=== PATIENT | male | born 1975 | race African-American/Black ===

== ENCOUNTER 2023-08-15 11:15 | Emergency (ER) | payer SELFPAY ==
--- OUTSIDE RECORDS SUMMARY | 2023-08-15 11:21 | XMS REPORT | Continuity of Care Document ---
:1975 Author Organization [facility] t Address [address] [place] [address] Care Team Providers Name Role Phone Antwan Ramey Attending Clinician Unavailable Johnson Attending Clinician Unavailable Daniel Torres Attending Clinician Unavailable Nawaf Borrego Attending Clinician Unavailable Jhoan Vela Attending Clinician Unavailable Da Ivey Attending Clinician Unavailable Molly Grey Attending Clinician Unavailable Antwan Ramey Admitting Clinician Unavailable Johnson Admitting Clinician Unavailable Daniel Torres Admitting Clinician Unavailable Nawaf Borrego Admitting Clinician Unavailable Jhoan Vela Admitting Clinician Unavailable Da Ivey Admitting Clinician Unavailable Molly Grey Admitting Clinician Unavailable Payers Payer Name Policy Type Policy Number Effective Date Expiration Date S yeny [facility]: [facility] [id number] 2022 2022 00:00:00 [place] (PPO) 00:00:00 Problems Condition Condition Condition Status Onset Resolution Last Treating Co mments Source Name Details Category Date Date Treatment Clinician Date History of History of Problem Active [facility] pancreatit Pancreatit 6-01 [place] christopher is is 00:00: Practic 00 e Mixed Mixed Problem Active [facility] hyperlipid Hyperlipid 7-18 [place] christopher emia emia 00:00: Practic 00 e Anemia Anemia Problem Active [facility] 7-18 Family 00:00: Practic 00 e Leukopenia Leukopenia Problem Active [facility] 7[facility] Family 00:00: Practic 00 e Essential Essential Problem Active [facility] hypertensi Hypertensi 6-29 [place] christopher on on 00:00: Practic 00 e Allergies, Adverse Reactions, Alerts Allergy Allergy Status Severity Reaction(s) Onset Inactive Treating Comm ents Source Name Type Date Date Clinician No Known DA Active U 2022-0 [facility] [place] 00:[facility]: d 00 [facility] No Known DA Active U 2020-1 [facility] 0-25 [place] 00:00: d 00 [facility] No Known DA Active U 2020-1 [facility] 0-25 [place] 00:00: d 00 [facility] No Known DA Active U 2020-0 [facility] 9-02 [place] 00:00: d 00 [facility] No Known DA Active U 2020-0 [facility] 7-30 [place] 00:00: d 00 [facility] No Known DA Active U 2020-0 [facility] 7[facility]30 [place] 00:00: d 00 [facility] No Known DA Active U 2020-0 [facility]ie 4-12 [place] 00:00: d 00 [facility] No Known DA Active U 2020-0 [facility] 4-12 [place] 00:00: d 00 [facility] Social History Smoking Status Start Date Stop Date Source Never Smoker [facility] Medications Ordered Filled Start Stop Current Ordering Indication Dosage Frequency Signature Comments Components Source Medication Medication Date Date Medication? Clinician (SIG) Name Name amlodipine amlodipine No amlodipine [facility] 10 mg 10 mg 10 mg Family tablet TAKE tablet TAKE tablet Practic ONE (1) ONE (1) TAKE ONE e TABLET(S) TABLET(S) (1) BY MOUTH BY MOUTH TABLET(S) DAILY. DAILY. BY MOUTH DAILY. carvedilol carvedilol No carvedilol [facility] 25 mg 25 mg 25 mg Family tablet TAKE tablet TAKE tablet Practic ONE (1) ONE (1) TAKE ONE e TABLET(S) TABLET(S) (1) BY MOUTH BY MOUTH TABLET(S) TWICE A DAY TWICE A DAY BY MOUTH . . TWICE A DAY . Creon Creon No Creon [place] 12,000-38,0 12,000-38,0 12,000-38, Family 00-60,000 00-60,000 000-60,000 Practic unit unit unit e capsule,del capsule,del capsule,de ayed ayed layed release release release TAKE TWO TAKE TWO TAKE TWO (2) (2) (2) CAPSULE(S) CAPSULE(S) CAPSULE(S) BY MOUTH BY MOUTH BY MOUTH THREE TIMES THREE TIMES THREE A DAY. A DAY. TIMES A DAY. gemfibrozil gemfibrozil No 1 BID gemfibrozi [facility] 600 mg 600 mg l 600 mg Family tablet Take tablet Take tablet Pract[facility] 1 tablet 1 tablet Take 1 e twice a day twice a day tablet by oral by oral twice a route for route for day by 90 days. 90 days. oral route for 90 days. hydrocodone hydrocodone No hydrocodon [facility] 5 5 e 5 Family mg-acetamin mg-acetamin mg-acetami Practic ophen 325 ophen 325 nophen 325 e mg tablet mg tablet mg tablet TAKE 1 TAKE 1 TAKE 1 TABLET BY TABLET BY TABLET BY MOUTH EVERY MOUTH EVERY MOUTH 8 HOURS 8 HOURS EVERY 8 NEEDED FOR NEEDED FOR HOURS ACUTE ACUTE NEEDED FOR PANCREATITI PANCREATITI ACUTE S S PANCREATIT IS losartan losartan No losartan [facility] 100 mg 100 mg 100 mg Family tablet TAKE tablet TAKE tablet [facility] ONE (1) ONE (1) TAKE ONE e TABLET(S) TABLET(S) (1) BY MOUTH BY MOUTH TABLET(S) DAILY. DAILY. BY MOUTH DAILY. acetaminoph acetaminoph No acetaminop [facility] en 300 en 300 hen 300 Family mg-codeine mg-codeine mg-codeine [facility] 30 mg 30 mg 30 mg e tablet TAKE tablet TAKE tablet 1 TABLET BY 1 TABLET BY TAKE 1 MOUTH EVERY MOUTH EVERY TABLET BY 4 HOURS 4 HOURS MOUTH NEEDED FOR NEEDED FOR EVERY 4 ACUTE PAIN ACUTE PAIN HOURS NEEDED FOR ACUTE PAIN Vital Signs Vital Name Observation Time Observation Value Comments Source BP Diastolic 2022-05-20 00:00:00 73 mm[Hg] [facility] Height 2022-05-20 00:00:00 74 [in_i] [facility] BP Systolic 2022-05-20 00:00:00 180 mm[Hg] [facility] BP Diastolic 2022-03-08 00:00:00 99 mm[Hg] [facility] Height 2022-03-08 00:00:00 74 [in_i] [facility] BMI (Body Mass 2022-03-08 00:00:00 34.9 kg/m2 [facility] BP Systolic 2022-03-08 00:00:00 156 mm[Hg] [facility] Body Weight 2022-03-08 00:00:00 272 [lb_av] [facility] BP Diastolic 2021-04-23 00:00:00 84 mm[Hg] [facility] Height 2021-04-23 00:00:00 74 [in_i] [facility] BMI (Body Mass 2021-04-23 00:00:00 35 kg/m2 [facility] BP Systolic 2021-04-23 00:00:00 122 mm[Hg] [facility] Body Weight 2021-04-23 00:00:00 272.4 [lb_av] [facility] Height 2021-04-05 00:00:00 74 [in_i] [facility] BMI (Body Mass 2021-04-05 00:00:00 34.5 kg/m2 [facility] BP Systolic 2021-04-05 00:00:00 150 mm[Hg] [facility] Body Weight 2021-04-05 00:00:00 268.6 [lb_av] [facility] BP Diastolic 2021-04-05 00:00:00 105 mm[Hg] [facility] Procedures Procedure Date / Time Performed Performing Clinician Sour e Hernia Repair [facility] P racsherita Pancreatectomy [facility] P brian Plan of Care Planned Activity Planned Date Details Comments Source Future Scheduled Test 2022-08-08 lipid panel, serum [facility] 00:00:00 [code = lipid Practice panel, serum] Future Scheduled Test 2022-08-08 CMP, serum or [facility] 00:00:00 plasma [code = Practice CMP, serum or plasma] Encounters Start End Encounter Admission Attending Care Care Encounter Source Date/Time Date/Time Type Type Clinicians Facility Department ID 2021-01-17 Inpatient HCAK HCAK [id number] [facility] 10:50:[address] [facility] 2023-05-06 2023-05-07 Inpatient EM Tanvir [facility] [id number] [facility] 15:20:00 12:22:00 Somali 15 [facility] 2023-03-19 2023-03-19 Outpatient Dara_A VFP VFP [id number] [facility] 00:00:00 00:00:00 [id number] Family Practic e 2022-10-16 2022-10-19 Inpatient EM Daniel Torres [facility] [id number] [facility] 23:53:00 12:04:00 34 [facility] 2022-09-15 2022-09-15 Outpatient Dara_A VFP VFP [id number] [facility] 00:00:00 00:00:00 [id number] Family Practic e 2022-08-11 2022-08-11 Outpatient Dara_A VFP VFP [id number] [facility] 00:00:00 00:00:00 [id number] Family Practic e 2022-07-09 2022-07-10 Inpatient EM Nawaf Borrego [facility] [id number] [facility] 04:52:00 16:32:00 92 [facility] 2022-07-07 2022-07-07 Outpatient Dara_A VFP VFP [id number] [facility] 00:00:00 00:00:00 [id number] Family Practic e 2022-06-01 2022-06-03 Inpatient EM Mirian [facility] [id number] [facility] 22:57:00 12:35:00 Jhoan 89 [facility] 2022-05-25 2022-05-25 Outpatient Dara_A VFP VFP [id number] [facility] 00:00:00 00:00:00 [id number] Family Practic e 2022-05-20 2022-05-20 [place] Dara_A VFP [place] - [id number] [facility] 00:00:00 00:00:00 [facility] [id number] Famil y BACKEND JAVA DEVELOPER: [id number] Medical - Prac tic [address] ([facility]) [place] [address] , Ph. 2022-04-28 2022-04-28 Outpatient Dara_A VFP VFP [id number] - [facility] 01:53:00 01:53:00 [id number] Family Practic e 2022-04-27 2022-04-27 Outpatient Dara_A VFP VFP [id number] - [facility] 11:56:00 11:56:00 [id number] Family Practic e 2022-03-08 2022-03-08 [place] Dara_A VFP [place] - [id number] [facility] 00:00:00 00:00:00 [facility] [id number] Famil y BACKEND JAVA DEVELOPER: [id number] Medical - [facility] [address] ([facility]) [place] [address] , Ph. 2022-03-03 2022-03-03 Outpatient Dara_A VFP VFP [id number] - [facility] 12:42:00 12:42:00 [id number] Family Practic e 2022-02-17 2022-02-17 Outpatient Dara_A VFP VFP [id number] [facility] 05:08:00 05:08:00 [id number] Family Practic e 2021-08-01 2021-08-03 Inpatient EM Loni [facility] [id number] [facility] 15:51:00 13:24:00 Da 69 [facility] 2021-07-01 2021-07-01 Outpatient Dara_A VFP VFP [id number] - [facility] 10:38:00 10:38:00 [id number] Family Practic e 2021-06-09 2021-06-12 Inpatient MAI Zuñiga MED [id number] [facility] 19:56:00 13:00:00 Molly 02 [facility] 2021-06-09 2021-06-12 Inpatient EM Que [facility] [id number] [facility] 19:56:00 13:00:00 Molly 02 [facility] 2021-05-06 2021-05-09 Inpatient EM Nawaf Borrego [facility] [id number] [facility] 08:31:00 10:53:00 96 [facility] 2021-04-23 2021-04-23 [place] Dara_A VFP [place] - [id number] [facility] 00:00:00 [facility]00[facility] [id number] Famil y BACKEND JAVA DEVELOPER: [id number] Medical - Prac tic Fm [address] ([facility]) [place] [address] , Ph. 2021-04-14 2021-04-14 Outpatient Dara_A VFP VFP [id number] [facility] 11:37:00 11:37:00 [id number] Family Practic e 2021-04-08 2021-04-08 Outpatient Dara_A VFP VFP [id number] [facility] 11:58:00 11:58:00 [id number] Family Practic e 2021-04-05 2021-04-05 [place] Dara_A VFP [place] - [id number] [facility] 00:00:00 00:00[facility] [id number] Famil y BACKEND JAVA DEVELOPER: [id number] Medical - Prac tic Fm [address] ([facility]) [place] [address] , Ph. Results Test Description Test Time Test Comments Results Result Comments Source COMPREHENSIVE METABOLIC PANEL 2023-05-07 03:44:00 Test Item Value Reference Range Interpretation Comme nts SODIUM (test code = NA) 135 mmol/L 137-145 L POTASSIUM (test code = K) 4.1 mmol/L 3.4-5.0 N CHLORIDE (test code = CL) 103 mmol/L 98-107 N CARBON DIOXIDE (test code = 24 mmol/L 22-30 N CO2) ANION GAP (test code = GAP) 11 GLUCOSE (test code = GLU) 99 mg/dL 74-106 N BLOOD UREA NITROGEN (test 12 mg/dL 9-20 N code = BUN) GLOMERULAR FILTRATION RATE 83 mL/min T he Glomerular Filtration Rate (test code = GFR) is a calcu lated parameterbased on serum Creati nine, patient age and sex. GFR va luesless than 60 mL/min/1.73 squ are meters are indicative ofCh ronic Kidney Disease. Values less than 15 mL/min/1.73squa re meters indicate Kidney failure. The calculation for GFR is based on the CKD-EPI (20 21) calculation. This formulais race indifferent and is the nando mmended formula for GFRby the [facility] for Adults.The GFR will not calcul ate if the sex is unknown or if t hepatient's age is <18 years. CREATININE (test code = 1.1 mg/dL 0.7-1.3 N CREAT) TOTAL PROTEIN (test code = 6.5 g/dL 6.3-8.2 N * PROT) "A positive bias m ay occur for patients taking Eltrombopag(a bone marrow sti mulant used to treat thrombocy topenia andaplastic anemia)." ALBUMIN (test code = ALB) 3.8 g/dL 3.5-5.0 N CALCIUM (test code = CA) 8.2 mg/dL 8.4-10.2 L BILIRUBIN TOTAL (test code = 0.5 mg/dL 0.2-1.3 N "A positive bias may occur for BILT) patients taking Eltrombopag(a bone marrow sti mulant used to treat thrombocy topenia andaplastic ane zhang)." BILIRUBIN CONJUGATED (test 0 mg/dL 0-0.3 N " A positive bias may occur for code = BILCON) patients taki ng Eltrombopag(a bone marrow sti mulant used to treat thrombocy topenia andaplastic ane zhang)." CONJ UGATED BILIRUBI N IS THE REPLACEMENT ASS AY FOR DIRECTBILIRUBIN . BILIRUBIN UNCONJUGATED (test 0.3 mg/dL 0-1.1 N code = BILUNC) SGOT/AST (test code = AST) 146 U/L 15-46 H SGPT/ALT (test code = ALT) 117 U/L 0-49 H ALKALINE PHOSPHATASE (test 71 U/L 38-126 N code = ALKP) INDEX HEMOLYSIS (test code = < 15 Index/DL 0-100 N HEMINDEX) [id number] 03:44:00 Test Item Value Reference Range Interpretation Comments PHOSPHOROUS (test code = PHOS) 3.6 mg/dL 2.5-4.5 N [id number] 03:44:00 Test Item Value Reference Range Interpretation Comments MAGNESIUM (test code = MAG) 2.0 mg/dL 1.6-2.3 N CBC W/AUTO [id number] 03:13:00 Test Item Value Reference Range Interpretation Comments WHITE BLOOD CELL (test code = 4.0 x10 3/uL 5.0-12.0 L WBC) RED BLOOD CELL (test code = 3.93 x10 6/uL 4.70-6.10 L RBC) HEMOGLOBIN (test code = HGB) 9.2 g/dL 14.0-18.0 L HEMATOCRIT (test code = HCT) 30.7 % 37.0-49.0 L MEAN CELL VOLUME (test code = 78 fL 80-94 L MCV) MEAN CELL HGB (test code = MCH) 23.4 pg 27-31 L MEAN CELL HGB CONCENTRATION 30.0 g/dL 33-37 L (test code = MCHC) RED CELL DISTRIBUTION WIDTH 16.5 % 11.5-15.5 H (test code = RDW) PLATELET COUNT (test code = 197 x10 3/uL 130-400 N PLT) MEAN PLATELET VOLUME (test code 11.3 fL 9.4-16.4 N = MPV) NEUTROPHIL % (test code = NT%) 58.3 % 43-65 N IMMATURE GRANULOCYTE % (test 0.3 % 0.0-2.0 N code = IG%) LYMPHOCYTE % (test code = LY%) 28.1 % 20.5-45.5 N MONOCYTE % (test code = MO%) 9.0 % 5.5-11.7 N EOSINOPHIL % (test code = EO%) 3.3 % 0.9-2.9 H BASOPHIL % (test code = BA%) 1.0 % 0.2-1.0 N NUCLEATED RBC % (test code = 0.0 % 0-1.0 N NRBC%) NEUTROPHIL # (test code = NT#) 2.33 x10 3/uL 2.2-4.8 N IMMATURE GRANULOCYTE # (test 0.01 x10 3/uL 0-0.03 N code = IG#) LYMPHOCYTE # (test code = LY#) 1.12 x10 3/uL 1.3-2.9 L MONOCYTE # (test code = MO#) 0.36 x10 3/uL 0.3-0.8 N EOSINOPHIL # (test code = EO#) 0.13 x10 3/uL 0.0-0.2 N BASOPHIL # (test code = BA#) 0.04 x10 3/uL 0.0-0.1 N [id number] 15:13:00 Test Item Value Reference Range Interpretation Comments GLUBED (test code = GLUBED) 132 MG/DL 74-106 H LIPID PROFILE (CORONARY RISK)2023-05-06 05:28:00 Test Item Value Reference Range Interpretation Comments TRIGLYCERIDES (test 241 mg/dL TRIGLYCE RIDES code = TRIG) REFERENCE RANGE:Normal: < 150 mg/dLBorderline High: 150-199 mg/dLHigh: 200- 499 mg/dLVery High: >=500 mg/dL CHOLESTEROL (test 210 mg/dL CHOLESTERO L code = CHOL) REFERENCE RANGE:DESIRABLE : < 200 mg/dLBORDER LINE: 200-239 mg/dLHI GH: >=240 mg/dL HDL CHOLESTEROL (test 49 mg/dL 40-59 N code = HDL) LIPOPROTEIN LDL (test 116.07 mg/dL 32-99 H code = LDLC) CORONARY RISK FACTOR 4.29 CHOL/H DL RISK MALE: (test code = RISK) 1/2 AVG 3 .43 FEMALE: 1/2 AVG 3.27 AV G 4.97 AVG 4.44 2 X AVG 9.55 2X AVG 7.0 5 3X AVG 23.39 3X AV G 11.04~~~~~~~~~~ ~~~~~ ~~~~~~~~~~~~~~~ ~~~~~ ~~~~~~~~~~~~~~~ ~~~~~ ~~~~~National Cholesterol Education (NCEP ) Guidelines:~~~~ ~~~~~ ~~~~~~~~~~~~~~~ ~~~~~ ~~~~~~~~~~~~~~~ ~~~~~ ~~~~~~~~~~~ H DL Cholesterol<4 0mg/d L: HDL Choleste rol (Major risk fac tor for CHD)>60mg/d L: HDL Cholesterol (Negative risk factor for CHD)40-59mg/dL: Borderline Risk LDL Cholesterol<1 00mg/ dL: Desirable L DL-C [id number] 0-159 mg/dL: Borderli ne High Risk LDL-C 0-189 mg/dL: High ris k LDL-C concentra tion HDL-LDL Cholest pretty is affected by a number of facto rs suchas smoking, age and sex.~~~~~~~~~~~ ~~~~~ ~~~~~~~~~~~~~~~ ~~~~~ ~~~~~~~~~~~~~~~ ~~~~~ ~~~~ GAMMA GLUTAMYL [id number] 05:26:00 Test Item Value Reference Range Interpretation Comments GAMMA GLUTAMYL TRANSPEPTIDASE (test 261 U/L 12-58 H code = GGT) [id number] 05:26:00 Test Item Value Reference Range Interpretation Comments ALCOHOL (test code = < 10 mg/dL <10 ~~~~~~ ~~~~~~~~~~~~~~~ ALC) ~~~~~~~~~~~~~~~ ~~~~~~~ ~~~~~~~ RESULTS ARE TO BE USED FOR MED ICAL PURPOSES ONLY.F OR LEGAL PURPOSES THE SPECIMEN MUST B E COLLECTED BY A CHAINOF CUSTODY. LEGAL TESTING IS NOT PERFORME D BY THIS FACILITY. ~~~~~~~~~~~~~~~ ~~~~~~~ ~~~~~~~~~~~~~~~ ~~~~~~~ ~~~~~~ COMPREHENSIVE METABOLIC [id number] 05:18:00 Test Item Value Reference Range Interpretation Comments SODIUM (test code = 136 mmol/L 137-145 L NA) POTASSIUM (test 4.1 mmol/L 3.4-5.0 N code = K) CHLORIDE (test code 103 mmol/L 98-107 N = CL) CARBON DIOXIDE 28 mmol/L 22-30 N (test code = CO2) ANION GAP (test 10 code = GAP) GLUCOSE (test code 98 mg/dL 74-106 N = GLU) BLOOD UREA NITROGEN 12 mg/dL 9-20 N (test code = BUN) GLOMERULAR 93 mL/min The Glomerular FILTRATION RATE Filtration R ate is a (test code = GFR) calculated parameterbased on serum Creatinine, pat ient age and sex. GFR va luesless than 60 mL/min/ 1.73 square meters a re indicative ofCh ronic Kidney Disease. Values less than 15 mL/min/1.73squa re meters indicate Kidney failure. The calculation for GFR is based on the CK D-EPI (2020) calculat ion. This formulais race indifferent and is the recommended for nanci for GFRby the [facility] on for Adults.The GFR will not calculate if th e sex is unknown or if thepatient's ag e is <18 years. CREATININE (test 1.0 mg/dL 0.7-1.3 N code = CREAT) TOTAL PROTEIN (test 7.3 g/dL 6.3-8.2 N code = PROT) " A positive bias m ay occur for patients ta janessa Eltrombopag(a b one marrow stimulan t used to treat thrombocytopeni a andaplastic anemia)." ALBUMIN (test code 4.1 g/dL 3.5-5.0 N = ALB) CALCIUM (test code 8.9 mg/dL 8.4-10.2 N = CA) BILIRUBIN TOTAL 0.7 mg/dL 0.2-1.3 N "A positive bias may (test code = BILT) occur for patients taking Eltrombo pag(a bone marrow sti mulant used to treat thrombocytopeni a andaplastic ane zhang)." BILIRUBIN 0 mg/dL 0-0.3 N "A positive roxy s may CONJUGATED (test occur for p atients code = BILCON) taking Eltrom bopag(a bone marrow sti mulant used to treat thrombocytopeni a andaplastic ane zhang)." C ONJUGATE D BILIRUBIN IS THE REPLACEMENT ASS AY FOR DIRECTBILIRUBIN . BILIRUBIN 0.3 mg/dL 0-1.1 N UNCONJUGATED (test code = BILUNC) SGOT/AST (test code 116 U/L 15-46 H = AST) SGPT/ALT (test code 86 U/L 0-49 H = ALT) ALKALINE 72 U/L 38-126 N PHOSPHATASE (test code = ALKP) INDEX HEMOLYSIS < 15 0-100 N (test code = Index/DL HEMINDEX) [id number] 05:18:00 Test Item Value Reference Range Interpretation Comments PHOSPHOROUS (test code = PHOS) 3.8 mg/dL 2.5-4.5 N [id number] 05:18:00 Test Item Value Reference Range Interpretation Comments MAGNESIUM (test code = MAG) 2.1 mg/dL 1.6-2.3 N CBC W/AUTO [id number] 05:07:00 Test Item Value Reference Range Interpretation Comments WHITE BLOOD CELL (test code = 4.9 x10 3/uL 5.0-12.0 L WBC) RED BLOOD CELL (test code = 4.28 x10 6/uL 4.70-6.10 L RBC) HEMOGLOBIN (test code = HGB) 10.0 g/dL 14.0-18.0 L HEMATOCRIT (test code = HCT) 33.5 % 37.0-49.0 L MEAN CELL VOLUME (test code = 78 fL 80-94 L MCV) MEAN CELL HGB (test code = MCH) 23.4 pg 27-31 L MEAN CELL HGB CONCENTRATION 29.9 g/dL 33-37 L (test code = MCHC) RED CELL DISTRIBUTION WIDTH 16.5 % 11.5-15.5 H (test code = RDW) PLATELET COUNT (test code = 207 x10 3/uL 130-400 N PLT) MEAN PLATELET VOLUME (test code 11.3 fL 9.4-16.4 N = MPV) NEUTROPHIL % (test code = NT%) 68.4 % 43-65 H IMMATURE GRANULOCYTE % (test 0.2 % 0.0-2.0 N code = IG%) LYMPHOCYTE % (test code = LY%) 20.5 % 20.5-45.5 N MONOCYTE % (test code = MO%) 8.5 % 5.5-11.7 N EOSINOPHIL % (test code = EO%) 1.8 % 0.9-2.9 N BASOPHIL % (test code = BA%) 0.6 % 0.2-1.0 N NUCLEATED RBC % (test code = 0.0 % 0-1.0 N NRBC%) NEUTROPHIL # (test code = NT#) 3.37 x10 3/uL 2.2-4.8 N IMMATURE GRANULOCYTE # (test 0.01 x10 3/uL 0-0.03 N code = IG#) LYMPHOCYTE # (test code = LY#) 1.01 x10 3/uL 1.3-2.9 L MONOCYTE # (test code = MO#) 0.42 x10 3/uL 0.3-0.8 N EOSINOPHIL # (test code = EO#) 0.09 x10 3/uL 0.0-0.2 N BASOPHIL # (test code = BA#) 0.03 x10 3/uL 0.0-0.1 N - CT ABD PELVIS [id number] 19:04:00 [facility] 1975 Sex: M FAX: Bettie Chang [phone] [place]: St: REG Name: OLIVIA COOK [facility] : 1975 Age/S: 48/M [address] Unit: [id number] Loc: [place] [address] Phys: Bettie Arnold Acct: [id number] Dis Date: Status: REG ER PHONE #: [phone] Exam Date: 05/05/20231829 FAX #: [phone] Reason: R upper abdomen pain radiating to back EXAMS: CPT CODE: [id number] CT ABD PELVIS W/CONT [id number] EXAM: CT abdomen and pelvis with contrast. LOCATION: H 12 HISTORY: R upper abdomen pain radiating to back TECHNIQUE: Enhanced spiral slices were taken from the domes of the diaphragm, through the pubic symphysis. Sagittal and coronal, and where appropriate, MIP reformations were performed. One or more of the following dose reduction techniques were used: Automated exposure control, adjustment of the mA and/or kV according to patient size, and/or utilization of iterative reconstruction technique. Unless otherwisespecified, incidental findings do not require dedicated imaging follow-up. FINDINGS: The gallbladderis unremarkable. No pericholecystic fluid or wall thickening is present. There is an 8 cm right hepatic lucency with peripheral poles of enhancement in keeping with a cavernous hemangioma. The liver isotherwise unremarkable. The intra-and extrahepatic biliary tree is normal. The hepatic and portal veins are patent. The pancreas is normal. The pancreatic duct is normal in caliber. The spleen is normal with a small cyst noted. The adrenal glands are normal in size and shape. The kidneys are unremarkable. No perinephric fluid collections or hydronephrosis is seen. The large and small intestine are normal in caliber. The appendix is normal. No lymphadenopathy is found in the abdomen or the pelvis. No free fluid is seen. The pelvic structures are unremarkable. The lung bases are clear. IMPRESSION: 1. No acute abdominal findings. 2. Right hepatic hemangioma. 3. Otherwise unremarkable exam. PAGE 1 Signed Report (CONTINUED) FAX: Bettie Cade [facility] [phone] [place]: St: REG Name: OLIVIA COOK [facility] : 1975 Age/S: 48/M [address] Unit: [id number] Loc: [place] [address] Phys: Bettie Arnold Acct: [id number] Dis Date: Status: REG ER PHONE #: [phone] Exam Date: 2023 1830 FAX #: [phone] Reason: R upper abdomen pain radiating to back EXAMS: CPT CODE: [id number] CT ABD PELVIS W/CONT [id number] (Continued) at 1904 Reported and signed by: Yonatan Brandt MD CC: Bettie Arnold Technologist: Linda Crespo; AMILCAR HOSKINS Trnscrd Dt/Tm: 2023 (1903) tDAMON Orig Print D/T: S: 2023 (1906 PAGE 2 Signed [id number] 18:52:00 Test Item Value Reference Range Interpretation Comments LIPASE (test code = LIP) 794 U/L 23-300 H [id number] 18:52:00 Test Item Value Reference Range Interpretation Comments TROPONIN-I < 0.012 ng/mL 0.012-0.033 L (test code = TROPI) Please be advised of the updated ref erence ranges for the new Chemistry instrumentation . VITROS TROPO DONYA I CRITERIANORM AL PATIENT W/O CIRCULATING TNI: 0.012-0.033 ng/ mLAMI DIAGNOSTIC CUTO FF: >/= 0.120 ng/mL~~~~~~~~~~ ~~~~~~~~~~~~ ~~~~~~~~~~~~~~~ ~~~~~~~~~~~~ ~~~~~~~~~~The u se of serial sampling and te sting protocol is are commended practice.An kamila vated troponin level alone is often not suffi cient fordiagnosis of myocardial infarction. Tro ponin results obtaine d by different assay s may vary.Evaluation of the extent of myoca rdial damage based onincreas e of troponin would be valid only if similar methodology is used.~~~~~~~~~~ ~~~~~~~~~~~~ ~~~~~~~~~~~~~~~ ~~~~~~~~~~~~ ~~~~~~~~~~ A PO SITIVE BIAS MAY OCCUR FOR P ATIENTS TAKING BIOTIN SUPPLEMENTS~~~~ ~~~~~~~~~~~~ ~~~~~~~~~~~~~~~ ~~~~~~~~~~~~ ~~~~~~~~~~~~~~~ ~ BASIC METABOLIC [id number] 18:52:00 Test Item Value Reference Range Interpretation Comments SODIUM (test code = 138 mmol/L 137-145 N NA) POTASSIUM (test 4.1 mmol/L 3.4-5.0 N code = K) CHLORIDE (test code 102 mmol/L 98-107 N = CL) CARBON DIOXIDE 25 mmol/L 22-30 N (test code = CO2) ANION GAP (test 14 code = GAP) GLUCOSE (test code 126 mg/dL 74-106 H = GLU) BLOOD UREA NITROGEN 12 mg/dL 9-20 N (test code = BUN) GLOMERULAR 83 mL/min The Glomerular FILTRATION RATE Filtration R ate is a (test code = GFR) calculated parameterbased on serum Creatinin e, patient age and sex. GFR valuesless than 60 mL/min/1.73 squ are meters are agustina cative ofChronic Kidne y Disease. Values less than 15 mL/min/1.73squa re meters indicate Kidney failure. The calculation for GFR is based on the CK D-EPI (2020) calculat ion. This formulais race indifferent and is the recommended for nanci for GFRby the N ational Kidney Foundati on for Adults.The GFR will not calculate i f the sex is unknown or if thepatient's ag e is <18 years. CREATININE (test 1.1 mg/dL 0.7-1.3 N code = CREAT) CALCIUM (test code 8.8 mg/dL 8.4-10.2 N = CA) INDEX HEMOLYSIS < 15 Index/DL 0-100 N (test code = HEMINDEX) LIVER FUNCTION [id number] 18:52:00 Test Item Value Reference Range Interpretation Comments TOTAL PROTEIN (test 7.6 g/dL 6.3-8.2 N code = PROT) "A positive bias may occur for patients taking Eltrombopag(a b one marrow stimulan t used to treat thrombocy topenia andaplastic anemia)." ALBUMIN (test code = 4.4 g/dL 3.5-5.0 N ALB) BILIRUBIN TOTAL 0.7 mg/dL 0.2-1.3 N "A positive bias may (test code = BILT) occur for patients taking Eltrombo pag(a bone marrow sti mulant used to treat thrombocytopeni a andaplastic ane zhang)." BILIRUBIN CONJUGATED 0 mg/dL 0-0.3 N "A posi tive bias may (test code = BILCON) occur f or patients taking Eltrombo pag(a bone marrow sti mulant used to treat thrombocytopeni a andaplastic ane zhang)." CON JUGATED BILIRUBIN IS TH E REPLACEMENT ASS AY FOR DIRECTBILIRUBIN . BILIRUBIN 0.6 mg/dL 0-1.1 N UNCONJUGATED (test code = BILUNC) SGOT/AST (test code 109 U/L 15-46 H = AST) SGPT/ALT (test code 77 U/L 0-49 H = ALT) ALKALINE PHOSPHATASE 76 U/L 38-126 N (test code = ALKP) BEDSIDE [id number] 18:40:00 Test Item Value Reference Range Interpretation Comments BEDSIDE CREATININE (test code = 1.3 mg/dL 0.66-1.25 H CREATBED) URINALYSIS [id number] 18:36:00 Test Item Value Reference Range Interpretation Comments UA COLOR (test code Barby Yellow A = COLU) UA APPEARANCE (test Clear Clear code = APPU) UA GLUCOSE DIPSTICK Negative Negative (test code = DGLUU) UA BILIRUBIN Negative Negative DIPSTICK (test code = BILU) UA KETONE DIPSTICK Trace mg/dL Negative A (test code = KETU) UA SPECIFIC GRAVITY 1.034 <1.030 A (test code = SGU) UA BLOOD DIPSTICK Negative Negative (test code = CANDY) UA PH DIPSTICK (test 5.0 5.0-8.0 code = BOUCHRA) UA PROTEIN DIPSTICK 30 (1+) mg/dL Negative A (test code = PROU) UA UROBILINOGEN Negative mg/dL Negative DIPSTICK (test code = URO) UA NITRITE DIPSTICK Negative Negative (test code = TERESSA) UA LEUKOCYTE NEGATIVE Negative ESTERASE DIPSTICK (test code = LEUU) UA WBC (test code = 6-10 /HPF See_Comment A [Automa madhu WBCU) message] The system which generated this result transmit madhu reference range : <4-5. The reference range was not used to interpret this result as normal/abnormal . UA RBC (test code = 4-5 /HPF See_Comment A [Automa madhu RBCU) message] The system which generated this result transmit madhu reference range : <4-5. The reference range was not used to interpret this result as normal/abnormal . UA BACTERIA (test None /HPF None-Rare code = BACU) UA SQUAMOUS CELLS 0-5 (RARE) /HPF See_Comment [Autom ated (test code = SQU) message] T he system which generated this result transmit madhu reference range : 0-5 (RARE). The reference range was not used to interpret this result as normal/abnormal . UA MUCUS (test code 2+ /LPF See_Comment A [Automa madhu = MUCU) message] The system which generated this result transmit madhu reference range : <Rare. The reference range was not used to interpret this result as normal/abnormal . CBC W/AUTO [id number] 18:30:00 Test Item Value Reference Range Interpretation Comments WHITE BLOOD CELL (test code = 4.5 x10 3/uL 5.0-12.0 L WBC) RED BLOOD CELL (test code = 4.64 x10 6/uL 4.70-6.10 L RBC) HEMOGLOBIN (test code = HGB) 10.8 g/dL 14.0-18.0 L HEMATOCRIT (test code = HCT) 35.7 % 37.0-49.0 L MEAN CELL VOLUME (test code = 77 fL 80-94 L MCV) MEAN CELL HGB (test code = MCH) 23.3 pg 27-31 L MEAN CELL HGB CONCENTRATION 30.3 g/dL 33-37 L (test code = MCHC) RED CELL DISTRIBUTION WIDTH 16.2 % 11.5-15.5 H (test code = RDW) PLATELET COUNT (test code = 219 x10 3/uL 130-400 N PLT) MEAN PLATELET VOLUME (test code 10.9 fL 9.4-16.4 N = MPV) NEUTROPHIL % (test code = NT%) 66.7 % 43-65 H IMMATURE GRANULOCYTE % (test 0.2 % 0.0-2.0 N code = IG%) LYMPHOCYTE % (test code = LY%) 20.8 % 20.5-45.5 N MONOCYTE % (test code = MO%) 9.2 % 5.5-11.7 N EOSINOPHIL % (test code = EO%) 2.2 % 0.9-2.9 N BASOPHIL % (test code = BA%) 0.9 % 0.2-1.0 N NUCLEATED RBC % (test code = 0.0 % 0-1.0 N NRBC%) NEUTROPHIL # (test code = NT#) 2.98 x10 3/uL 2.2-4.8 N IMMATURE GRANULOCYTE # (test 0.01 x10 3/uL 0-0.03 N code = IG#) LYMPHOCYTE # (test code = LY#) 0.93 x10 3/uL 1.3-2.9 L MONOCYTE # (test code = MO#) 0.41 x10 3/uL 0.3-0.8 N EOSINOPHIL # (test code = EO#) 0.10 x10 3/uL 0.0-0.2 N BASOPHIL # (test code = BA#) 0.04 x10 3/uL 0.0-0.1 N VITAMIN [id number] 12:59:00 Test Item Value Reference Range Interpretation Comments VITAMIN B12 (test code 340 pg/mL 239-931 N = VITB12) *A positive bias m ay occur for patie nts taking BIOTINsupplemen ts. Spec Comments: ADD TO BLOOD IN LAB IF POSSIBLEFOLIC [id number] 12:59:00 Test Item Value Reference Range Interpretation Comments FOLIC ACID (test 14.5 ng/mL REFERENCE R DEBI:2.76 - code = FOL) >20 ng/mL A positive bias m ay occur on patients rosey ing BIOTINsupplemen ts. Spec Comments: ADD TO BLOOD IN LAB IF [id number] 12:59:00 Test Item Value Reference Range Interpretation Comments FERRITIN (test code = 13.6 ng/mL 17.9-464 L CRISTY) A positive bias m ay occur for patie nts taking BIOTINsupplemen ts. Spec Comments: ADD TO BLOOD IN LAB IF POSSIBLECOMPREHENSIVE METABOLIC PANEL 2022-10-19 04:52:00 Test Item Value Reference Range Interpretation Comments SODIUM (test code = 137 mmol/L 137-145 N NA) POTASSIUM (test 4.1 mmol/L 3.4-5.0 N code = K) CHLORIDE (test code 108 mmol/L 98-107 H = CL) CARBON DIOXIDE 25 mmol/L 22-30 N (test code = CO2) ANION GAP (test 8 code = GAP) GLUCOSE (test code 94 mg/dL 74-106 N = GLU) BLOOD UREA NITROGEN 9 mg/dL 9-20 N (test code = BUN) GLOMERULAR 83 mL/min The Glomerular FILTRATION RATE Filtration R ate is a (test code = GFR) calculated parameterbased on serum Creatinine, pat ient age and sex. GFR va luesless than 60 mL/min/ 1.73 square meters a re indicative ofCh ronic Kidney Disease. Values less than 15 mL/min/1.73squa re meters indicate Kidney failure. The calculation for GFR is based on the CK D-EPI (2020) calculat ion. This formulais race indifferent and is the recommended for nanci for GFRby the Natio nal Kidney Foundati on for Adults.The GFR will not calculate if th e sex is unknown or if thepatient's ag e is <18 years. CREATININE (test 1.1 mg/dL 0.7-1.3 N code = CREAT) TOTAL PROTEIN (test 6.2 g/dL 6.3-8.2 L code = PROT) " A positive bias m ay occur for patients ta janessa Eltrombopag(a b one marrow stimulan t used to treat thrombocytopeni a andaplastic anemia)." ALBUMIN (test code 3.7 g/dL 3.5-5.0 N = ALB) CALCIUM (test code 8.2 mg/dL 8.4-10.2 L = CA) BILIRUBIN TOTAL 0.5 mg/dL 0.2-1.3 N "A positive bias may (test code = BILT) occur for patients taking Eltrombo pag(a bone marrow sti mulant used to treat thrombocytopeni a andaplastic ane zhang)." BILIRUBIN 0 mg/dL 0-0.3 N "A positive roxy s may CONJUGATED (test occur for p atients code = BILCON) taking Eltrom bopag(a bone marrow sti mulant used to treat thrombocytopeni a andaplastic ane zhang)." C ONJUGATE D BILIRUBIN IS THE REPLACEMENT ASS AY FOR DIRECTBILIRUBIN . BILIRUBIN 0.1 mg/dL 0-1.1 N UNCONJUGATED (test code = BILUNC) SGOT/AST (test code 60 U/L 15-46 H = AST) SGPT/ALT (test code 30 U/L 0-49 N = ALT) ALKALINE 69 U/L 38-126 N PHOSPHATASE (test code = ALKP) INDEX HEMOLYSIS 21 Index/DL 0-100 N (test code = HEMINDEX) TOTAL IRON BINDING [id number] 08:11:00 Test Item Value Reference Range Interpretation Comments TOTAL IRON BINDING 457 ug/dL 261-462 N ~~~~~~~~~ ~~~~~~~~~~~~~ CAPACITY (test code = ~~~~~~ ~~~~~~~~~~~~~~~~ TIBC) ~~~~~~~~~~~~~Re ported result verified with auto dilution procedure.~~~~~ ~~~~~~~ ~~~~~~~~~~~~~~~ ~~~~~~~ ~~~~~~~~~~~~~~~ ~~~~~~~ ~ Spec Comments: ADD TO BLOOD IN LAB IF [id number] 07:29:00 Test Item Value Reference Range Interpretation Comments IRON (test code = IRON) 41 ug/dL 49-181 L Spec Comments: ADD TO BLOOD IN LAB IF POSSIBLECOMPREHENSIVE METABOLIC PANEL 2022-10-18 07:21:00 Test Item Value Reference Range Interpretation Comments SODIUM (test code = 136 mmol/L 137-145 L NA) POTASSIUM (test 4.0 mmol/L 3.4-5.0 N code = K) CHLORIDE (test code 106 mmol/L 98-107 N = CL) CARBON DIOXIDE 24 mmol/L 22-30 N (test code = CO2) ANION GAP (test 10 code = GAP) GLUCOSE (test code 101 mg/dL 74-106 N = GLU) BLOOD UREA NITROGEN 9 mg/dL 9-20 N (test code = BUN) GLOMERULAR 93 mL/min The Glomerular FILTRATION RATE Filtration R ate is a (test code = GFR) calculated parameterbased on serum Creatinine, pat ient age and sex. GFR va luesless than 60 mL/min/ 1.73 square meters a re indicative ofCh ronic Kidney Disease. Values less than 15 mL/min/1.73squa re meters indicate Kidney failure. The calculation for GFR is based on the CK D-EPI (2020) calculat ion. This formulais race indifferent and is the recommended for nanci for GFRby the Natio nal Kidney Foundati on for Adults.The GFR will not calculate if th e sex is unknown or if thepatient's ag e is <18 years. CREATININE (test 1.0 mg/dL 0.7-1.3 N code = CREAT) TOTAL PROTEIN (test 6.4 g/dL 6.3-8.2 N code = PROT) " A positive bias m ay occur for patients ta janessa Eltrombopag(a b one marrow stimulan t used to treat thrombocytopeni a andaplastic anemia)." ALBUMIN (test code 3.8 g/dL 3.5-5.0 N = ALB) CALCIUM (test code 8.3 mg/dL 8.4-10.2 L = CA) BILIRUBIN TOTAL 0.8 mg/dL 0.2-1.3 N "A positive bias may (test code = BILT) occur for patients taking Eltrombo pag(a bone marrow sti mulant used to treat thrombocytopeni a andaplastic ane zhang)." BILIRUBIN 0 mg/dL 0-0.3 N "A positive roxy s may CONJUGATED (test occur for p atients code = BILCON) taking Eltrom bopag(a bone marrow sti mulant used to treat thrombocytopeni a andaplastic ane zhang)." C ONJUGATE D BILIRUBIN IS THE REPLACEMENT ASS AY FOR DIRECTBILIRUBIN . BILIRUBIN 0.4 mg/dL 0-1.1 N UNCONJUGATED (test code = BILUNC) SGOT/AST (test code 37 U/L 15-46 N = AST) SGPT/ALT (test code 26 U/L 0-49 N = ALT) ALKALINE 67 U/L 38-126 N PHOSPHATASE (test code = ALKP) INDEX HEMOLYSIS < 15 0-100 N (test code = Index/DL HEMINDEX) [id number] 07:21:00 Test Item Value Reference Range Interpretation Comments PHOSPHOROUS (test code = PHOS) 3.1 mg/dL 2.5-4.5 N [id number] 07:21:00 Test Item Value Reference Range Interpretation Comments MAGNESIUM (test code = MAG) 2.2 mg/dL 1.6-2.3 N RETICULOCYTE [id number] 06:22:00 Test Item Value Reference Range Interpretation Comments RETICULOCYTE COUNT (test code = RETICA) 1.6 % 0.5-1.5 H Spec Comments: ADD TO BLOOD IN LAB IF POSSIBLELIPID PROFILE (CORONARY RISK) 2022-10-17 07:41:00 Test Item Value Reference Range Interpretation Comments TRIGLYCERIDES (test 455 mg/dL TRIGLYCE RIDES code = TRIG) REFERENCE RANGE:Normal: < 150 mg/dLBorderline High: 150-199 mg/dLHi gh: 200-499 mg/dLVe ry High: >=500 mg/ dL CHOLESTEROL (test 187 mg/dL CHOLESTERO L REFERENCE code = CHOL) RANGE:DESIRABLE : < 200 mg/dLBORDER LINE: 200-239 mg/dLHI GH: >=240 mg/dL HDL CHOLESTEROL (test 50 mg/dL 40-59 N code = HDL) LIPOPROTEIN LDL (test 77.45 mg/dL 32-99 N code = LDLC) CORONARY RISK FACTOR 3.74 CHOL/H DL RISK MALE: (test code = RISK) 1/2 AVG 3 .43 FEMALE: 1/2 AVG 3.27 AV G 4.97 AVG 4.44 2X AVG 9.55 2X AVG 7.05 3X AVG 23.39 3X AVG 11.04~~~~~~~~~~ ~~~~~~ ~~~~~~~~~~~~~~~ ~~~~~~ ~~~~~~~~~~~~~~~ ~~~~~~ ~~National Cholesterol Edu cation (NCEP) Guidelines:~~~~ ~~~~~~ ~~~~~~~~~~~~~~~ ~~~~~~ ~~~~~~~~~~~~~~~ ~~~~~~ ~~~~~~~~ HDL Cholesterol<4 0mg/dL : HDL Cholester ol (Major risk fac tor for CHD)>60mg/d L: HDL Cholesterol (Ne gative risk factor for CHD)40-59mg/dL: Borderline Risk LDL Cholesterol<1 00mg/d L: Desirable LD L-C [id number] 0-159m g/dL: Borderlin e High Risk LDL-C [id number] 0-189m g/dL: High risk LDL-C concentration H DL-LDL Cholesterol is affected by a n umber of factors such as smoking, age an d sex.~~~~~~~~~~~ ~~~~~~ ~~~~~~~~~~~~~~~ ~~~~~~ ~~~~~~~~~~~~~~~ ~~~~~~ ~ PROTHROMBIN [id number] 07:14:00 Test Item Value Reference Range Interpretation Comments PROTHROMBIN TIME 12.1 SECONDS 9.2-12.1 N PATIENT (test code = PTP) INTERNATIONAL NORMAL 1.1 The INR is to be used RATIO (test code = only for monitoring INR) ORAL ANTICOAGULANTTH ERAPY. Indication INR Value1. Prophylaxis/julia atment of: Venous Thro mbosis, Pulmonary Embol ism 2.0 - 3.02. Prevent ion of systemic emboli sm from: Tissue he art valves 2.0 - 3. 0 Acute myocardial infa rction (to present sys temic embolism)* 2.0 - 3.0 Valvular heart disease 2.0 - 3.0 Atria l fibrillation 2 .0 - 3.03. Mechanica l prosthetic valv es (high risk) 2.5 - 3.5 * If oral anticoagulant t herapy is elected to preventrecurren t myocardial infa rction, an INR of 2.5-3 .5 isrecommended, consistent with Food and Drug Administrationr ecommen dations. THROMBOPLASTIN TIME [id number] 07:14:00 Test Item Value Reference Range Interpretation Comments THROMBOPLASTIN TIME 28.3 SECONDS 23.4-37.0 N Therape utic Range PARTIAL (test code = for Hep ehsan PTT) EFFECTIVE Heparin IU/mL a PTT Seconds0.3 64.3 0.7 88.8 - CT ABD PELVIS [id number] 21:00:00 [facility] 1975 Sex: M FAX: Bettie Chang [phone] [place]: St: REG FAX: Phillip Baker MD [phone] Name: OLIVIA COOK [facility] : 1975 Age/S: 47/M [address] Unit: [id number] Loc: [place] [address] Phys: Mark ArnoldaAPRNNElvira Acct: [id number] Dis Date: Status: REG ER PHONE #: [phone] Exam Date: 10/16/20222019 FAX #: [phone] Reason: R upper and mid abdominal pain EXAMS: CPT CODE: [id number] CT ABD PELVIS W/CONT 12722 CT SCAN OF THE ABDOMEN AND PELVIS WITH CONTRAST Dictation Location: N13 CLINICAL HISTORY:Right upper and mid abdominal pain, history of hepatic hemangioma and pancreatitis TECHNIQUE: Helical CT of the abdomen and pelvis was performed after the administration of 80 cc of Isovue 370 without complication. Coronal and sagittal reconstructions were obtained. Unless otherwise specified, incidental findings do not require dedicated imaging follow-up. This exam was performed according to our departmental dose optimization program, which includes automated exposure control, adjustment of the mA and/ or KV according to patient size and/or use of iterative reconstruction technique. DLP 921 mGy*cmComparison study July 09, 2022 and January 17, 2021 FINDINGS: The visualized lung bases are clear. No evidence of pleural effusion. Liver is moderately enlarged measuring 22.3 cm at the mid clavicular line. An 8.7 cm hemangioma is stable in the right lobe of the liver best seen on axial image 27. No new liver lesions are demonstrated. Small 1 cm cyst is present in the lateral segment left lobe of theliver. No further imaging follow-up recommended. There is mild hepatic steatosis. The gallbladder and biliary ducts, spleen, and adrenal glands are normal. There is increased seen small to moderate amount of fluid around the uncinate process and head of the pancreas, and around the 2nd and 3rd portionof the duodenum consistent with an acute moderate pancreatitis. Pancreatic parenchyma enhances normally without evidence of necrosis. No evidence of ductal dilatation. No evidence of obvious stone in the distal common bile duct. No evidence of focal drainable fluid collections. There is no evidence ofhydronephrosis, solid mass, pyelonephritis or obstructing kidney stone. Visualized ureters are unremarkable. PAGE 1 Signed Report (CONTINUED) FAX: Ivan LeonJennifer hobbsjulio APRNNP [phone] [place]: St: REG F AX: Phillip Baker MD [phone] Name: OLIVIA COOK [facility] Raghavendra : 1975 Age/S: 47/M [address] Unit: [id number] Loc: [place] [address] Phys: Bettie Arnold Acct: [id number] Dis Date: Status: REG ER PHONE #: [phone] Exam Date: 10/16/20222019 FAX #: [phone] Reason: R upper and mid abdominal pain EXAMS: CPT CODE: [id number] CT ABD PELVIS W/CONT 33941 (Continued) There is no abdominal adenopathy. Sutures at the jejunum again noted. No evidence of small bowel wall thickening or suspicious dilatation. There is no evidence of appendicitis, diverticulitis, colitis or bowel obstruction. The stomach is unremarkable without wall thickening or distention. Normal air-filled appendix is seen on axial image 73. In the pelvis, there is no free fluid or adenopathy present. The bladder is unremarkable without wall thickening, distention, calculi or mass. There are bilateral fat-containing inguinalhernias without evidence of tissue ischemia. They do not contain bowel. Left-sided moderate hydrocele is again demonstrated in the scrotum. The vascular, bony and muscular structures are unremarkable. IMPRESSION: 1. Acute mild to moderate pancreatitis, more severe than on July 2022. No evidence ofpancreatic necrosis or focal drainable fluid collections. 2. Stable hepatomegaly, hepatic steatosis and right hepatic hemangioma. 3. Stable scrotal hydrocele incidentally noted. at 2100 Reported and signed by: Colette Root MD CC: Bettie Baker MD Technologist: Kristal Cordoba; ETTA LARA RT (R) Trnscrd Dt/Tm: 10/16/2022 (2099) Oliva.[email or web address] Orig Print D/T: S: 10/16/2022 (2103 PAGE 2 Signed ReportBASIC METABOLIC [id number] 20:28:00 Test Item Value Reference Range Interpretation Comments SODIUM (test code = 136 mmol/L 137-145 L NA) POTASSIUM (test 4.0 mmol/L 3.4-5.0 N code = K) CHLORIDE (test code 103 mmol/L 98-107 N = CL) CARBON DIOXIDE 26 mmol/L 22-30 N (test code = CO2) ANION GAP (test 12 code = GAP) GLUCOSE (test code 98 mg/dL 74-106 N = GLU) BLOOD UREA NITROGEN 17 mg/dL 9-20 N (test code = BUN) GLOMERULAR 93 mL/min The Glomerular FILTRATION RATE Filtration R ate is a (test code = GFR) calculated parameterbased on serum Creatinine, pat ient age and sex. GFR va luesless than 60 mL/min/ 1.73 square meters a re indicative ofCh ronic Kidney Disease. Values less than 15 mL/min/1.73squa re meters indicate Kidney failure. The calculation for GFR is based on the CK D-EPI (2020) calculat ion. This formulais race indifferent and is the recommended for nanci for GFRby the Natio nal Kidney Foundati on for Adults.The GFR will not calculate if th e sex is unknown or if thepatient's ag e is <18 years. CREATININE (test 1.0 mg/dL 0.7-1.3 N code = CREAT) CALCIUM (test code 9.3 mg/dL 8.4-10.2 N = CA) INDEX HEMOLYSIS 30 Index/DL 0-100 N (test code = HEMINDEX) LIVER FUNCTION [id number] 20:28:00 Test Item Value Reference Range Interpretation Comments TOTAL PROTEIN (test 8.2 g/dL 6.3-8.2 N code = PROT) "A positive bias may occur for patients taking Eltrombopag(a b one marrow stimulan t used to treat thrombocy topenia andaplastic anemia)." ALBUMIN (test code = 4.7 g/dL 3.5-5.0 N ALB) BILIRUBIN TOTAL 1.3 mg/dL 0.2-1.3 N "A positive bias may (test code = BILT) occur for patients taking Eltrombo pag(a bone marrow sti mulant used to treat thrombocytopeni a andaplastic ane zhang)." BILIRUBIN CONJUGATED 0 mg/dL 0-0.3 N "A posi tive bias may (test code = BILCON) occur f or patients taking Eltrombo pag(a bone marrow sti mulant used to treat thrombocytopeni a andaplastic ane zhang)." CON JUGATED BILIRUBIN IS TH E REPLACEMENT ASS AY FOR DIRECTBILIRUBIN . BILIRUBIN 0.8 mg/dL 0-1.1 N UNCONJUGATED (test code = BILUNC) SGOT/AST (test code 57 U/L 15-46 H = AST) SGPT/ALT (test code 38 U/L 0-49 N = ALT) ALKALINE PHOSPHATASE 88 U/L 38-126 N (test code = ALKP) [id number] 20:28:00 Test Item Value Reference Range Interpretation Comments LIPASE (test code = LIP) 1000 U/L 23-300 H [id number] 20:28:00 Test Item Value Reference Range Interpretation Comments TROPONIN-I < 0.012 ng/mL 0.012-0.033 L (test code = TROPI) Please be advised of the updated ref erence ranges for the new Chemistry instrumentation . VITROS TROPO DONYA I CRITERIANORM AL PATIENT W/O CIRCULATING TNI: 0.012-0.033 ng/mLCIRCULATIN G TNI PRESENT: 0.034- 0.119 ng/mL(MAY BE AT RISK OF AMI)AMI DIAGNOS TIC CUTOFF: >/= 0.120 ng/mL~~~~~~~~~~ ~~~~~~~~~~~~ ~~~~~~~~~~~~~~~ ~~~~~~~~~~~~ ~~~~~~~~~~The u se of serial sampling and te sting protocol is are commended practice.An kamila vated troponin level alone is often not suffi cient fordiagnosis of myocardial infarction. Tro ponin results obtaine d by different assay s may vary.Evaluation of the extent of myoca rdial damage based onincreas e of troponin would be valid only if similar methodology is used.~~~~~~~~~~ ~~~~~~~~~~~~ ~~~~~~~~~~~~~~~ ~~~~~~~~~~~~ ~~~~~~~~~~ A PO SITIVE BIAS MAY OCCUR FOR P ATIENTS TAKING BIOTIN SUPPLEMENTS~~~~ ~~~~~~~~~~~~ ~~~~~~~~~~~~~~~ ~~~~~~~~~~~~ ~~~~~~~~~~~~~~~ ~ BEDSIDE [id number] 20:21:00 Test Item Value Reference Range Interpretation Comments BEDSIDE CREATININE (test code = 1.3 mg/dL 0.66-1.25 H CREATBED) URINALYSIS [id number] 20:20:00 Test Item Value Reference Range Interpretation Comments UA COLOR (test code Yellow Yellow = COLU) UA APPEARANCE (test Clear Clear code = APPU) UA GLUCOSE DIPSTICK Negative Negative (test code = DGLUU) UA BILIRUBIN Negative Negative DIPSTICK (test code = BILU) UA KETONE DIPSTICK Trace mg/dL Negative A (test code = KETU) UA SPECIFIC GRAVITY 1.030 <1.030 (test code = SGU) UA BLOOD DIPSTICK 1+ Negative A (test code = CANDY) UA PH DIPSTICK (test 5.0 5.0-8.0 code = BOUCHRA) UA PROTEIN DIPSTICK NEGATIVE mg/dL Negative (test code = PROU) UA UROBILINOGEN Negative mg/dL Negative DIPSTICK (test code = URO) UA NITRITE DIPSTICK Negative Negative (test code = TERESSA) UA LEUKOCYTE NEGATIVE Negative ESTERASE DIPSTICK (test code = LEUU) UA WBC (test code = 0-3 /HPF See_Comment [Automa madhu WBCU) message] The sy stem which generated this result transmitted reference range : <4-5. The refer ence range was not u sed to interpret th is result as normal/abnormal . UA RBC (test code = 0-3 /HPF See_Comment [Automa madhu RBCU) message] The sy stem which generated this result transmitted reference range : <4-5. The refer ence range was not u sed to interpret th is result as normal/abnormal . UA BACTERIA (test None /HPF None-Rare code = BACU) UA HYALINE CAST 0-3 /LPF See_Comment [Automated (test code = HYALU) message] The system which generated this result transmitted reference range : <4-5. The refer ence range was not u sed to interpret th is result as normal/abnormal . UA MUCUS (test code 1+ /LPF See_Comment A [Automa madhu = MUCU) message] The sy stem which generated this result transmitted reference range : <Rare. The reference range was not used to interpret this result as normal/abnormal . CBC W/AUTO [id number] 19:48:00 Test Item Value Reference Range Interpretation Comments WHITE BLOOD CELL (test code = 6.6 x10 3/uL 5.0-12.0 N WBC) RED BLOOD CELL (test code = 4.91 x10 6/uL 4.70-6.10 N RBC) HEMOGLOBIN (test code = HGB) 11.4 g/dL 14.0-18.0 L HEMATOCRIT (test code = HCT) 37.2 % 37.0-49.0 N MEAN CELL VOLUME (test code = 76 fL 80-94 L MCV) MEAN CELL HGB (test code = MCH) 23.2 pg 27-31 L MEAN CELL HGB CONCENTRATION 30.6 g/dL 33-37 L (test code = MCHC) RED CELL DISTRIBUTION WIDTH 15.8 % 11.5-15.5 H (test code = RDW) PLATELET COUNT (test code = 277 x10 3/uL 130-400 N PLT) MEAN PLATELET VOLUME (test code 10.4 fL 9.4-16.4 N = MPV) NEUTROPHIL % (test code = NT%) 75.5 % 43-65 H IMMATURE GRANULOCYTE % (test 0.2 % 0.0-2.0 N code = IG%) LYMPHOCYTE % (test code = LY%) 15.2 % 20.5-45.5 L MONOCYTE % (test code = MO%) 7.5 % 5.5-11.7 N EOSINOPHIL % (test code = EO%) 1.1 % 0.9-2.9 N BASOPHIL % (test code = BA%) 0.5 % 0.2-1.0 N NUCLEATED RBC % (test code = 0.0 % 0-1.0 N NRBC%) NEUTROPHIL # (test code = NT#) 4.97 x10 3/uL 2.2-4.8 H IMMATURE GRANULOCYTE # (test 0.01 x10 3/uL 0-0.03 N code = IG#) LYMPHOCYTE # (test code = LY#) 1.00 x10 3/uL 1.3-2.9 L MONOCYTE # (test code = MO#) 0.49 x10 3/uL 0.3-0.8 N EOSINOPHIL # (test code = EO#) 0.07 x10 3/uL 0.0-0.2 N BASOPHIL # (test code = BA#) 0.03 x10 3/uL 0.0-0.1 N COMPREHENSIVE METABOLIC [id number] 06:18:00 Test Item Value Reference Range Interpretation Comments SODIUM (test code = 137 mmol/L 137-145 N NA) POTASSIUM (test 3.7 mmol/L 3.4-5.0 N code = K) CHLORIDE (test code 105 mmol/L 98-107 N = CL) CARBON DIOXIDE 27 mmol/L 22-30 N (test code = CO2) ANION GAP (test 9 code = GAP) GLUCOSE (test code 105 mg/dL 74-106 N = GLU) BLOOD UREA NITROGEN 10 mg/dL 9-20 N (test code = BUN) GLOMERULAR 103 >60 The estimated FILTRATION RATE glomerular f iltration (test code = GFR) rate is co mputed usingpatient ra ce, age (>18), sex, and serum creatinine. If anyof the needed data elements are mi ssing the Laboratory cannot compute an bobby mation of the glomerul ar filtration rate . CREATININE (test 1.0 mg/dL 0.7-1.3 N code = CREAT) TOTAL PROTEIN (test 6.5 g/dL 6.3-8.2 N code = PROT) " A positive bias m ay occur for patients ta janessa Eltrombopag(a b one marrow stimulan t used to treat thrombocytopeni a andaplastic anemia)." ALBUMIN (test code 3.8 g/dL 3.5-5.0 N = ALB) CALCIUM (test code 8.6 mg/dL 8.4-10.2 N = CA) BILIRUBIN TOTAL 0.6 mg/dL 0.2-1.3 N "A positive bias may (test code = BILT) occur for patients taking Eltrombo pag(a bone marrow sti mulant used to treat thrombocytopeni a andaplastic ane zhang)." BILIRUBIN 0 mg/dL 0-0.3 N "A positive roxy s may CONJUGATED (test occur for p atients code = BILCON) taking Eltrom bopag(a bone marrow sti mulant used to treat thrombocytopeni a andaplastic ane zhang)." C ONJUGATE D BILIRUBIN IS THE REPLACEMENT ASS AY FOR DIRECTBILIRUBIN . BILIRUBIN 0.5 mg/dL 0-1.1 N UNCONJUGATED (test code = BILUNC) SGOT/AST (test code 56 U/L 15-46 H = AST) SGPT/ALT (test code 41 U/L 0-49 N = ALT) ALKALINE 61 U/L 38-126 N PHOSPHATASE (test code = ALKP) INDEX HEMOLYSIS < 15 0-100 N (test code = Index/DL HEMINDEX) [id number] 06:18:00 Test Item Value Reference Range Interpretation Comments PHOSPHOROUS (test code = PHOS) 3.1 mg/dL 2.5-4.5 N [id number] 06:18:00 Test Item Value Reference Range Interpretation Comments MAGNESIUM (test code = MAG) 2.2 mg/dL 1.6-2.3 N CBC W/AUTO [id number] 05:38:00 Test Item Value Reference Range Interpretation Comments WHITE BLOOD CELL (test code = 5.1 x10 3/uL 5.0-12.0 N WBC) RED BLOOD CELL (test code = 3.73 x10 6/uL 4.70-6.10 L RBC) HEMOGLOBIN (test code = HGB) 9.2 g/dL 14.0-18.0 L HEMATOCRIT (test code = HCT) 29.7 % 37.0-49.0 L MEAN CELL VOLUME (test code = 80 fL 80-94 N MCV) MEAN CELL HGB (test code = MCH) 24.7 pg 27-31 L MEAN CELL HGB CONCENTRATION 31.0 g/dL 33-37 L (test code = MCHC) RED CELL DISTRIBUTION WIDTH 15.0 % 11.5-15.5 N (test code = RDW) PLATELET COUNT (test code = 202 x10 3/uL 130-400 N PLT) MEAN PLATELET VOLUME (test code 10.8 fL 9.4-16.4 N = MPV) NEUTROPHIL % (test code = NT%) 71.3 % 43-65 H IMMATURE GRANULOCYTE % (test 0.4 % 0.0-2.0 N code = IG%) LYMPHOCYTE % (test code = LY%) 18.4 % 20.5-45.5 L MONOCYTE % (test code = MO%) 6.9 % 5.5-11.7 N EOSINOPHIL % (test code = EO%) 2.4 % 0.9-2.9 N BASOPHIL % (test code = BA%) 0.6 % 0.2-1.0 N NUCLEATED RBC % (test code = 0.0 % 0-1.0 N NRBC%) NEUTROPHIL # (test code = NT#) 3.60 x10 3/uL 2.2-4.8 N IMMATURE GRANULOCYTE # (test 0.02 x10 3/uL 0-0.03 N code = IG#) LYMPHOCYTE # (test code = LY#) 0.93 x10 3/uL 1.3-2.9 L MONOCYTE # (test code = MO#) 0.35 x10 3/uL 0.3-0.8 N EOSINOPHIL # (test code = EO#) 0.12 x10 3/uL 0.0-0.2 N BASOPHIL # (test code = BA#) 0.03 x10 3/uL 0.0-0.1 N LIPID PROFILE (CORONARY RISK)2022-07-09 15:57:00 Test Item Value Reference Range Interpretation Comments TRIGLYCERIDES (test 463 mg/dL TRIGLYCE RIDES code = TRIG) REFERENCE RANGE:Normal: < 150 mg/dLBorderline High: 150-199 mg/dLHi gh: 200-499 mg/dLVe ry High: >=500 mg/ dL CHOLESTEROL (test 189 mg/dL CHOLESTERO L REFERENCE code = CHOL) RANGE:DESIRABLE : < 200 mg/dLBORDER LINE: 200-239 mg/dLHI GH: >=240 mg/dL HDL CHOLESTEROL (test 40 mg/dL 40-59 N code = HDL) LIPOPROTEIN LDL (test 73.29 mg/dL 32-99 N code = LDLC) CORONARY RISK FACTOR 4.73 CHOL/H DL RISK MALE: (test code = RISK) 1/2 AVG 3 .43 FEMALE: 1/2 AVG 3.27 A VG 4.97 AVG 4.44 2 X AVG 9.55 2X AVG 7.0 5 3X AVG 23.39 3X AV G 11.04~~~~~~~~~~ ~~~~~~ ~~~~~~~~~~~~~~~ ~~~~~~ ~~~~~~~~~~~~~~~ ~~~~~~ ~~National Cholesterol Edu cation (NCEP) Guidelines:~~~~ ~~~~~~ ~~~~~~~~~~~~~~~ ~~~~~~ ~~~~~~~~~~~~~~~ ~~~~~~ ~~~~~~~~ HDL Cholesterol<4 0mg/dL : HDL Cholester ol (Major risk fac tor for CHD)>60mg/d L: HDL Cholesterol (Ne gative risk factor for CHD)40-59mg/dL: Borderline Risk LDL Cholesterol<1 00mg/d L: Desirable LD L-C [id number] 0-159m g/dL: Borderlin e High Risk LDL-C [id number] 0-189m g/dL: High risk LDL-C concentration H DL-LDL Cholesterol is affected by a n umber of factors such as smoking, age an d sex.~~~~~~~~~~~ ~~~~~~ ~~~~~~~~~~~~~~~ ~~~~~~ ~~~~~~~~~~~~~~~ ~~~~~~ ~ - CT ABD PELVIS [id number] 09:22:00 [facility] 1975 Sex: M FAX: Giancarlo Cooper MD [place]: St: ADM Name: OLIVIA COOK [facility] : 1975 Age/S: 47/M [address] Unit: [id number] Loc: [place] [address] Phys: Giancarlo Do MD R2 Acct: [id number] Dis Date: Status: ADMIN PHONE #: [phone] Exam Date: 07/09/2022904 FAX #: [phone] Reason: abd pain RUQ epigastric EXAMS: CPT CODE: [id number] CT ABD PELVIS W/CONT 86954 CT abdomen and pelvis with IV contrast. Indication: Right upper quadrant epigastric pain. Location: [facility] Comparison: 08/01/2021 CT abdomen/pelvis. Technique: CT images of the abdomen and pelvis were obtained from the diaphragm to the pubic symphysis after the administration of intravenous contrast. Coronal and sagittal reformats are provided. One or more of the following dose reduction techniques were used: Automated exposure control, adjustment of the mA and/or kV according to patient size, and/or utilization of iterative reconstruction technique. Findings: Lungs bases: Unremarkable. Liver: There is a stable right hepatic lobe hemangioma. The liver demonstrates decreased attenuation as seen previously. There is a stable too small to characterize left hepatic lobe low-density, indeterminate although statistically benign. Gallbladder: There are no radiodense gallstones. The common bile duct is not dilated. Pancreas: There is mild peripancreatic stranding about the pancreatic head and uncinate process. There is no pancreatic ductal dilatation. Spleen: There is a stable 0.9 cm splenic hypodensity, likely benign. Adrenal glands: There is no adrenal mass. Kidneys: The kidneys enhance symmetrically without hydronephrosis or renal calculus. Bowel: There is no bowel obstruction. Small bowel surgeries demonstrate the left upper abdomen. The ap pendix is unremarkable. Peritoneum: There is no ascites or pneumoperitoneum. Pelvis: The urinary bladder appears smooth-walled. The prostate appears unremarkable. There are small bilateral fat-containing inguinal hernias, unchanged in size. Vascular: There is no abdominal aortic aneurysm. There are no significant arterial atherosclerotic calcifications. Skeletal: There is no acute fracture. Impression: Findings indicative of mild acute pancreatitis, recommend correlation PAGE 1 Signed Report (CONTINUED) FAX: Giancarlo Do MD [place]: St: ADM Name: OLIVIA COOK [facility] : 1975 Age/S: 47/M [address] Unit: [id number] Loc: [place] [address] Phys: Giancarlo Do MD R2 Acct: [id number] Dis Date: Status: ADM IN PHONE #: [phone] Exam Date: 07/09/2022904 FAX #: [phone] Reason: abd pain RUQ epigastric EXAMS: CPT CODE: [id number] CT ABD PELVIS W/CONT 75791 (Continued) with pancreatic enzymes. Stable right hepatic lobe hemangioma. Hepatic steatosis. Additional chronic findings as above. at 0922 Reported and signed by: Deandre Sanchez MD CC: Giancarlo Do MD Technologist: AMILCAR RUIZ JR Trnscrd Dt/Tm: 07/09/2022 (0922) [email or web address] Orig Print D/T: S: 07/09/2022 (0925 PAGE 2 Signed Report- US ABDOMEN [id number] 07:10:00 [facility] 1975 Sex: M [place]: St: REG -- Name: OLIVIA COOK [facility] : 1975 Age/S: 47/M [address] Unit #: [id number] Loc: [place] [address] Phys: Hansel Grant MD Acct: [id number] Dis Date: Status: REG ER PHONE #: [phone] Exam Date: 07/09/2022626 FAX #: [phone] Reason: ruq pain EXAMS: CPT CODE: [id number] US ABDOMEN LTD 05309 LOCATION: H19 Limited Abdominal Ultrasound History: Right upper quadrant pain Comparison: 06/02/2022 ultrasound exam. 08/01/2021, 04/09/2021 CT exams. Technique: Hogan scale and color Doppler imaging were utilized. Findings: The liver is measures 19.5 cm in length. The liver demonstrates increased echogenicity. There is an ill-defined heterogeneous area within the right hepatic lobe measuring 8.5 x 6.7 x 7.4 cm. The main portal vein is patent and demonstrates hepatopedal flow. The common bile duct measures 3.8 mm. The gallbladder is physiologically distended. There is no pericholecystic fluidor intraluminal gallstones. The gallbladder wall measures 1.5 mm. The right kidney measures 11.9 x 4.7 x 4.8 cm. The right kidney is without evidence of hydronephrosis or renal calculus. The pancreas is obscured overlying bowel gas. There is no evidence of ascites. Impression: No sonographic evidence of acute cholecystitis or cholelithiasis. Ill-defined right hepatic lobe area, this is compatible with a hemangioma seen on prior CT imaging. Hepatic steatosis. Hepatomegaly. The pancreas is poorly visualized on this study and inadequately evaluated. at 0710 Reported and signed by: Deandre Sanchez MD CC: Technologist: MIKE MOCK Trnscrd Date/Time/By: 07/09/2022 (0710) : By: [email or web address] PAGE 1 Signed Report [place]: St: REG Name: OLIVIA COOK [facility] : 1975 Age/S: 47/M [address] Unit #: [id number] Loc: [place] [address] Phys: Hansel Grant MD Acct: [id number] Dis Date: Status: REG ER PHONE #: [phone] Exam Date: 07/09/2022 0627FAX #: [phone] Reason: ruq pain EXAMS: CPT CODE: [id number] US ABDOMEN LTD 63143 (Continued) Orig Print D/T: S: 07/09/2022 (0713) PAGE 2 Signed ReportBASIC METABOLIC [id number] 06:15:00 Test Item Value Reference Range Interpretation Comments SODIUM (test code = 138 mmol/L 137-145 N NA) POTASSIUM (test 4.0 mmol/L 3.4-5.0 N code = K) CHLORIDE (test code 107 mmol/L 98-107 N = CL) CARBON DIOXIDE 24 mmol/L 22-30 N (test code = CO2) ANION GAP (test 12 code = GAP) GLUCOSE (test code 111 mg/dL 74-106 H = GLU) BLOOD UREA NITROGEN 16 mg/dL 9-20 N (test code = BUN) GLOMERULAR 92 >60 The estimated FILTRATION RATE glomerular f iltration (test code = GFR) rate is co mputed usingpatient ra ce, age (>18), sex, and serum creatinin e. If anyof the neede d data elements are mi ssing the Laboratory cannot compute an bobby mation of the glomerul ar filtration rate . CREATININE (test 1.1 mg/dL 0.7-1.3 N code = CREAT) CALCIUM (test code 9.2 mg/dL 8.4-10.2 N = CA) INDEX HEMOLYSIS < 15 Index/DL 0-100 N (test code = HEMINDEX) LIVER FUNCTION [id number] 06:15:00 Test Item Value Reference Range Interpretation Comments TOTAL PROTEIN (test 7.3 g/dL 6.3-8.2 N code = PROT) "A positive bias may occur for patients taking Eltrombopag(a b one marrow stimulan t used to treat thrombocy topenia andaplastic anemia)." ALBUMIN (test code = 4.3 g/dL 3.5-5.0 N ALB) BILIRUBIN TOTAL 0.6 mg/dL 0.2-1.3 N "A positive bias may (test code = BILT) occur for patients taking Eltrombo pag(a bone marrow sti mulant used to treat thrombocytopeni a andaplastic ane zhang)." BILIRUBIN CONJUGATED 0 mg/dL 0-0.3 N "A posi tive bias may (test code = BILCON) occur f or patients taking Eltrombo pag(a bone marrow sti mulant used to treat thrombocytopeni a andaplastic ane zhang)." CON JUGATED BILIRUBIN IS TH E REPLACEMENT ASS AY FOR DIRECTBILIRUBIN . BILIRUBIN 0.5 mg/dL 0-1.1 N UNCONJUGATED (test code = BILUNC) SGOT/AST (test code 43 U/L 15-46 N = AST) SGPT/ALT (test code 35 U/L 0-49 N = ALT) ALKALINE PHOSPHATASE 71 U/L 38-126 N (test code = ALKP) [id number] 06:15:00 Test Item Value Reference Range Interpretation Comments LIPASE (test code = LIP) 405 U/L 23-300 H CBC W/AUTO [id number] 05:41:00 Test Item Value Reference Range Interpretation Comments WHITE BLOOD CELL (test code = 4.8 x10 3/uL 5.0-12.0 L WBC) RED BLOOD CELL (test code = 4.35 x10 6/uL 4.70-6.10 L RBC) HEMOGLOBIN (test code = HGB) 10.6 g/dL 14.0-18.0 L HEMATOCRIT (test code = HCT) 33.5 % 37.0-49.0 L MEAN CELL VOLUME (test code = 77 fL 80-94 L MCV) MEAN CELL HGB (test code = MCH) 24.4 pg 27-31 L MEAN CELL HGB CONCENTRATION 31.6 g/dL 33-37 L (test code = MCHC) RED CELL DISTRIBUTION WIDTH 14.8 % 11.5-15.5 N (test code = RDW) PLATELET COUNT (test code = 246 x10 3/uL 130-400 N PLT) MEAN PLATELET VOLUME (test code 11.1 fL 9.4-16.4 N = MPV) NEUTROPHIL % (test code = NT%) 62.2 % 43-65 N IMMATURE GRANULOCYTE % (test 0.4 % 0.0-2.0 N code = IG%) LYMPHOCYTE % (test code = LY%) 27.3 % 20.5-45.5 N MONOCYTE % (test code = MO%) 6.8 % 5.5-11.7 N EOSINOPHIL % (test code = EO%) 2.5 % 0.9-2.9 N BASOPHIL % (test code = BA%) 0.8 % 0.2-1.0 N NUCLEATED RBC % (test code = 0.0 % 0-1.0 N NRBC%) NEUTROPHIL # (test code = NT#) 3.01 x10 3/uL 2.2-4.8 N IMMATURE GRANULOCYTE # (test 0.02 x10 3/uL 0-0.03 N code = IG#) LYMPHOCYTE # (test code = LY#) 1.32 x10 3/uL 1.3-2.9 N MONOCYTE # (test code = MO#) 0.33 x10 3/uL 0.3-0.8 N EOSINOPHIL # (test code = EO#) 0.12 x10 3/uL 0.0-0.2 N BASOPHIL # (test code = BA#) 0.04 x10 3/uL 0.0-0.1 N [id number] 17:34:00 Test Item Value Reference Range Interpretation Comments LIPASE (test code = LIP) 727 U/L 23-300 H LIPID PROFILE (CORONARY RISK)2022-06-02 05:11:00 Test Item Value Reference Range Interpretation Comments TRIGLYCERIDES (test 330 mg/dL TRIGLYCE RIDES code = TRIG) REFERENCE RANGE:Normal: < 150 mg/dLBorderline High: 150-199 mg/dLHigh: 200- 499 mg/dLVery High: >=500 mg/dL CHOLESTEROL (test 223 mg/dL CHOLESTERO L code = CHOL) REFERENCE RANGE:DESIRABLE : < 200 mg/dLBORDER LINE: 200-239 mg/dLHI GH: >=240 mg/dL HDL CHOLESTEROL (test 49 mg/dL 40-59 N code = HDL) LIPOPROTEIN LDL (test 119.57 mg/dL 32-99 H code = LDLC) CORONARY RISK FACTOR 4.55 CHOL/H DL RISK MALE: (test code = RISK) 1/2 AVG 3 .43 FEMALE: 1/2 AVG 3.27 AV G 4.97 AVG 4.44 2 X AVG 9.55 2X AVG 7.0 5 3X AVG 23.39 3X AV G 11.04~~~~~~~~~~ ~~~~~ ~~~~~~~~~~~~~~~ ~~~~~ ~~~~~~~~~~~~~~~ ~~~~~ ~~~~~National Cholesterol Education (NCEP ) Guidelines:~~~~ ~~~~~ ~~~~~~~~~~~~~~~ ~~~~~ ~~~~~~~~~~~~~~~ ~~~~~ ~~~~~~~~~~~ H DL Cholesterol<4 0mg/d L: HDL Choleste rol (Major risk fac tor for CHD)>60mg/d L: HDL Cholesterol (Negative risk factor for CHD)40-59mg/dL: Borderline Risk LDL Cholesterol<1 00mg/ dL: Desirable L DL-C [id number] 0-159 mg/dL: Borderli ne High Risk LDL-C 0-189 mg/dL: High ris k LDL-C concentra tion HDL-LDL Cholest pretty is affected by a number of facto rs suchas smoking, age and sex.~~~~~~~~~~~ ~~~~~ ~~~~~~~~~~~~~~~ ~~~~~ ~~~~~~~~~~~~~~~ ~~~~~ ~~~~ - US ABDOMEN [id number] 01:26:00 [facility] 1975 Sex: M [place]: St: REG -- Name: OLIVIA COOK [facility] [place] : 1975 Age/S: 47/M [address] Unit #: [id number] Loc: [place] [address] Phys: Hansel Saucedo Acct: [id number] Dis Date: Status: REG ER PHONE #: [phone] Date: 06/02/2022 0114 FAX #: [phone] Reason: ruq pain EXAMS: CPT CODE: [id number] ABDOMEN [facility] [address] LOCATION: 3 EXAM: ABDOMINAL ULTRASOUND-LIMITED HISTORY: ruq pain TECHNIQUE: Sonographic imaging of the right upper quadrant in the transverse and sagittal plane employing hogan scale and color imaging with Doppler and spectral analysis. COMPARISON: CT abdomen and pelvis 08/01/2021 FINDINGS: The liver is mildly enlarged measuring 19 cm in length. Hepatic parenchymal echogenicity is heterogeneously increased, compatible consistent with a diffuse hepatocellular infiltrative process, typically fatty infiltration of the liver. This hepatic parenchymal pattern can obscure subtle masses. Ill-defined mixed echogenicity mass measuring approximately 5.5 x 9.0 x 6.0 cm corresponds to a previously visualized right hepatic lobe lesion. The main portal vein demonstrates hepatopedal flow. The gallbladder is unremarkable. There is no gallbladder wall thickening or pericholecystic fluid. A sonographic Hardy's sign is not elicited per the performing life advisor. There is no biliary ductal dilatation. The common bile duct measures 4 mm, within normal limits. The pancreas is unremarkable where visualized. Portions of the head and tail are obscured by bowel gas. The right kidney is normal in size measuring 12.0 cm in length. Renal parenchymal echogenicity is within normal limits. No contour deforming masses on the submitted still images. There is no evidence of nephrolithiasis or hydronephrosis.The abdominal aorta is normal in size where visualized. The IVC is visualized as it enters the liver. IMPRESSION: 1. Unremarkable sonographic appearance of the gallbladder. No evidence of cholelithiasis or findings to indicate acute cholecystitis. 2. Mild hepatomegaly and findings consistent with hepatic steatosis. PAGE 1 Signed Report (CONTINUED) [place]: St: REG Name: OLIVIA COOK [facility] : 1975 Age/S: 47/M [address] Unit #: [id number] Loc: [place] [address] Phys: Hansel Saucedo Acct: [id number] Dis Date: Status: REG ER PHONE #: [phone] Exam Date: 06/02/2022 0114 FAX #: [phone] Reason: ruq pain EXAMS: CPT CODE: [id number] ABDOMEN LTD 20158 (Continued) Ill-defined right hepatic lobe mass corresponding to a previously identified lesion previously characterized as a hemangioma. at 0126 Reported and signed by: Genoveva Luna MD CC: Technologist: AICHA SHAW Trnscrd Date/Time/By: 06/02/2022 (0126) : By: [email or web address] PAGE 2 Signed Report [place]: St: REG Name: OLIVIA COOK : 1975 Age/S: 47/M [address] Unit #: [id number] Loc: [place] [address] Phys: Hansel Saucedo SALONI Acct: [id number] Dis Date: Status:REG ER PHONE #: [phone] Exam Date: 06/02/2022113 FAX #: [phone] Reason: ruq pain EXAMS:CPT CODE: [id number] US ABDOMEN LTD 14184 (Continued) Orig Print D/T: S: 06/02/2022 (0129) PAGE 3 Signed ReportCOMPREHENSIVE METABOLIC [id number] 00:31:00 Test Item Value Reference Range Interpretation Comments SODIUM (test code = 138 mmol/L 137-145 N NA) POTASSIUM (test 4.0 mmol/L 3.4-5.0 N code = K) CHLORIDE (test code 109 mmol/L 98-107 H = CL) CARBON DIOXIDE 23 mmol/L 22-30 N (test code = CO2) ANION GAP (test 11 code = GAP) GLUCOSE (test code 105 mg/dL 74-106 N = GLU) BLOOD UREA NITROGEN 16 mg/dL 9-20 N (test code = BUN) GLOMERULAR 92 >60 The estimated FILTRATION RATE glomerular f iltration (test code = GFR) rate is co mputed usingpatient ra ce, age (>18), sex, and serum creatinine. If anyof the needed data elements are mi ssing the Laboratory cannot compute an bobby mation of the glomerul ar filtration rate . CREATININE (test 1.1 mg/dL 0.7-1.3 N code = CREAT) TOTAL PROTEIN (test 7.2 g/dL 6.3-8.2 N code = PROT) " A positive bias m ay occur for patients ta janessa Eltrombopag(a b one marrow stimulan t used to treat thrombocytopeni a andaplastic anemia)." ALBUMIN (test code 3.9 g/dL 3.5-5.0 N = ALB) CALCIUM (test code 9.0 mg/dL 8.4-10.2 N = CA) BILIRUBIN TOTAL 1.0 mg/dL 0.2-1.3 N "A positive bias may (test code = BILT) occur for patients taking Eltrombo pag(a bone marrow sti mulant used to treat thrombocytopeni a andaplastic ane zhang)." BILIRUBIN 0 mg/dL 0-0.3 N "A positive roxy s may CONJUGATED (test occur for p atients code = BILCON) taking Eltrom bopag(a bone marrow sti mulant used to treat thrombocytopeni a andaplastic ane zhang)." C ONJUGATE D BILIRUBIN IS THE REPLACEMENT ASS AY FOR DIRECTBILIRUBIN . BILIRUBIN 0.5 mg/dL 0-1.1 N UNCONJUGATED (test code = BILUNC) SGOT/AST (test code 74 U/L 15-46 H = AST) SGPT/ALT (test code 50 U/L 0-49 H = ALT) ALKALINE 73 U/L 38-126 N PHOSPHATASE (test code = ALKP) INDEX HEMOLYSIS < 15 0-100 N (test code = Index/DL HEMINDEX) [id number] 00:31:00 Test Item Value Reference Range Interpretation Comments LIPASE (test code = LIP) 491 U/L 23-300 H [id number] 00:31:00 Test Item Value Reference Range Interpretation Comments TROPONIN-I < 0.012 ng/mL 0.012-0.033 L (test code = TROPI) Please be advised of the updated ref erence ranges for the new Chemistry instrumentation . VITROS TROPO DONYA I CRITERIANORM AL PATIENT W/O CIRCULATING TNI: 0.012-0.033 ng/mLCIRCULATIN G TNI PRESENT: 0.034- 0.119 ng/mL(MAY BE AT RISK OF AMI)AMI DIAGNOS TIC CUTOFF: >/= 0.120 ng/mL~~~~~~~~~~ ~~~~~~~~~~~~ ~~~~~~~~~~~~~~~ ~~~~~~~~~~~~ ~~~~~~~~~~The u se of serial sampling and te sting protocol is are commended practice.An kamila vated troponin level alone is often not suffi cient fordiagnosis of myocardial infarction. Tro ponin results obtaine d by different assay s may vary.Evaluation of the extent of myoca rdial damage based onincreas e of troponin would be valid only if similar methodology is used.~~~~~~~~~~ ~~~~~~~~~~~~ ~~~~~~~~~~~~~~~ ~~~~~~~~~~~~ ~~~~~~~~~~ A PO SITIVE BIAS MAY OCCUR FOR P ATIENTS TAKING BIOTIN SUPPLEMENTS~~~~ ~~~~~~~~~~~~ ~~~~~~~~~~~~~~~ ~~~~~~~~~~~~ ~~~~~~~~~~~~~~~ ~ CBC W/AUTO [id number] 23:41:00 Test Item Value Reference Range Interpretation Comments WHITE BLOOD CELL (test code = 4.4 x10 3/uL 5.0-12.0 L WBC) RED BLOOD CELL (test code = 4.09 x10 6/uL 4.70-6.10 L RBC) HEMOGLOBIN (test code = HGB) 10.1 g/dL 14.0-18.0 L HEMATOCRIT (test code = HCT) 32.1 % 37.0-49.0 L MEAN CELL VOLUME (test code = 79 fL 80-94 L MCV) MEAN CELL HGB (test code = MCH) 24.7 pg 27-31 L MEAN CELL HGB CONCENTRATION 31.5 g/dL 33-37 L (test code = MCHC) RED CELL DISTRIBUTION WIDTH 15.2 % 11.5-15.5 N (test code = RDW) PLATELET COUNT (test code = 195 x10 3/uL 130-400 N PLT) MEAN PLATELET VOLUME (test code 10.3 fL 9.4-16.4 N = MPV) NEUTROPHIL % (test code = NT%) 63.7 % 43-65 N IMMATURE GRANULOCYTE % (test 0.2 % 0.0-2.0 N code = IG%) LYMPHOCYTE % (test code = LY%) 24.9 % 20.5-45.5 N MONOCYTE % (test code = MO%) 8.2 % 5.5-11.7 N EOSINOPHIL % (test code = EO%) 2.3 % 0.9-2.9 N BASOPHIL % (test code = BA%) 0.7 % 0.2-1.0 N NUCLEATED RBC % (test code = 0.0 % 0-1.0 N NRBC%) NEUTROPHIL # (test code = NT#) 2.81 x10 3/uL 2.2-4.8 N IMMATURE GRANULOCYTE # (test 0.01 x10 3/uL 0-0.03 N code = IG#) LYMPHOCYTE # (test code = LY#) 1.10 x10 3/uL 1.3-2.9 L MONOCYTE # (test code = MO#) 0.36 x10 3/uL 0.3-0.8 N EOSINOPHIL # (test code = EO#) 0.10 x10 3/uL 0.0-0.2 N BASOPHIL # (test code = BA#) 0.03 x10 3/uL 0.0-0.1 N BASIC METABOLIC [id number] 07:22:00 Test Item Value Reference Range Interpretation Comments SODIUM (test code = 136 mmol/L 137-145 L NA) POTASSIUM (test code 4.3 mmol/L 3.4-5.0 N = K) CHLORIDE (test code = 104 mmol/L 98-107 N CL) CARBON DIOXIDE (test 25 mmol/L 22-30 N code = CO2) GLUCOSE (test code = 103 mg/dL 74-106 N GLU) BLOOD UREA NITROGEN 11 mg/dL 9-20 N (test code = BUN) GLOMERULAR FILTRATION 93 >60 The es timated RATE (test code = glomerular filtration GFR) rate is compute d usingpatient ra ce, age (>18), sex, and serum creatinine. If anyof the needed data elements are mi ssing the Laboratory cannot compute an bobby mation of the glomerul ar filtration rate . CREATININE (test code 1.1 mg/dL 0.7-1.3 N = CREAT) CALCIUM (test code = 8.7 mg/dL 8.4-10.2 N CA) CBC W/AUTO [id number] 06:06:00 Test Item Value Reference Range Interpretation Comments WHITE BLOOD CELL (test code = 3.3 x10 3/uL 5.0-12.0 L WBC) RED BLOOD CELL (test code = 3.96 x10 6/uL 4.70-6.10 L RBC) HEMOGLOBIN (test code = HGB) 11.0 g/dL 14.0-18.0 L HEMATOCRIT (test code = HCT) 33.3 % 37.0-49.0 L MEAN CELL VOLUME (test code = 84 fL 80-94 N MCV) MEAN CELL HGB (test code = MCH) 27.8 pg 27-31 N MEAN CELL HGB CONCENTRATION 33.0 g/dL 33-37 N (test code = MCHC) RED CELL DISTRIBUTION WIDTH 13.2 % 11.5-15.5 N (test code = RDW) PLATELET COUNT (test code = 156 x10 3/uL 130-400 N PLT) MEAN PLATELET VOLUME (test code 11.1 fL 9.4-16.4 N = MPV) NEUTROPHIL % (test code = NT%) 52.8 % 43-65 N IMMATURE GRANULOCYTE % (test 0.0 % 0.0-2.0 N code = IG%) LYMPHOCYTE % (test code = LY%) 34.0 % 20.5-45.5 N MONOCYTE % (test code = MO%) 9.8 % 5.5-11.7 N EOSINOPHIL % (test code = EO%) 2.8 % 0.9-2.9 N BASOPHIL % (test code = BA%) 0.6 % 0.2-1.0 N NUCLEATED RBC % (test code = 0.0 % 0-1.0 N NRBC%) NEUTROPHIL # (test code = NT#) 1.72 x10 3/uL 2.2-4.8 L IMMATURE GRANULOCYTE # (test 0.00 x10 3/uL 0-0.03 N code = IG#) LYMPHOCYTE # (test code = LY#) 1.11 x10 3/uL 1.3-2.9 L MONOCYTE # (test code = MO#) 0.32 x10 3/uL 0.3-0.8 N EOSINOPHIL # (test code = EO#) 0.09 x10 3/uL 0.0-0.2 N BASOPHIL # (test code = BA#) 0.02 x10 3/uL 0.0-0.1 N LIPID PROFILE (CORONARY RISK)2021-08-01 18:26:00 Test Item Value Reference Range Interpretation Comments TRIGLYCERIDES (test 568 mg/dL TRIGLYCE RIDES code = TRIG) REFERENCE RANGE:Normal: < 150 mg/dLBorderline High: 150-199 mg/dLHi gh: 200-499 mg/dLVe ry High: >=500 mg/ dL CHOLESTEROL (test 227 mg/dL CHOLESTERO L REFERENCE code = CHOL) RANGE:DESIRABLE : < 200 mg/dLBORDER LINE: 200-239 mg/dLHI GH: >=240 mg/dL HDL CHOLESTEROL (test 50 mg/dL 40-59 N code = HDL) LIPOPROTEIN LDL (test 72.41 mg/dL 32-99 N code = LDLC) CORONARY RISK FACTOR 4.54 CHOL/H DL RISK MALE: (test code = RISK) 1/2 AVG 3 .43 FEMALE: 1/2 AVG 3.27 AV G 4.97 AVG 4.44 2X AVG 9.55 2X AVG 7.05 3X AVG 23.39 3X AVG 11.04~~~~~~~~~~ ~~~~~~ ~~~~~~~~~~~~~~~ ~~~~~~ ~~~~~~~~~~~~~~~ ~~~~~~ ~~National Cholesterol Edu cation (NCEP) Guidelines:~~~~ ~~~~~~ ~~~~~~~~~~~~~~~ ~~~~~~ ~~~~~~~~~~~~~~~ ~~~~~~ ~~~~~~~~ HDL Cholesterol<4 0mg/dL : HDL Cholester ol (Major risk fac tor for CHD)>60mg/d L: HDL Cholesterol (Ne gative risk factor for CHD)40-59mg/dL: Borderline Risk LDL Cholesterol<1 00mg/d L: Desirable LD L-C [id number] 0-159m g/dL: Borderlin e High Risk LDL-C [id number] 0-189m g/dL: High risk LDL-C concentration H DL-LDL Cholesterol is affected by a n umber of factors such as smoking, age an d sex.~~~~~~~~~~~ ~~~~~~ ~~~~~~~~~~~~~~~ ~~~~~~ ~~~~~~~~~~~~~~~ ~~~~~~ ~ URINALYSIS [id number] 14:22:00 Test Item Value Reference Range Interpretation Comments UA COLOR (test code Straw Yellow = COLU) UA APPEARANCE (test Clear Clear code = APPU) UA GLUCOSE DIPSTICK Negative Negative (test code = DGLUU) UA BILIRUBIN Negative Negative DIPSTICK (test code = BILU) UA KETONE DIPSTICK Negative mg/dL Negative (test code = KETU) UA SPECIFIC GRAVITY 1.055 <1.030 A (test code = SGU) UA BLOOD DIPSTICK Negative Negative (test code = CANDY) UA PH DIPSTICK (test 5.0 5.0-8.0 code = BOUCHRA) UA PROTEIN DIPSTICK NEGATIVE mg/dL Negative (test code = PROU) UA UROBILINOGEN Negative mg/dL Negative DIPSTICK (test code = URO) UA NITRITE DIPSTICK Negative Negative (test code = TERESSA) UA LEUKOCYTE NEGATIVE Negative ESTERASE DIPSTICK (test code = LEUU) UA WBC (test code = 0-3 /HPF See_Comment [Automa madhu WBCU) message] The sy stem which generated this result transmitted reference range : <4-5. The refer ence range was not u sed to interpret th is result as normal/abnormal . UA RBC (test code = 0-3 /HPF See_Comment [Automa madhu RBCU) message] The sy stem which generated this result transmitted reference range : <4-5. The refer ence range was not u sed to interpret th is result as normal/abnormal . UA BACTERIA (test None /HPF None-Rare code = BACU) UA MUCUS (test code Rare /LPF See_Comment [Automa madhu = MUCU) message] The sy stem which generated this result transmitted reference range : <Rare. The reference range was not used to interpret this result as normal/abnormal . COMPREHENSIVE METABOLIC [id number] 13:45:00 Test Item Value Reference Range Interpretation Comments SODIUM (test code = 140 mmol/L 137-145 N NA) POTASSIUM (test code 4.2 mmol/L 3.4-5.0 N = K) CHLORIDE (test code 104 mmol/L 98-107 N = CL) CARBON DIOXIDE (test 25 mmol/L 22-30 N code = CO2) GLUCOSE (test code = 114 mg/dL 74-106 H GLU) BLOOD UREA NITROGEN 16 mg/dL 9-20 N (test code = BUN) GLOMERULAR 93 >60 The estimated FILTRATION RATE glomerular f iltration (test code = GFR) rate is co mputed usingpatient ra ce, age (>18), sex, and serum creatinine. If anyof the needed data elements are mi ssing the Laboratory cannot compute an bobby mation of the glomerul ar filtration rate . CREATININE (test 1.1 mg/dL 0.7-1.3 N code = CREAT) TOTAL PROTEIN (test 7.5 g/dL 6.3-8.2 N code = PROT) " A positive bias m ay occur for patients ta janessa Eltrombopag(a b one marrow stimulan t used to treat thrombocytopeni a andaplastic anemia)." ALBUMIN (test code = 4.3 g/dL 3.5-5.0 N ALB) CALCIUM (test code = 9.3 mg/dL 8.4-10.2 N CA) BILIRUBIN TOTAL 0.7 mg/dL 0.2-1.3 N "A positive bias may (test code = BILT) occur for patients taking Eltrombo pag(a bone marrow sti mulant used to treat thrombocytopeni a andaplastic ane zhang)." BILIRUBIN CONJUGATED 0 mg/dL 0-0.3 N "A posi tive bias may (test code = BILCON) occur f or patients taking Eltrombo pag(a bone marrow sti mulant used to treat thrombocytopeni a andaplastic ane zhang)." C ONJUGATE D BILIRUBIN IS THE REPLACEMENT ASS AY FOR DIRECTBILIRUBIN . BILIRUBIN 0.5 mg/dL 0-1.1 N UNCONJUGATED (test code = BILUNC) SGOT/AST (test code 35 U/L 15-46 N = AST) SGPT/ALT (test code 34 U/L 0-34 N = ALT) ALKALINE PHOSPHATASE 75 U/L 38-126 N (test code = ALKP) [id number] 13:45:00 Test Item Value Reference Range Interpretation Comments LIPASE (test code = > 4000 U/L 23-300 H ~~~~~~~~ ~~~~~~~~~~~~~~ LIP) ~~~~~~~~~~~~~~~ ~~~~~~~ ~~~~~~~~~~~~~Re ported result verified with auto diltuion procedure.~~~~~ ~~~~~~~ ~~~~~~~~~~~~~~~ ~~~~~~~ ~~~~~~~~~~~~~~~ ~~~~~~~ ~ CBC W/AUTO [id number] 12:44:00 Test Item Value Reference Range Interpretation Comments WHITE BLOOD CELL (test code = 4.8 x10 3/uL 5.0-12.0 L WBC) RED BLOOD CELL (test code = 4.75 x10 6/uL 4.70-6.10 N RBC) HEMOGLOBIN (test code = HGB) 13.2 g/dL 14.0-18.0 L HEMATOCRIT (test code = HCT) 39.3 % 37.0-49.0 N MEAN CELL VOLUME (test code = 83 fL 80-94 N MCV) MEAN CELL HGB (test code = MCH) 27.8 pg 27-31 N MEAN CELL HGB CONCENTRATION 33.6 g/dL 33-37 N (test code = MCHC) RED CELL DISTRIBUTION WIDTH 13.2 % 11.5-15.5 N (test code = RDW) PLATELET COUNT (test code = 206 x10 3/uL 130-400 N PLT) MEAN PLATELET VOLUME (test code 10.9 fL 9.4-16.4 N = MPV) NEUTROPHIL % (test code = NT%) 63.3 % 43-65 N IMMATURE GRANULOCYTE % (test 0.2 % 0.0-2.0 N code = IG%) LYMPHOCYTE % (test code = LY%) 25.3 % 20.5-45.5 N MONOCYTE % (test code = MO%) 9.5 % 5.5-11.7 N EOSINOPHIL % (test code = EO%) 1.3 % 0.9-2.9 N BASOPHIL % (test code = BA%) 0.4 % 0.2-1.0 N NUCLEATED RBC % (test code = 0.0 % 0-1.0 N NRBC%) NEUTROPHIL # (test code = NT#) 3.01 x10 3/uL 2.2-4.8 N IMMATURE GRANULOCYTE # (test 0.01 x10 3/uL 0-0.03 N code = IG#) LYMPHOCYTE # (test code = LY#) 1.20 x10 3/uL 1.3-2.9 L MONOCYTE # (test code = MO#) 0.45 x10 3/uL 0.3-0.8 N EOSINOPHIL # (test code = EO#) 0.06 x10 3/uL 0.0-0.2 N BASOPHIL # (test code = BA#) 0.02 x10 3/uL 0.0-0.1 N - CT ABD PELVIS [id number] 12:34:00 [facility] 1975 Sex: M [place]: St: PRE -- Name: OLIVIA COOK [facility] : 1975 Age/S: 46/M [address] Unit: [id number] Loc: [place] [address] Phys: Hansel Saucedo NP Acct: [id number] Dis Date: Status: PRE ER PHONE #: [phone] Exam Date: 08/01/2021 1230 FAX #: [phone] Reason: epigastric and luq pain EXAMS: CPT CODE: [id number] CT ABD PELVIS W/CONT [id number] EXAMINATION: - CT ABD PELVIS W/CONT COMPARISON: CT scan performed May 06, 2021 HISTORY: Epigastric and left upper quadrant pain LOCATION CODE: C3 TECHNIQUE: CT of the Abdomen and Pelvis with intravenous contrast. Oral contrast was not administered. Axial contrast enhanced images of the abdomen and pelvis were obtained and reviewed in soft tissue, bone and lung windows. Coronal and sagittal reconstructed images were also provided for review. All CT scans are performed using dose optimization techniques as appropriate to a performed exam including one or more of the following: ?Automated exposure control ?Adjustment of the mA and/or kV according to patient size ?Use of iterative reconstruction technique FINDINGS ABDOMEN: 3 fatty change is present in the liver. Prominent hemangioma in the posterior right lobe the liver measuring approximate 8.9 cm is unchanged. Areas of focal fatty sparing around the gallbladder fossa and a tiny cyst in the lateral left lobe are also stable. Gallbladder and biliary tree, adrenal glands and kidneys are normal. A 9 mm cyst in the superior aspect of the spleen is unchanged. The spleen is otherwise normal. There is diffuse peripancreatic stranding seen on today's study, more extensive when compared to the prior examination, compatible withunderlying pancreatitis. Pancreatic parenchyma enhances normally. There is no free air, free fluid or lymphadenopathy. The vessels are normal. Postsurgical changes in loops of bowel in the left abdomenare stable. Lung bases are clear. Degenerative disc changes are noted in the spine. FINDINGS PELVIS:Urinary bladder, prostate and seminal vesicles are normal. There is no free air, free fluid or lymphadenopathy. The bowel, vessels and bones are unremarkable. PAGE 1 Signed Report (CONTINUED) [place]: St: PRE -- Name: OLIVIA OCOK [facility] : 1975 Age/S: 46/M [address] Unit: [id number] Loc: [place] [address] Phys: Hansel Saucedo [employer] Acct: [id number] Dis Date: Status: PRE ER PHONE #: [phone] Exam Date: 08/01/2021 1230 FAX #: [phone] Reason: epigastric and luq pain EXAMS: CPT CODE: [id number] CT ABD PELVIS W/CONT [id number] (Continued) IMPRESSION: Findings compatible with underlying pancreatitis. Inflammatory changes around the pancreas are more extensive when compared to the prior study. The pancreatic parenchyma enhances normally Stable hemangioma and fatty change in the liver ElectronicallySigned by Leeann Cook MD on 08/01/2021 at 1234 Reported and signed by: Leeann Cook MD CC: Technologist: JULIAN HARDY, RT(R,CT) Trnscrd Dt/Tm: 08/01/2021 (5344) t.FRANCISCO [email or web address] Orig Print D/T: S: 08/01/2021 (0338 PAGE 2 Signed ReportBEDSIDE [id number] 12:29:00 Test Item Value Reference Range Interpretation Comments BEDSIDE CREATININE (test code = 1.2 MG/DL 0.5-1.0 H CREATBED) - XR CHEST 1 [id number] 11:33:00 [facility] : 1975 Sex: M [place]: [place] St: PRE -- Name: OLIVIA COOK [place] : 1975 Age/S: 46/M [address] Unit #: [id number] Loc: [place] [address] Phys: Hansel Saucedo [employer]EL[employer] Acct: [id number] Dis Date: Status: PRE ER PHONE #: [phone] Exam Date: 08/01/20211121 FAX #: [phone] Reason: epigastric and luq pain EXAMS: CPT CODE: [id number] XR CHEST 1 V 11090 EXAM: - XR CHEST 1 V INDICATION: epigastric and luq pain T18 TECHNIQUE: Frontal view of the chest. FINDINGS: Lungs appear clear. Cardiomediastinal silhouette and osseous structures appear unremarkable. No pleural effusion appreciated mild elevation of left hemidiaphragm, unchanged since 05/06/2021. IMPRESSION: No acute cardiopulmonary process seen. Mild elevation of the left hemidiaphragm. at 1133 Reported and signed by:Clifford Troy MD CC: Technologist: JACI SILVA [facility] Date/Time/By: 08/01/2021 (1133) : By: [email or web address] PAGE 1 Signed Report [place]: St: PRE Name: [place]IVIA [place] : 1975 Age/S: 46/M [address] Unit #: [id number] Loc: [place] [address] Phys: Hansel Saucedo [employer] DEVEL[employer] Acct: [id number] Dis Date: Status: PRE ER PHONE #: [phone] Exam Date: 08/01/20211121 FAX #: [phone] Reason: epigastric and luq pain EXAMS: CPT CODE: [id number] XR CHEST 1 V 31741 (Continued) Orig Print D/T: S: 08/01/2021 (1136) PAGE 2 Signed ReportCOMPREHENSIVE METABOLIC [id number] 05:47:00 Test Item Value Reference Range Interpretation Comments SODIUM (test code = 141 mmol/L 137-145 N NA) POTASSIUM (test code 3.6 mmol/L 3.4-5.0 N = K) CHLORIDE (test code 103 mmol/L 98-107 N = CL) CARBON DIOXIDE (test 28 mmol/L 22-30 N code = CO2) GLUCOSE (test code = 84 mg/dL 74-106 N GLU) BLOOD UREA NITROGEN 9 mg/dL 9-20 N (test code = BUN) GLOMERULAR 104 >60 The estimated FILTRATION RATE glomerular f iltration (test code = GFR) rate is co mputed usingpatient ra ce, age (>18), sex, and serum creatinine. If anyof the needed data elements are mi ssing the Laboratory cannot compute an bobby mation of the glomerul ar filtration rate . CREATININE (test 1.0 mg/dL 0.7-1.3 N code = CREAT) TOTAL PROTEIN (test 7.0 g/dL 6.3-8.2 N code = PROT) " A positive bias m ay occur for patients ta janessa Eltrombopag(a b one marrow stimulan t used to treat thrombocytopeni a andaplastic anemia)." ALBUMIN (test code = 3.9 g/dL 3.5-5.0 N ALB) CALCIUM (test code = 9.1 mg/dL 8.4-10.2 N CA) BILIRUBIN TOTAL 0.8 mg/dL 0.2-1.3 N "A positive bias may (test code = BILT) occur for patients taking Eltrombo pag(a bone marrow sti mulant used to treat thrombocytopeni a andaplastic ane zhang)." BILIRUBIN CONJUGATED 0 mg/dL 0-0.3 N "A posi tive bias may (test code = BILCON) occur f or patients taking Eltrombo pag(a bone marrow sti mulant used to treat thrombocytopeni a andaplastic ane zhang)." C ONJUGATE D BILIRUBIN IS THE REPLACEMENT ASS AY FOR DIRECTBILIRUBIN . BILIRUBIN 0.7 mg/dL 0-1.1 N UNCONJUGATED (test code = BILUNC) SGOT/AST (test code 46 U/L 15-46 N = AST) SGPT/ALT (test code 38 U/L 0-34 H = ALT) ALKALINE PHOSPHATASE 60 U/L 38-126 N (test code = ALKP) [id number] 05:47:00 Test Item Value Reference Range Interpretation Comments MAGNESIUM (test code = MAG) 2.0 mg/dL 1.6-2.3 N CBC W/AUTO [id number] 05:31:00 Test Item Value Reference Range Interpretation Comments WHITE BLOOD CELL (test code = 3.6 x10 3/uL 5.0-12.0 L WBC) RED BLOOD CELL (test code = 4.15 x10 6/uL 4.70-6.10 L RBC) HEMOGLOBIN (test code = HGB) 11.4 g/dL 14.0-18.0 L HEMATOCRIT (test code = HCT) 35.6 % 37.0-49.0 L MEAN CELL VOLUME (test code = 86 fL 80-94 N MCV) MEAN CELL HGB (test code = MCH) 27.5 pg 27-31 N MEAN CELL HGB CONCENTRATION 32.0 g/dL 33-37 L (test code = MCHC) RED CELL DISTRIBUTION WIDTH 15.0 % 11.5-15.5 N (test code = RDW) PLATELET COUNT (test code = 169 x10 3/uL 130-400 N PLT) MEAN PLATELET VOLUME (test code 11.3 fL 9.4-16.4 N = MPV) NEUTROPHIL % (test code = NT%) 54.4 % 43-65 N IMMATURE GRANULOCYTE % (test 0.3 % 0.0-2.0 N code = IG%) LYMPHOCYTE % (test code = LY%) 30.2 % 20.5-45.5 N MONOCYTE % (test code = MO%) 11.3 % 5.5-11.7 N EOSINOPHIL % (test code = EO%) 3.3 % 0.9-2.9 H BASOPHIL % (test code = BA%) 0.5 % 0.2-1.0 N NUCLEATED RBC % (test code = 0.0 % 0-1.0 N NRBC%) NEUTROPHIL # (test code = NT#) 1.98 x10 3/uL 2.2-4.8 L IMMATURE GRANULOCYTE # (test 0.01 x10 3/uL 0-0.03 N code = IG#) LYMPHOCYTE # (test code = LY#) 1.10 x10 3/uL 1.3-2.9 L MONOCYTE # (test code = MO#) 0.41 x10 3/uL 0.3-0.8 N EOSINOPHIL # (test code = EO#) 0.12 x10 3/uL 0.0-0.2 N BASOPHIL # (test code = BA#) 0.02 x10 3/uL 0.0-0.1 N COMPREHENSIVE METABOLIC [id number] 03:54:00 Test Item Value Reference Range Interpretation Comments SODIUM (test code = 139 mmol/L 137-145 N NA) POTASSIUM (test code 4.2 mmol/L 3.4-5.0 N = K) CHLORIDE (test code 107 mmol/L 98-107 N = CL) CARBON DIOXIDE (test 26 mmol/L 22-30 N code = CO2) GLUCOSE (test code = 90 mg/dL 74-106 N GLU) BLOOD UREA NITROGEN 14 mg/dL 9-20 N (test code = BUN) GLOMERULAR 84 >60 The estimated FILTRATION RATE glomerular f iltration (test code = GFR) rate is co mputed usingpatient ra ce, age (>18), sex, and serum creatinine. If anyof the needed data elements are mi ssing the Laboratory cannot compute an bobby mation of the glomerul ar filtration rate . CREATININE (test 1.2 mg/dL 0.7-1.3 N code = CREAT) TOTAL PROTEIN (test 6.6 g/dL 6.3-8.2 N code = PROT) " A positive bias m ay occur for patients ta janessa Eltrombopag(a b one marrow stimulan t used to treat thrombocytopeni a andaplastic anemia)." ALBUMIN (test code = 3.7 g/dL 3.5-5.0 N ALB) CALCIUM (test code = 9.0 mg/dL 8.4-10.2 N CA) BILIRUBIN TOTAL 1.0 mg/dL 0.2-1.3 N "A positive bias may (test code = BILT) occur for patients taking Eltrombo pag(a bone marrow sti mulant used to treat thrombocytopeni a andaplastic ane zhang)." BILIRUBIN CONJUGATED 0 mg/dL 0-0.3 N "A posi tive bias may (test code = BILCON) occur f or patients taking Eltrombo pag(a bone marrow sti mulant used to treat thrombocytopeni a andaplastic ane zhang)." C ONJUGATE D BILIRUBIN IS THE REPLACEMENT ASS AY FOR DIRECTBILIRUBIN . BILIRUBIN 0.7 mg/dL 0-1.1 N UNCONJUGATED (test code = BILUNC) SGOT/AST (test code 31 U/L 15-46 N = AST) SGPT/ALT (test code 34 U/L 0-34 N = ALT) ALKALINE PHOSPHATASE 64 U/L 38-126 N (test code = ALKP) LIPID PROFILE (CORONARY RISK)2021-06-11 03:54:00 Test Item Value Reference Range Interpretation Comments TRIGLYCERIDES (test 192 mg/dL TRIGLYCE RIDES code = TRIG) REFERENCE RANGE:Normal: < 150 mg/dLBorderline High: 150-199 mg/dLHi gh: 200-499 mg/dLVe ry High: >=500 mg/ dL CHOLESTEROL (test 137 mg/dL CHOLESTERO L REFERENCE code = CHOL) RANGE:DESIRABLE : < 200 mg/dLBORDER LINE: 200-239 mg/dLHI GH: >=240 mg/dL HDL CHOLESTEROL (test 38 mg/dL 40-59 L code = HDL) LIPOPROTEIN LDL (test 73.00 mg/dL 32-99 N code = LDLC) CORONARY RISK FACTOR 3.61 CHOL/H DL RISK MALE: (test code = RISK) 1/2 AVG 3 .43 FEMALE: 1/2 AVG 3.27 AV G 4.97 AVG 4.44 2X AV G 9.55 2X AVG 7.05 3X AVG 23.39 3X AVG 11.04~~~~~~~~~~ ~~~~~~ ~~~~~~~~~~~~~~~ ~~~~~~ ~~~~~~~~~~~~~~~ ~~~~~~ ~~National Cholesterol Edu cation (NCEP) Guidelines:~~~~ ~~~~~~ ~~~~~~~~~~~~~~~ ~~~~~~ ~~~~~~~~~~~~~~~ ~~~~~~ ~~~~~~~~ HDL Cholesterol<4 0mg/dL : HDL Cholester ol (Major risk fac tor for CHD)>60mg/d L: HDL Cholesterol (Ne gative risk factor for CHD)40-59mg/dL: Borderline Risk LDL Cholesterol<1 00mg/d L: Desirable LD L-C [id number] 0-159m g/dL: Borderlin e High Risk LDL-C [id number] 0-189m g/dL: High risk LDL-C concentration H DL-LDL Cholesterol is affected by a n umber of factors such as smoking, age an d sex.~~~~~~~~~~~ ~~~~~~ ~~~~~~~~~~~~~~~ ~~~~~~ ~~~~~~~~~~~~~~~ ~~~~~~ ~ [id number] 03:54:00 Test Item Value Reference Range Interpretation Comments MAGNESIUM (test code = MAG) 2.3 mg/dL 1.6-2.3 N CBC W/AUTO [id number] 03:29:00 Test Item Value Reference Range Interpretation Comments WHITE BLOOD CELL (test code = 4.6 x10 3/uL 5.0-12.0 L WBC) RED BLOOD CELL (test code = 3.95 x10 6/uL 4.70-6.10 L RBC) HEMOGLOBIN (test code = HGB) 10.9 g/dL 14.0-18.0 L HEMATOCRIT (test code = HCT) 34.1 % 37.0-49.0 L MEAN CELL VOLUME (test code = 86 fL 80-94 N MCV) MEAN CELL HGB (test code = MCH) 27.6 pg 27-31 N MEAN CELL HGB CONCENTRATION 32.0 g/dL 33-37 L (test code = MCHC) RED CELL DISTRIBUTION WIDTH 15.5 % 11.5-15.5 N (test code = RDW) PLATELET COUNT (test code = 153 x10 3/uL 130-400 N PLT) MEAN PLATELET VOLUME (test code 11.0 fL 9.4-16.4 N = MPV) NEUTROPHIL % (test code = NT%) 69.8 % 43-65 H IMMATURE GRANULOCYTE % (test 0.2 % 0.0-2.0 N code = IG%) LYMPHOCYTE % (test code = LY%) 17.1 % 20.5-45.5 L MONOCYTE % (test code = MO%) 11.0 % 5.5-11.7 N EOSINOPHIL % (test code = EO%) 1.7 % 0.9-2.9 N BASOPHIL % (test code = BA%) 0.2 % 0.2-1.0 N NUCLEATED RBC % (test code = 0.0 % 0-1.0 N NRBC%) NEUTROPHIL # (test code = NT#) 3.22 x10 3/uL 2.2-4.8 N IMMATURE GRANULOCYTE # (test 0.01 x10 3/uL 0-0.03 N code = IG#) LYMPHOCYTE # (test code = LY#) 0.79 x10 3/uL 1.3-2.9 L MONOCYTE # (test code = MO#) 0.51 x10 3/uL 0.3-0.8 N EOSINOPHIL # (test code = EO#) 0.08 x10 3/uL 0.0-0.2 N BASOPHIL # (test code = BA#) 0.01 x10 3/uL 0.0-0.1 N BASIC METABOLIC [id number] 19:31:00 Test Item Value Reference Range Interpretation Comments SODIUM (test code = 140 mmol/L 137-145 N NA) POTASSIUM (test code 3.7 mmol/L 3.4-5.0 N = K) CHLORIDE (test code = 105 mmol/L 98-107 N CL) CARBON DIOXIDE (test 23 mmol/L 22-30 N code = CO2) GLUCOSE (test code = 125 mg/dL 74-106 H GLU) BLOOD UREA NITROGEN 15 mg/dL 9-20 N (test code = BUN) GLOMERULAR FILTRATION 93 >60 The es timated RATE (test code = glomerular filtration GFR) rate is compute d usingpatient ra ce, age (>18), sex, and serum creatinine. If anyof the needed data elements are mi ssing the Laboratory cannot compute an bobby mation of the glomerul ar filtration rate . CREATININE (test code 1.1 mg/dL 0.7-1.3 N = CREAT) CALCIUM (test code = 9.5 mg/dL 8.4-10.2 N CA) LIVER FUNCTION [id number] 19:31:00 Test Item Value Reference Range Interpretation Comments TOTAL PROTEIN (test 7.7 g/dL 6.3-8.2 N code = PROT) "A positive bias may occur for patients taking Eltrombopag(a b one marrow stimulan t used to treat thrombocy topenia andaplastic anemia)." ALBUMIN (test code = 4.4 g/dL 3.5-5.0 N ALB) BILIRUBIN TOTAL 1.1 mg/dL 0.2-1.3 N "A positive bias may (test code = BILT) occur for patients taking Eltrombo pag(a bone marrow sti mulant used to treat thrombocytopeni a andaplastic ane zhang)." BILIRUBIN CONJUGATED 0 mg/dL 0-0.3 N "A posi tive bias may (test code = BILCON) occur f or patients taking Eltrombo pag(a bone marrow sti mulant used to treat thrombocytopeni a andaplastic ane zhang)." CON JUGATED BILIRUBIN IS TH E REPLACEMENT ASS AY FOR DIRECTBILIRUBIN . BILIRUBIN 1.0 mg/dL 0-1.1 N UNCONJUGATED (test code = BILUNC) SGOT/AST (test code 46 U/L 15-46 N = AST) SGPT/ALT (test code 56 U/L 0-34 H = ALT) ALKALINE PHOSPHATASE 87 U/L 38-126 N (test code = ALKP) [id number] 19:31:00 Test Item Value Reference Range Interpretation Comments LIPASE (test code = > 4000 U/L 23-300 H ~~~~~~~~ ~~~~~~~~~~~~~~ LIP) ~~~~~~~~~~~~~~~ ~~~~~~~ ~~~~~~~~~~~~~Re ported result verified with auto diltuion procedure.~~~~~ ~~~~~~~ ~~~~~~~~~~~~~~~ ~~~~~~~ ~~~~~~~~~~~~~~~ ~~~~~~~ ~ BASIC METABOLIC [id number] 19:24:00 Test Item Value Reference Range Interpretation Comments SODIUM (test code = 140 mmol/L 137-145 N NA) POTASSIUM (test code 3.7 mmol/L 3.4-5.0 N = K) CHLORIDE (test code = 105 mmol/L 98-107 N CL) CARBON DIOXIDE (test 23 mmol/L 22-30 N code = CO2) GLUCOSE (test code = 125 mg/dL 74-106 H GLU) BLOOD UREA NITROGEN 15 mg/dL 9-20 N (test code = BUN) GLOMERULAR FILTRATION 93 >60 The es timated RATE (test code = glomerular filtration GFR) rate is compute d usingpatient ra ce, age (>18), sex, and serum creatinine. If anyof the needed data elements are mi ssing the Laboratory cannot compute an bobby mation of the glomerul ar filtration rate . CREATININE (test code 1.1 mg/dL 0.7-1.3 N = CREAT) CALCIUM (test code = 9.5 mg/dL 8.4-10.2 N CA) LIVER FUNCTION [id number] 19:24:00 Test Item Value Reference Range Interpretation Comments TOTAL PROTEIN (test 7.7 g/dL 6.3-8.2 N code = PROT) "A positive bias may occur for patients taking Eltrombopag(a b one marrow stimulan t used to treat thrombocy topenia andaplastic anemia)." ALBUMIN (test code = 4.4 g/dL 3.5-5.0 N ALB) BILIRUBIN TOTAL 1.1 mg/dL 0.2-1.3 N "A positive bias may (test code = BILT) occur for patients taking Eltrombo pag(a bone marrow sti mulant used to treat thrombocytopeni a andaplastic ane zhang)." BILIRUBIN CONJUGATED 0 mg/dL 0-0.3 N "A posi tive bias may (test code = BILCON) occur f or patients taking Eltrombo pag(a bone marrow sti mulant used to treat thrombocytopeni a andaplastic ane zhang)." CON JUGATED BILIRUBIN IS TH E REPLACEMENT ASS AY FOR DIRECTBILIRUBIN . BILIRUBIN 1.0 mg/dL 0-1.1 N UNCONJUGATED (test code = BILUNC) SGOT/AST (test code 46 U/L 15-46 N = AST) SGPT/ALT (test code 56 U/L 0-34 H = ALT) ALKALINE PHOSPHATASE 87 U/L 38-126 N (test code = ALKP) [id number] 19:24:00 Test Item Value Reference Range Interpretation Comments LIPASE (test code = LIP) U/L 23-300 LACTIC [id number] 19:23:00 Test Item Value Reference Range Interpretation Comments LACTIC ACID (test code = LACT) 1.8 mmol/L 0.7-2.0 N TROPONIN I [id number] 19:13:00 Test Item Value Reference Range Interpretation Comments TROPONIN I RAPID 0.00 ng/mL 0.00-0.079 N ISTAT TROP ONIN I (test code = CRITERIA0.00-0. 08 ng/mL - TROPIRAP) Negative>0.08 n g/mL - Positive The us e of serial sampling and te sting protocol is are commended practice.An kamila vated troponin level alone is often not suffi cient fordiagnosis of myocardial infarction. Tro ponin results obtaine d by different assay s may vary.Evaluation of the extent of myoca rdial damage based on increase of troponin would be valid only if similar methodology is used. CBC W/AUTO [id number] 19:05:00 Test Item Value Reference Range Interpretation Comments WHITE BLOOD CELL (test code = 7.6 x10 3/uL 5.0-12.0 N WBC) RED BLOOD CELL (test code = 4.82 x10 6/uL 4.70-6.10 N RBC) HEMOGLOBIN (test code = HGB) 13.2 g/dL 14.0-18.0 L HEMATOCRIT (test code = HCT) 39.2 % 37.0-49.0 N MEAN CELL VOLUME (test code = 81 fL 80-94 N MCV) MEAN CELL HGB (test code = MCH) 27.4 pg 27-31 N MEAN CELL HGB CONCENTRATION 33.7 g/dL 33-37 N (test code = MCHC) RED CELL DISTRIBUTION WIDTH 14.8 % 11.5-15.5 N (test code = RDW) PLATELET COUNT (test code = 211 x10 3/uL 130-400 N PLT) MEAN PLATELET VOLUME (test code 11.1 fL 9.4-16.4 N = MPV) NEUTROPHIL % (test code = NT%) 80.1 % 43-65 H IMMATURE GRANULOCYTE % (test 0.4 % 0.0-2.0 N code = IG%) LYMPHOCYTE % (test code = LY%) 11.9 % 20.5-45.5 L MONOCYTE % (test code = MO%) 6.9 % 5.5-11.7 N EOSINOPHIL % (test code = EO%) 0.4 % 0.9-2.9 L BASOPHIL % (test code = BA%) 0.3 % 0.2-1.0 N NUCLEATED RBC % (test code = 0.0 % 0-1.0 N NRBC%) NEUTROPHIL # (test code = NT#) 6.05 x10 3/uL 2.2-4.8 H IMMATURE GRANULOCYTE # (test 0.03 x10 3/uL 0-0.03 N code = IG#) LYMPHOCYTE # (test code = LY#) 0.90 x10 3/uL 1.3-2.9 L MONOCYTE # (test code = MO#) 0.52 x10 3/uL 0.3-0.8 N EOSINOPHIL # (test code = EO#) 0.03 x10 3/uL 0.0-0.2 N BASOPHIL # (test code = BA#) 0.02 x10 3/uL 0.0-0.1 N COMPREHENSIVE METABOLIC [id number] 03:15:00 Test Item Value Reference Range Interpretation Comments SODIUM (test code = 138 mmol/L 137-145 N NA) POTASSIUM (test code 4.1 mmol/L 3.4-5.0 N = K) CHLORIDE (test code 105 mmol/L 98-107 N = CL) CARBON DIOXIDE (test 26 mmol/L 22-30 N code = CO2) GLUCOSE (test code = 99 mg/dL 74-106 N GLU) BLOOD UREA NITROGEN 10 mg/dL 9-20 N (test code = BUN) GLOMERULAR 93 >60 The estimated FILTRATION RATE glomerular f iltration (test code = GFR) rate is co mputed usingpatient ra ce, age (>18), sex, and serum creatinine. If anyof the needed data elements are mi ssing the Laboratory cannot compute an bobby mation of the glomerul ar filtration rate . CREATININE (test 1.1 mg/dL 0.7-1.3 N code = CREAT) TOTAL PROTEIN (test 7.0 g/dL 6.3-8.2 N code = PROT) " A positive bias m ay occur for patients ta janessa Eltrombopag(a b one marrow stimulan t used to treat thrombocytopeni a andaplastic anemia)." ALBUMIN (test code = 3.7 g/dL 3.5-5.0 N ALB) CALCIUM (test code = 8.4 mg/dL 8.4-10.2 N CA) BILIRUBIN TOTAL 0.5 mg/dL 0.2-1.3 N "A positive bias may (test code = BILT) occur for patients taking Eltrombo pag(a bone marrow sti mulant used to treat thrombocytopeni a andaplastic ane zhang)." BILIRUBIN CONJUGATED 0 mg/dL 0-0.3 N "A posi tive bias may (test code = BILCON) occur f or patients taking Eltrombo pag(a bone marrow sti mulant used to treat thrombocytopeni a andaplastic ane zhang)." C ONJUGATE D BILIRUBIN IS THE REPLACEMENT ASS AY FOR DIRECTBILIRUBIN . BILIRUBIN 0.2 mg/dL 0-1.1 N UNCONJUGATED (test code = BILUNC) SGOT/AST (test code 48 U/L 15-46 H = AST) SGPT/ALT (test code 37 U/L 0-34 H = ALT) ALKALINE PHOSPHATASE 65 U/L 38-126 N (test code = ALKP) [id number] 03:15:00 Test Item Value Reference Range Interpretation Comments LIPASE (test code = LIP) 610 U/L 23-300 H CBC W/AUTO [id number] 03:01:00 Test Item Value Reference Range Interpretation Comments WHITE BLOOD CELL (test code = 3.3 x10 3/uL 5.0-12.0 L WBC) RED BLOOD CELL (test code = 4.04 x10 6/uL 4.70-6.10 L RBC) HEMOGLOBIN (test code = HGB) 10.5 g/dL 14.0-18.0 L HEMATOCRIT (test code = HCT) 33.4 % 37.0-49.0 L MEAN CELL VOLUME (test code = 83 fL 80-94 N MCV) MEAN CELL HGB (test code = MCH) 26.0 pg 27-31 L MEAN CELL HGB CONCENTRATION 31.4 g/dL 33-37 L (test code = MCHC) RED CELL DISTRIBUTION WIDTH 15.2 % 11.5-15.5 N (test code = RDW) PLATELET COUNT (test code = 182 x10 3/uL 130-400 N PLT) MEAN PLATELET VOLUME (test code 11.0 fL 9.4-16.4 N = MPV) NEUTROPHIL % (test code = NT%) 54.3 % 43-65 N IMMATURE GRANULOCYTE % (test 0.3 % 0.0-2.0 N code = IG%) LYMPHOCYTE % (test code = LY%) 28.5 % 20.5-45.5 N MONOCYTE % (test code = MO%) 12.4 % 5.5-11.7 H EOSINOPHIL % (test code = EO%) 3.6 % 0.9-2.9 H BASOPHIL % (test code = BA%) 0.9 % 0.2-1.0 N NUCLEATED RBC % (test code = 0.0 % 0-1.0 N NRBC%) NEUTROPHIL # (test code = NT#) 1.79 x10 3/uL 2.2-4.8 L IMMATURE GRANULOCYTE # (test 0.01 x10 3/uL 0-0.03 N code = IG#) LYMPHOCYTE # (test code = LY#) 0.94 x10 3/uL 1.3-2.9 L MONOCYTE # (test code = MO#) 0.41 x10 3/uL 0.3-0.8 N EOSINOPHIL # (test code = EO#) 0.12 x10 3/uL 0.0-0.2 N BASOPHIL # (test code = BA#) 0.03 x10 3/uL 0.0-0.1 N [id number] 05:59:00 Test Item Value Reference Range Interpretation Comments LIPASE (test code = LIP) 1458 U/L 23-300 H BASIC METABOLIC [id number] 01:08:00 Test Item Value Reference Range Interpretation Comments SODIUM (test code = 134 mmol/L 137-145 L NA) POTASSIUM (test code 3.8 mmol/L 3.4-5.0 N = K) CHLORIDE (test code = 105 mmol/L 98-107 N CL) CARBON DIOXIDE (test 23 mmol/L 22-30 N code = CO2) GLUCOSE (test code = 100 mg/dL 74-106 N GLU) BLOOD UREA NITROGEN 9 mg/dL 9-20 N (test code = BUN) GLOMERULAR FILTRATION 93 >60 The es timated RATE (test code = glomerular filtration GFR) rate is compute d usingpatient ra ce, age (>18), sex, and serum creatinine. If anyof the needed data elements are mi ssing the Laboratory cannot compute an bobby mation of the glomerul ar filtration rate . CREATININE (test code 1.1 mg/dL 0.7-1.3 N = CREAT) CALCIUM (test code = 8.3 mg/dL 8.4-10.2 L CA) CBC W/AUTO [id number] 01:02:00 Test Item Value Reference Range Interpretation Comments WHITE BLOOD CELL (test code = 5.3 x10 3/uL 5.0-12.0 N WBC) RED BLOOD CELL (test code = 4.09 x10 6/uL 4.70-6.10 L RBC) HEMOGLOBIN (test code = HGB) 10.8 g/dL 14.0-18.0 L HEMATOCRIT (test code = HCT) 33.3 % 37.0-49.0 L MEAN CELL VOLUME (test code = 81 fL 80-94 N MCV) MEAN CELL HGB (test code = MCH) 26.4 pg 27-31 L MEAN CELL HGB CONCENTRATION 32.4 g/dL 33-37 L (test code = MCHC) RED CELL DISTRIBUTION WIDTH 15.0 % 11.5-15.5 N (test code = RDW) PLATELET COUNT (test code = 179 x10 3/uL 130-400 N PLT) MEAN PLATELET VOLUME (test code 11.0 fL 9.4-16.4 N = MPV) NEUTROPHIL % (test code = NT%) 75.4 % 43-65 H IMMATURE GRANULOCYTE % (test 0.4 % 0.0-2.0 N code = IG%) LYMPHOCYTE % (test code = LY%) 11.9 % 20.5-45.5 L MONOCYTE % (test code = MO%) 10.0 % 5.5-11.7 N EOSINOPHIL % (test code = EO%) 1.9 % 0.9-2.9 N BASOPHIL % (test code = BA%) 0.4 % 0.2-1.0 N NUCLEATED RBC % (test code = 0.0 % 0-1.0 N NRBC%) NEUTROPHIL # (test code = NT#) 3.99 x10 3/uL 2.2-4.8 N IMMATURE GRANULOCYTE # (test 0.02 x10 3/uL 0-0.03 N code = IG#) LYMPHOCYTE # (test code = LY#) 0.63 x10 3/uL 1.3-2.9 L MONOCYTE # (test code = MO#) 0.53 x10 3/uL 0.3-0.8 N EOSINOPHIL # (test code = EO#) 0.10 x10 3/uL 0.0-0.2 N BASOPHIL # (test code = BA#) 0.02 x10 3/uL 0.0-0.1 N [id number] 11:55:00 Test Item Value Reference Range Interpretation Comments LIPASE (test code = LIP) 3671 U/L 23-300 H COMPREHENSIVE METABOLIC [id number] 05:51:00 Test Item Value Reference Range Interpretation Comments SODIUM (test code = 135 mmol/L 137-145 L NA) POTASSIUM (test code 3.9 mmol/L 3.4-5.0 N = K) CHLORIDE (test code 105 mmol/L 98-107 N = CL) CARBON DIOXIDE (test 21 mmol/L 22-30 L code = CO2) GLUCOSE (test code = 108 mg/dL 74-106 H GLU) BLOOD UREA NITROGEN 15 mg/dL 9-20 N (test code = BUN) GLOMERULAR 93 >60 The estimated FILTRATION RATE glomerular f iltration (test code = GFR) rate is co mputed usingpatient ra ce, age (>18), sex, and serum creatinine. If anyof the needed data elements are mi ssing the Laboratory cannot compute an bobby mation of the glomerul ar filtration rate . CREATININE (test 1.1 mg/dL 0.7-1.3 N code = CREAT) TOTAL PROTEIN (test 7.1 g/dL 6.3-8.2 N code = PROT) " A positive bias m ay occur for patients ta janessa Eltrombopag(a b one marrow stimulan t used to treat thrombocytopeni a andaplastic anemia)." ALBUMIN (test code = 3.9 g/dL 3.5-5.0 N ALB) CALCIUM (test code = 8.4 mg/dL 8.4-10.2 N CA) BILIRUBIN TOTAL 1.0 mg/dL 0.2-1.3 N "A positive bias may (test code = BILT) occur for patients taking Eltrombo pag(a bone marrow sti mulant used to treat thrombocytopeni a andaplastic ane zhang)." BILIRUBIN CONJUGATED 0 mg/dL 0-0.3 N "A posi tive bias may (test code = BILCON) occur f or patients taking Eltrombo pag(a bone marrow sti mulant used to treat thrombocytopeni a andaplastic ane zhang)." C ONJUGATE D BILIRUBIN IS THE REPLACEMENT ASS AY FOR DIRECTBILIRUBIN . BILIRUBIN 0.8 mg/dL 0-1.1 N UNCONJUGATED (test code = BILUNC) SGOT/AST (test code 45 U/L 15-46 N = AST) SGPT/ALT (test code 37 U/L 0-34 H = ALT) ALKALINE PHOSPHATASE 73 U/L 38-126 N (test code = ALKP) LIPID PROFILE (CORONARY RISK)2021-05-07 05:51:00 Test Item Value Reference Range Interpretation Comments TRIGLYCERIDES (test 352 mg/dL TRIGLYCE RIDES code = TRIG) REFERENCE RANGE:Normal: < 150 mg/dLBorderline High: 150-199 mg/dLHi gh: 200-499 mg/dLVe ry High: >=500 mg/ dL CHOLESTEROL (test 163 mg/dL CHOLESTERO L REFERENCE code = CHOL) RANGE:DESIRABLE : < 200 mg/dLBORDER LINE: 200-239 mg/dLHI GH: >=240 mg/dL HDL CHOLESTEROL (test 47 mg/dL 40-59 N code = HDL) LIPOPROTEIN LDL (test 69.32 mg/dL 32-99 N code = LDLC) CORONARY RISK FACTOR 3.47 CHOL/H DL RISK MALE: (test code = RISK) 1/2 AVG 3 .43 FEMALE: 1/2 AVG 3.27 AV G 4.97 AVG 4.44 2X AV G 9.55 2X AVG 7.05 3X AVG 23.39 3X AVG 11.04~~~~~~~~~~ ~~~~~~ ~~~~~~~~~~~~~~~ ~~~~~~ ~~~~~~~~~~~~~~~ ~~~~~~ ~~National Cholesterol Edu cation (NCEP) Guidelines:~~~~ ~~~~~~ ~~~~~~~~~~~~~~~ ~~~~~~ ~~~~~~~~~~~~~~~ ~~~~~~ ~~~~~~~~ HDL Cholesterol<4 0mg/dL : HDL Cholester ol (Major risk fac tor for CHD)>60mg/d L: HDL Cholesterol (Ne gative risk factor for CHD)40-59mg/dL: Borderline Risk LDL Cholesterol<1 00mg/d L: Desirable LD L-C [id number] 0-159m g/dL: Borderlin e High Risk LDL-C [id number] 0-189m g/dL: High risk LDL-C concentration H DL-LDL Cholesterol is affected by a n umber of factors such as smoking, age an d sex.~~~~~~~~~~~ ~~~~~~ ~~~~~~~~~~~~~~~ ~~~~~~ ~~~~~~~~~~~~~~~ ~~~~~~ ~ [id number] 05:51:00 Test Item Value Reference Range Interpretation Comments MAGNESIUM (test code = MAG) 2.0 mg/dL 1.6-2.3 N COMPREHENSIVE METABOLIC [id number] 05:38:00 Test Item Value Reference Range Interpretation Comments SODIUM (test code = 135 mmol/L 137-145 L NA) POTASSIUM (test code 3.9 mmol/L 3.4-5.0 N = K) CHLORIDE (test code 105 mmol/L 98-107 N = CL) CARBON DIOXIDE (test 21 mmol/L 22-30 L code = CO2) GLUCOSE (test code = 108 mg/dL 74-106 H GLU) BLOOD UREA NITROGEN 15 mg/dL 9-20 N (test code = BUN) GLOMERULAR 93 >60 The estimated FILTRATION RATE glomerular f iltration (test code = GFR) rate is co mputed usingpatient ra ce, age (>18), sex, and serum creatinine. If anyof the needed data elements are mi ssing the Laboratory cannot compute an bobby mation of the glomerul ar filtration rate . CREATININE (test 1.1 mg/dL 0.7-1.3 N code = CREAT) TOTAL PROTEIN (test 7.1 g/dL 6.3-8.2 N code = PROT) " A positive bias m ay occur for patients ta janessa Eltrombopag(a b one marrow stimulan t used to treat thrombocytopeni a andaplastic anemia)." ALBUMIN (test code = 3.9 g/dL 3.5-5.0 N ALB) CALCIUM (test code = 8.4 mg/dL 8.4-10.2 N CA) BILIRUBIN TOTAL 1.0 mg/dL 0.2-1.3 N "A positive bias may (test code = BILT) occur for patients taking Eltrombo pag(a bone marrow sti mulant used to treat thrombocytopeni a andaplastic ane zhang)." BILIRUBIN CONJUGATED 0 mg/dL 0-0.3 N "A posi tive bias may (test code = BILCON) occur f or patients taking Eltrombo pag(a bone marrow sti mulant used to treat thrombocytopeni a andaplastic ane zhang)." C ONJUGATE D BILIRUBIN IS THE REPLACEMENT ASS AY FOR DIRECTBILIRUBIN . BILIRUBIN 0.8 mg/dL 0-1.1 N UNCONJUGATED (test code = BILUNC) SGOT/AST (test code 45 U/L 15-46 N = AST) SGPT/ALT (test code 37 U/L 0-34 H = ALT) ALKALINE PHOSPHATASE 73 U/L 38-126 N (test code = ALKP) LIPID PROFILE (CORONARY RISK)2021-05-07 05:38:00 Test Item Value Reference Range Interpretation Comments TRIGLYCERIDES (test 352 mg/dL TRIGLYCE RIDES code = TRIG) REFERENCE RANGE:Normal: < 150 mg/dLBorderline High: 150-199 mg/dLHi gh: 200-499 mg/dLVe ry High: >=500 mg/ dL CHOLESTEROL (test code 163 mg/dL TIM STEROL REFERENCE = CHOL) RANGE:DESIRABLE : < 200 mg/dLBORDERLINE : 200-239 mg/dLHI GH: >=240 mg/dL HDL CHOLESTEROL (test 47 mg/dL 40-59 N code = HDL) LIPOPROTEIN LDL (test mg/dL 32-99 code = LDLC) CORONARY RISK FACTOR 3.47 CHOL/ HDL RISK MALE: (test code = RISK) 1/2 AVG 3 .43 FEMALE: 1/2 AVG 3.27 AV G 4.97 AVG 4.44 2X AVG 9.55 2X AVG 7.05 3X AVG 23.39 3X AVG 11.04~~~~~~~~~~ ~~~~~~~ ~~~~~~~~~~~~~~~ ~~~~~~~ ~~~~~~~~~~~~~~~ ~~~~~~N [facility] pretty Education (GAEP ) Guidelines:~~~~ ~~~~~~~ ~~~~~~~~~~~~~~~ ~~~~~~~ ~~~~~~~~~~~~~~~ ~~~~~~~ ~~~~~ HDL Cholesterol<4 0mg/dL: HDL Cholesterol (Major risk factor for CHD)>60mg/dL: H DL Cholesterol (Ne gative risk factor for CHD)40-59mg/dL: Borderline Risk LDL Cholesterol<1 00mg/dL : Desirable LDL -C [id number] 0-159mg /dL: Borderline High Risk LDL-C [id number] 0-189mg /dL: High risk LDL-C concentration H DL-LDL Cholesterol is affected by a n umber of factors such as smoking, age an d sex.~~~~~~~~~~~ ~~~~~~~ ~~~~~~~~~~~~~~~ ~~~~~~~ ~~~~~~~~~~~~~~~ ~~~~~ [id number] 05:38:00 Test Item Value Reference Range Interpretation Comments MAGNESIUM (test code = MAG) 2.0 mg/dL 1.6-2.3 N CBC W/AUTO [id number] 05:14:00 Test Item Value Reference Range Interpretation Comments WHITE BLOOD CELL (test code = 6.5 x10 3/uL 5.0-12.0 N WBC) RED BLOOD CELL (test code = 4.39 x10 6/uL 4.70-6.10 L RBC) HEMOGLOBIN (test code = HGB) 11.7 g/dL 14.0-18.0 L HEMATOCRIT (test code = HCT) 35.3 % 37.0-49.0 L MEAN CELL VOLUME (test code = 80 fL 80-94 N MCV) MEAN CELL HGB (test code = MCH) 26.7 pg 27-31 L MEAN CELL HGB CONCENTRATION 33.1 g/dL 33-37 N (test code = MCHC) RED CELL DISTRIBUTION WIDTH 15.0 % 11.5-15.5 N (test code = RDW) PLATELET COUNT (test code = 193 x10 3/uL 130-400 N PLT) MEAN PLATELET VOLUME (test code 10.9 fL 9.4-16.4 N = MPV) NEUTROPHIL % (test code = NT%) 77.4 % 43-65 H IMMATURE GRANULOCYTE % (test 0.3 % 0.0-2.0 N code = IG%) LYMPHOCYTE % (test code = LY%) 11.0 % 20.5-45.5 L MONOCYTE % (test code = MO%) 9.4 % 5.5-11.7 N EOSINOPHIL % (test code = EO%) 1.4 % 0.9-2.9 N BASOPHIL % (test code = BA%) 0.5 % 0.2-1.0 N NUCLEATED RBC % (test code = 0.0 % 0-1.0 N NRBC%) NEUTROPHIL # (test code = NT#) 5.02 x10 3/uL 2.2-4.8 H IMMATURE GRANULOCYTE # (test 0.02 x10 3/uL 0-0.03 N code = IG#) LYMPHOCYTE # (test code = LY#) 0.71 x10 3/uL 1.3-2.9 L MONOCYTE # (test code = MO#) 0.61 x10 3/uL 0.3-0.8 N EOSINOPHIL # (test code = EO#) 0.09 x10 3/uL 0.0-0.2 N BASOPHIL # (test code = BA#) 0.03 x10 3/uL 0.0-0.1 N URINALYSIS [id number] 09:07:00 Test Item Value Reference Range Interpretation Comments UA COLOR (test code Yellow Yellow = COLU) UA APPEARANCE (test Clear Clear code = APPU) UA GLUCOSE DIPSTICK Negative Negative (test code = DGLUU) UA BILIRUBIN Negative Negative DIPSTICK (test code = BILU) UA KETONE DIPSTICK Negative mg/dL Negative (test code = KETU) UA SPECIFIC GRAVITY >1.060 <1.030 A (test code = SGU) UA BLOOD DIPSTICK Negative Negative (test code = CANDY) UA PH DIPSTICK (test 5.0 5.0-8.0 code = BOUCHRA) UA PROTEIN DIPSTICK NEGATIVE mg/dL Negative (test code = PROU) UA UROBILINOGEN Negative mg/dL Negative DIPSTICK (test code = URO) UA NITRITE DIPSTICK Negative Negative (test code = TERESSA) UA LEUKOCYTE NEGATIVE Negative ESTERASE DIPSTICK (test code = LEUU) UA WBC (test code = 0-3 /HPF See_Comment [Automa madhu WBCU) message] The system which generated this result transmit madhu reference range : <4-5. The reference range was not used to interpret this result as normal/abnormal . UA RBC (test code = 0-3 /HPF See_Comment [Automa madhu RBCU) message] The system which generated this result transmit madhu reference range : <4-5. The reference range was not used to interpret this result as normal/abnormal . UA BACTERIA (test None /HPF None-Rare code = BACU) UA SQUAMOUS CELLS 0-5 (RARE) /HPF See_Comment [Autom ated (test code = SQU) message] T he system which generated this result transmit madhu reference range : 0-5 (RARE). The reference range was not used to interpret this result as normal/abnormal . BASIC METABOLIC [id number] 06:00:00 Test Item Value Reference Range Interpretation Comments SODIUM (test code = 138 mmol/L 137-145 N NA) POTASSIUM (test code 4.2 mmol/L 3.4-5.0 N = K) CHLORIDE (test code = 105 mmol/L 98-107 N CL) CARBON DIOXIDE (test 23 mmol/L 22-30 N code = CO2) GLUCOSE (test code = 98 mg/dL 74-106 N GLU) BLOOD UREA NITROGEN 23 mg/dL 9-20 H (test code = BUN) GLOMERULAR FILTRATION 65 >60 The es timated RATE (test code = glomerular filtration GFR) rate is compute d usingpatient ra ce, age (>18), sex, and serum creatinine. If anyof the needed data elements are mi ssing the Laboratory cannot compute an bobby mation of the glomerul ar filtration rate . CREATININE (test code 1.5 mg/dL 0.7-1.3 H = CREAT) CALCIUM (test code = 9.2 mg/dL 8.4-10.2 N CA) LIVER FUNCTION [id number] 06:00:00 Test Item Value Reference Range Interpretation Comments TOTAL PROTEIN (test 7.9 g/dL 6.3-8.2 N code = PROT) "A positive bias may occur for patients taking Eltrombopag(a b one marrow stimulan t used to treat thrombocy topenia andaplastic anemia)." ALBUMIN (test code = 4.3 g/dL 3.5-5.0 N ALB) BILIRUBIN TOTAL 1.1 mg/dL 0.2-1.3 N "A positive bias may (test code = BILT) occur for patients taking Eltrombo pag(a bone marrow sti mulant used to treat thrombocytopeni a andaplastic ane zhang)." BILIRUBIN CONJUGATED 0 mg/dL 0-0.3 N "A posi tive bias may (test code = BILCON) occur f or patients taking Eltrombo pag(a bone marrow sti mulant used to treat thrombocytopeni a andaplastic ane zhang)." CON JUGATED BILIRUBIN IS TH E REPLACEMENT ASS AY FOR DIRECTBILIRUBIN . BILIRUBIN 1.0 mg/dL 0-1.1 N UNCONJUGATED (test code = BILUNC) SGOT/AST (test code 54 U/L 15-46 H = AST) SGPT/ALT (test code 49 U/L 0-34 H = ALT) ALKALINE PHOSPHATASE 81 U/L 38-126 N (test code = ALKP) [id number] 06:00:00 Test Item Value Reference Range Interpretation Comments LIPASE (test code = LIP) 1872 U/L 23-300 H BASIC METABOLIC [id number] 05:58:00 Test Item Value Reference Range Interpretation Comments SODIUM (test code = 138 mmol/L 137-145 N NA) POTASSIUM (test code 4.2 mmol/L 3.4-5.0 N = K) CHLORIDE (test code = 105 mmol/L 98-107 N CL) CARBON DIOXIDE (test 23 mmol/L 22-30 N code = CO2) GLUCOSE (test code = 98 mg/dL 74-106 N GLU) BLOOD UREA NITROGEN 23 mg/dL 9-20 H (test code = BUN) GLOMERULAR FILTRATION 65 >60 The es timated RATE (test code = glomerular filtration GFR) rate is compute d usingpatient ra ce, age (>18), sex, and serum creatinine. If anyof the needed data elements are mi ssing the Laboratory cannot compute an bobby mation of the glomerul ar filtration rate . CREATININE (test code 1.5 mg/dL 0.7-1.3 H = CREAT) CALCIUM (test code = 9.2 mg/dL 8.4-10.2 N CA) LIVER FUNCTION [id number] 05:58:00 Test Item Value Reference Range Interpretation Comments TOTAL PROTEIN (test 7.9 g/dL 6.3-8.2 N code = PROT) "A positive bias may occur for patients taking Eltrombopag(a b one marrow stimulan t used to treat thrombocy topenia andaplastic anemia)." ALBUMIN (test code = 4.3 g/dL 3.5-5.0 N ALB) BILIRUBIN TOTAL 1.1 mg/dL 0.2-1.3 N "A positive bias may (test code = BILT) occur for patients taking Eltrombo pag(a bone marrow sti mulant used to treat thrombocytopeni a andaplastic ane zhang)." BILIRUBIN CONJUGATED 0 mg/dL 0-0.3 N "A posi tive bias may (test code = BILCON) occur f or patients taking Eltrombo pag(a bone marrow sti mulant used to treat thrombocytopeni a andaplastic ane zhang)." CON JUGATED BILIRUBIN IS TH E REPLACEMENT ASS AY FOR DIRECTBILIRUBIN . BILIRUBIN 1.0 mg/dL 0-1.1 N UNCONJUGATED (test code = BILUNC) SGOT/AST (test code 54 U/L 15-46 H = AST) SGPT/ALT (test code U/L 0-34 = ALT) ALKALINE PHOSPHATASE 81 U/L 38-126 N (test code = ALKP) [id number] 05:58:00 Test Item Value Reference Range Interpretation Comments LIPASE (test code = LIP) U/L 23-300 - CT ABD PELVIS [id number] 05:48:00 [facility] 1975 Sex: M FAX: Chiki Iniguez MD R2 [place]: St: REG --------- Name: OLIVIA COOK [facility] : 1975 Age/S: 46/M [address] Unit: [id number] Loc: [place] [address] Phys: Chiki Iniguez MD R2 Acct: [id number] Dis Date: Status: REG ER PHONE #: [phone] Exam Date: 05/06/2021 05 FAX #: [phone] Reason: abd pain hx pancreatitis EXAMS: CPT CODE: [id number] CT ABD PELVIS W/CONT 85069 EXAM: - CT ABD PELVIS W/CONT LOCATION: H57 HISTORY: 46 years-year old Male with abd pain hx pancreatitis TECHNIQUE: IV contrast was given, no oral contrast was given. Portal venous phase - abdomen. No delayed phase images were obtained.. Reconstructions - coronal and sagittal planes. Automated exposure reduction (Auto mA/Smart mA) was utilized in compliance with ACR [employer]. COMPARISON: 01/17/21 FINDINGS: Hepatobiliary: Unchanged 8.7 cm hypodense lesion in the right hepatic lobe demonstrating nodular peripheral enhancement, consistent witha hemangioma. There is hepatic steatosis. The gallbladder is normal. No biliary dilation. Pancreas: There is mild stranding surrounding the pancreatic head and uncinate process. No fluid collection or hypoenhancement. Spleen: An 8 mm hypodensity is too small to further characterize.. Adrenals: Normal. Genitourinary: The kidneys are normal. No hydronephrosis. The bladder is incompletely distended, limiting evaluation. The prostate is unremarkable. Gastrointestinal: No bowel obstruction or perienteric inflammation. The appendix is normal. Lymphatics: No enlarged lymph nodes by CT size criteria. Vascular: The aorta is normal in appearance. No evidence of aneurysm or dissection. Bones/Soft Tissues: No acute osseous findings. No ventral hernias. Peritoneum/Other: No free air. No free fluid. PAGE 1 Signed Report (CONTINUED) FAX: Chiki Iniguez MD R2 [place]: St: REG Name: OLIVIA COOK [facility] : 1975 Age/S: 46/M [address] Unit: [id number] Loc: [place] [address] Phys: Chiki Iniguez MD R2 Acct: [id number] Dis Date: Status: REG ER PHONE #: [phone] Exam Date: 05/06/2021 0532 FAX #: [phone] Reason: abd pain hx pancreatitis EXAMS: CPT CODE: [id number] CT ABD PELVIS W/CONT 35680 (Continued) Thoracic: Included images of the lower chest demonstrate no abnormalities. IMPRESSION: 1. Acute uncomplicated pancreatitis. 2. An 8.7 cm hypodense lesion in the right hepatic lobe with nodular peripheral enhancement likely represents a hemangioma. at 0548 Reported and signed by: Mariano Rodney MD CC: Chiki Iniguez MD Technologist: Kristal Cordoba Trnscrd Dt/Tm: 05/06/2021 ([id number]) [email or web address] Orig Print D/T: S: 05/06/2021 ([id number] PAGE 2 Signed ReportCBC W/AUTO DIFF 2021-05-06 05:39:00 Test Item Value Reference Range Interpretation Comments WHITE BLOOD CELL (test code = 5.8 x10 3/uL 5.0-12.0 N WBC) RED BLOOD CELL (test code = 4.71 x10 6/uL 4.70-6.10 N RBC) HEMOGLOBIN (test code = HGB) 12.3 g/dL 14.0-18.0 L HEMATOCRIT (test code = HCT) 38.0 % 37.0-49.0 N MEAN CELL VOLUME (test code = 81 fL 80-94 N MCV) MEAN CELL HGB (test code = MCH) 26.1 pg 27-31 L MEAN CELL HGB CONCENTRATION 32.4 g/dL 33-37 L (test code = MCHC) RED CELL DISTRIBUTION WIDTH 15.1 % 11.5-15.5 N (test code = RDW) PLATELET COUNT (test code = 226 x10 3/uL 130-400 N PLT) MEAN PLATELET VOLUME (test code 10.7 fL 9.4-16.4 N = MPV) NEUTROPHIL % (test code = NT%) 64.9 % 43-65 N IMMATURE GRANULOCYTE % (test 0.3 % 0.0-2.0 N code = IG%) LYMPHOCYTE % (test code = LY%) 23.7 % 20.5-45.5 N MONOCYTE % (test code = MO%) 8.5 % 5.5-11.7 N EOSINOPHIL % (test code = EO%) 1.9 % 0.9-2.9 N BASOPHIL % (test code = BA%) 0.7 % 0.2-1.0 N NUCLEATED RBC % (test code = 0.0 % 0-1.0 N NRBC%) NEUTROPHIL # (test code = NT#) 3.74 x10 3/uL 2.2-4.8 N IMMATURE GRANULOCYTE # (test 0.02 x10 3/uL 0-0.03 N code = IG#) LYMPHOCYTE # (test code = LY#) 1.37 x10 3/uL 1.3-2.9 N MONOCYTE # (test code = MO#) 0.49 x10 3/uL 0.3-0.8 N EOSINOPHIL # (test code = EO#) 0.11 x10 3/uL 0.0-0.2 N BASOPHIL # (test code = BA#) 0.04 x10 3/uL 0.0-0.1 N BEDSIDE [id number] 05:32:00 Test Item Value Reference Range Interpretation Comments BEDSIDE CREATININE (test code = 1.70 mg/dL 0.51-1.19 H CREATBED) Lipid 1995 panel - Serum or [id number] 00:00:00 Test Item Value Reference Range Interpretation Comments cholesterol, total 233 mg/dL <200 H (test code = cholesterol, total) HDL cholesterol (test 52 mg/dL See_Comment [Auto mated code = HDL message] The sy stem cholesterol) which generated this result transmitted reference range : > or = 40. The reference range was not used to interpret this result as normal/abnormal . triglycerides (test 319 mg/dL <150 H code = triglycerides) Cholesterol in LDL 135 mg/dL H [Mass/volume] in Serum (calc) or Plasma (test code = 2089-1) chol/HDLC ratio (test 4.5 (calc) <5.0 code = chol/HDLC ratio) non HDL cholesterol 181 mg/dL <130 H (test code = non HDL (calc) cholesterol) [facility] metabolic 2000 panel - Serum or [id number] 00:00:00 Test Item Value Reference Range Interpretation Comments glucose (test code 103 mg/dL 65-99 H = glucose) urea nitrogen 15 mg/dL 7-25 (BUN) (test code = urea nitrogen (BUN)) creatinine (test 1.13 mg/dL 0.60-1.35 code = creatinine) eGFR non-afr. 78 mL/min/1.73m2 See_Comment [Automate d liberian (test message] The system code = eGFR which generated non-afr. liberian) this resu lt transmitted reference range : > or = 60. The reference range was not used to interpret this result as normal/abnormal . eGFR 90 mL/min/1.73m2 See_Comment [Automated liberian (test message] The system code = eGFR which generated ) this resul t transmitted reference range : > or = 60. The reference range was not used to interpret this result as normal/abnormal . BUN/creatinine not applicable 6-22 ratio (test code = BUN/creatinine ratio) sodium (test code 139 mmol/L 135-146 = sodium) potassium (test 4.5 mmol/L 3.5-5.3 code = potassium) chloride (test 107 mmol/L 98-110 code = chloride) carbon dioxide 25 mmol/L 20-32 (test code = carbon dioxide) calcium (test code 9.6 mg/dL 8.6-10.3 = calcium) [facility] or [id number] 00:00:00 Test Item Value Reference Range Interpretation Comments protein, total (test 7.1 g/dL 6.1-8.1 code = protein, total) albumin (test code = 4.2 g/dL 3.6-5.1 albumin) globulin (test code 2.9 g/dL 1.9-3.7 = globulin) (calc) albumin/globulin 1.4 (calc) 1.0-2.5 ratio (test code = albumin/globulin ratio) bilirubin, total 0.3 mg/dL 0.2-1.2 (test code = bilirubin, total) bilirubin, direct 0.0 mg/dL See_Comment [Automate d message] (test code = The system whic h bilirubin, direct) generated this result transmit madhu reference range : < or = 0.2. The reference range was not used to interpret this result as normal/abnormal . bilirubin, indirect 0.3 mg/dL 0.2-1.2 (test code = (calc) bilirubin, indirect) alkaline phosphatase 75 U/L 36-130 (test code = alkaline phosphatase) AST (test code = 32 U/L 10-40 AST) ALT (test code = 41 U/L 9-46 ALT) [facility] - [id number] 00:00:00 Test Item Value Reference Range Interpretation Comments color (test code = yellow yellow color) appearance (test code clear clear = appearance) specific gravity 1.020 1.001-1.035 (test code = specific gravity) pH (test code = pH) < or = 5.0 5.0-8.0 glucose (test code = negative negative glucose) bilirubin (test code negative negative = bilirubin) ketones (test code = negative negative ketones) occult blood (test trace negative A code = occult blood) protein (test code = negative negative protein) nitrite (test code = negative negative nitrite) leukocyte esterase negative negative (test code = leukocyte esterase) WBC (test code = WBC) none seen See_Comment [Auto mated message] The system [employer] generated this result transmitted ref erence range: < or = 5 . The reference range was not used to int erpret this result as normal/abnormal . RBC (test code = RBC) none seen See_Comment [Auto mated message] The system [facility] generated this result transmitted ref erence range: < or = 2 . The reference range was not used to int erpret this result as normal/abnormal . squamous epithelial none seen See_Comment [Automa madhu message] cells (test code = The syste m which squamous epithelial generate d this result cells) transmitted ref erence range: < or = 5 . The reference range was not used to int erpret this result as normal/abnormal . bacteria (test code = none seen none seen bacteria) hyaline cast (test none seen none seen code = hyaline cast) [facility] W Auto Differential panel - [id number] 00:00:00 Test Item Value Reference Range Interpretation Comments white blood cell count (test 3.2 thousand/uL 3.8-10.8 L code = white blood cell count) red blood cell count (test 4.67 million/uL 4.20-5.80 code = red blood cell count) hemoglobin (test code = 12.0 g/dL 13.2-17.1 L hemoglobin) hematocrit (test code = 37.1 % 38.5-50.0 L hematocrit) MCV (test code = MCV) 79.4 fL 80.0-100.0 L MCH (test code = MCH) 25.7 pg 27.0-33.0 L MCHC (test code = MCHC) 32.3 g/dL 32.0-36.0 RDW (test code = RDW) 14.6 % 11.0-15.0 platelet count (test code = 233 thousand/uL 140-400 platelet count) MPV (test code = MPV) 11.4 fL 7.5-12.5 absolute neutrophils (test 1686 cells/uL 7632-4555 code = absolute neutrophils) absolute lymphocytes (test 1050 cells/uL 850-3900 code = absolute lymphocytes) absolute monocytes (test code 365 cells/uL 200-950 = absolute monocytes) absolute eosinophils (test 80 cells/uL 15-500 code = absolute eosinophils) absolute basophils (test code 19 cells/uL 0-200 = absolute basophils) neutrophils (test code = 52.7 % neutrophils) lymphocytes (test code = 32.8 % lymphocytes) monocytes (test code = 11.4 % monocytes) eosinophils (test code = 2.5 % eosinophils) basophils (test code = 0.6 % basophils) [facility] [Mass/volume] in Serum or Plasma 2021-04-14 00:00:00 Test Item Value Reference Range Interpretation Comments T4, free (test code = T4, free) 1.2 NG/dL 0.8-1.8 [facility]Thyrotropin [Units/volume] in Serum or [id number] 00:00:00 Test Item Value Reference Range Interpretation Comments TSH (test code = TSH) 1.73 mIU/L 0.40-4.50 [facility]PS[facility], serum or [id number] 00:00:00 Test Item Value Reference Range Interpretation Comments PSA, total (test 0.6 NG/mL See_Comment [Automated message] The code = PSA, total) system [facility] generated this result tra nsmitted reference range : < or = 4.0. The refere nce range was not used to interpret this result as normal/abnormal . [facility] [id number] 04:16:00 Test Item Value Reference Range Interpretation Comments SODIUM (test code = 137 mmol/L 137-145 N NA) POTASSIUM (test code 4.0 mmol/L 3.4-5.0 N = K) CHLORIDE (test code 106 mmol/L 98-107 N = CL) CARBON DIOXIDE (test 26 mmol/L 22-30 N code = CO2) GLUCOSE (test code = 83 mg/dL 74-106 N GLU) BLOOD UREA NITROGEN 9 mg/dL 9-20 N (test code = BUN) GLOMERULAR 104 >60 The estimated FILTRATION RATE glomerular f iltration (test code = GFR) rate is co mputed usingpatient ra ce, age (>18), sex, and serum creatinine. If anyof the needed data elements are mi ssing the Laboratory cannot compute an bobby mation of the glomerul ar filtration rate . CREATININE (test 1.0 mg/dL 0.7-1.3 N code = CREAT) TOTAL PROTEIN (test 6.2 g/dL 6.3-8.2 L code = PROT) " A positive bias m ay occur for patients ta janessa Eltrombopag(a b one marrow stimulan t used to treat thrombocytopeni a andaplastic anemia)." ALBUMIN (test code = 3.6 g/dL 3.5-5.0 N ALB) CALCIUM (test code = 8.3 mg/dL 8.4-10.2 L CA) BILIRUBIN TOTAL 0.6 mg/dL 0.2-1.3 N "A positive bias may (test code = BILT) occur for patients taking Eltrombo pag(a bone marrow sti mulant used to treat thrombocytopeni a andaplastic ane zhang)." BILIRUBIN CONJUGATED 0 mg/dL 0-0.3 N "A posi tive bias may (test code = BILCON) occur f or patients taking Eltrombo pag(a bone marrow sti mulant used to treat thrombocytopeni a andaplastic ane zhang)." C ONJUGATE D BILIRUBIN IS THE REPLACEMENT ASS AY FOR DIRECTBILIRUBIN . BILIRUBIN 0.5 mg/dL 0-1.1 N UNCONJUGATED (test code = BILUNC) SGOT/AST (test code 29 U/L 15-46 N = AST) SGPT/ALT (test code 21 U/L 0-34 N = ALT) ALKALINE PHOSPHATASE 56 U/L 38-126 N (test code = ALKP) [id number] 04:16:00 Test Item Value Reference Range Interpretation Comments PHOSPHOROUS (test code = PHOS) 2.9 mg/dL 2.5-4.5 N [id number] 04:16:00 Test Item Value Reference Range Interpretation Comments LIPASE (test code = LIP) 1318 U/L 23-300 H [id number] 04:16:00 Test Item Value Reference Range Interpretation Comments MAGNESIUM (test code = MAG) 2.2 mg/dL 1.6-2.3 N CBC W/AUTO [id number] 03:57:00 Test Item Value Reference Range Interpretation Comments WHITE BLOOD CELL (test code = 3.3 x10 3/uL 5.0-12.0 L WBC) RED BLOOD CELL (test code = 3.59 x10 6/uL 4.70-6.10 L RBC) HEMOGLOBIN (test code = HGB) 9.5 g/dL 14.0-18.0 L HEMATOCRIT (test code = HCT) 30.7 % 37.0-49.0 L MEAN CELL VOLUME (test code = 86 fL 80-94 N MCV) MEAN CELL HGB (test code = MCH) 26.5 pg 27-31 L MEAN CELL HGB CONCENTRATION 30.9 g/dL 33-37 L (test code = MCHC) RED CELL DISTRIBUTION WIDTH 12.8 % 11.5-15.5 N (test code = RDW) PLATELET COUNT (test code = 175 x10 3/uL 130-400 N PLT) MEAN PLATELET VOLUME (test code 11.1 fL 9.4-16.4 N = MPV) NEUTROPHIL % (test code = NT%) 62.0 % 43-65 N IMMATURE GRANULOCYTE % (test 0.3 % 0.0-2.0 N code = IG%) LYMPHOCYTE % (test code = LY%) 21.3 % 20.5-45.5 N MONOCYTE % (test code = MO%) 13.1 % 5.5-11.7 H EOSINOPHIL % (test code = EO%) 2.7 % 0.9-2.9 N BASOPHIL % (test code = BA%) 0.6 % 0.2-1.0 N NUCLEATED RBC % (test code = 0.0 % 0-1.0 N NRBC%) NEUTROPHIL # (test code = NT#) 2.03 x10 3/uL 2.2-4.8 L IMMATURE GRANULOCYTE # (test 0.01 x10 3/uL 0-0.03 N code = IG#) LYMPHOCYTE # (test code = LY#) 0.70 x10 3/uL 1.3-2.9 L MONOCYTE # (test code = MO#) 0.43 x10 3/uL 0.3-0.8 N EOSINOPHIL # (test code = EO#) 0.09 x10 3/uL 0.0-0.2 N BASOPHIL # (test code = BA#) 0.02 x10 3/uL 0.0-0.1 N ALPHA FETOPROTEIN TUMOR [id number] 06:10:00 Test Item Value Reference Interpretation Comments Range ALPHA FETOPROTEIN 3.6 ng/mL 0.0-8.3 [facility] [employer] TUMOR MARKER Electrochemilum inescence (test code = Immunoassay(ECL IA)Values AFPTM) obtained with d ifferent assay methods or kits cannotbe used interchangeably . Results cannot be inter preted asabsolute evid ence of the presence or abs ence of malignantdiseas e.This test is not interpretab le in females.Perform ed At: [facility] [id number] Kyle L MD Ph:[phone] Test results were obtained b y the ABDI MEIA methodolog y.Values obtained with d ifferent assay methodologies s houldnot be used interchang eably in serial AFP test ing. Assayresults sh ould not be interpreted as absolute evidence ofthe presence or absence of chriss gnant disease. These resultsar e not interpretable i n females. COMPREHENSIVE METABOLIC [id number] 03:47:00 Test Item Value Reference Range Interpretation Comments SODIUM (test code = 136 mmol/L 137-145 L NA) POTASSIUM (test code 3.7 mmol/L 3.4-5.0 N = K) CHLORIDE (test code 105 mmol/L 98-107 N = CL) CARBON DIOXIDE (test 26 mmol/L 22-30 N code = CO2) GLUCOSE (test code = 70 mg/dL 74-106 L GLU) BLOOD UREA NITROGEN 13 mg/dL 9-20 N (test code = BUN) GLOMERULAR 93 >60 The estimated FILTRATION RATE glomerular f iltration (test code = GFR) rate is co mputed usingpatient ra ce, age (>18), sex, and serum creatinine. If anyof the needed data elements are mi ssing the Laboratory cannot compute an bobby mation of the glomerul ar filtration rate . CREATININE (test 1.1 mg/dL 0.7-1.3 N code = CREAT) TOTAL PROTEIN (test 6.2 g/dL 6.3-8.2 L code = PROT) " A positive bias m ay occur for patients ta janessa Eltrombopag(a b one marrow stimulan t used to treat thrombocytopeni a andaplastic anemia)." ALBUMIN (test code = 3.5 g/dL 3.5-5.0 N ALB) CALCIUM (test code = 8.3 mg/dL 8.4-10.2 L CA) BILIRUBIN TOTAL 0.8 mg/dL 0.2-1.3 N "A positive bias may (test code = BILT) occur for patients taking Eltrombo pag(a bone marrow sti mulant used to treat thrombocytopeni a andaplastic ane zhang)." BILIRUBIN CONJUGATED 0 mg/dL 0-0.3 N "A posi tive bias may (test code = BILCON) occur f or patients taking Eltrombo pag(a bone marrow sti mulant used to treat thrombocytopeni a andaplastic ane zhang)." C ONJUGATE D BILIRUBIN IS THE REPLACEMENT ASS AY FOR DIRECTBILIRUBIN . BILIRUBIN 0.5 mg/dL 0-1.1 N UNCONJUGATED (test code = BILUNC) SGOT/AST (test code 30 U/L 15-46 N = AST) SGPT/ALT (test code 19 U/L 0-34 N = ALT) ALKALINE PHOSPHATASE 54 U/L 38-126 N (test code = ALKP) [id number] 03:47:00 Test Item Value Reference Range Interpretation Comments PHOSPHOROUS (test code = PHOS) 2.4 mg/dL 2.5-4.5 L [id number] 03:47:00 Test Item Value Reference Range Interpretation Comments MAGNESIUM (test code = MAG) 2.1 mg/dL 1.6-2.3 N CBC W/AUTO [id number] 03:28:00 Test Item Value Reference Range Interpretation Comments WHITE BLOOD CELL (test code = 4.0 x10 3/uL 5.0-12.0 L WBC) RED BLOOD CELL (test code = 3.67 x10 6/uL 4.70-6.10 L RBC) HEMOGLOBIN (test code = HGB) 9.8 g/dL 14.0-18.0 L HEMATOCRIT (test code = HCT) 32.3 % 37.0-49.0 L MEAN CELL VOLUME (test code = 88 fL 80-94 N MCV) MEAN CELL HGB (test code = MCH) 26.7 pg 27-31 L MEAN CELL HGB CONCENTRATION 30.3 g/dL 33-37 L (test code = MCHC) RED CELL DISTRIBUTION WIDTH 13.2 % 11.5-15.5 N (test code = RDW) PLATELET COUNT (test code = 158 x10 3/uL 130-400 N PLT) MEAN PLATELET VOLUME (test code 11.2 fL 9.4-16.4 N = MPV) NEUTROPHIL % (test code = NT%) 65.0 % 43-65 N IMMATURE GRANULOCYTE % (test 0.3 % 0.0-2.0 N code = IG%) LYMPHOCYTE % (test code = LY%) 21.5 % 20.5-45.5 N MONOCYTE % (test code = MO%) 10.4 % 5.5-11.7 N EOSINOPHIL % (test code = EO%) 2.3 % 0.9-2.9 N BASOPHIL % (test code = BA%) 0.5 % 0.2-1.0 N NUCLEATED RBC % (test code = 0.0 % 0-1.0 N NRBC%) NEUTROPHIL # (test code = NT#) 2.57 x10 3/uL 2.2-4.8 N IMMATURE GRANULOCYTE # (test 0.01 x10 3/uL 0-0.03 N code = IG#) LYMPHOCYTE # (test code = LY#) 0.85 x10 3/uL 1.3-2.9 L MONOCYTE # (test code = MO#) 0.41 x10 3/uL 0.3-0.8 N EOSINOPHIL # (test code = EO#) 0.09 x10 3/uL 0.0-0.2 N BASOPHIL # (test code = BA#) 0.02 x10 3/uL 0.0-0.1 N COMPREHENSIVE METABOLIC [id number] 18:19:00 Test Item Value Reference Range Interpretation Comments SODIUM (test code = 137 mmol/L 137-145 N NA) POTASSIUM (test code 3.9 mmol/L 3.4-5.0 N = K) CHLORIDE (test code 106 mmol/L 98-107 N = CL) CARBON DIOXIDE (test 25 mmol/L 22-30 N code = CO2) GLUCOSE (test code = 80 mg/dL 74-106 N GLU) BLOOD UREA NITROGEN 13 mg/dL 9-20 N (test code = BUN) GLOMERULAR 93 >60 The estimated FILTRATION RATE glomerular f iltration (test code = GFR) rate is co mputed usingpatient ra ce, age (>18), sex, and serum creatinine. If anyof the needed data elements are mi ssing the Laboratory cannot compute an bobby mation of the glomerul ar filtration rate . CREATININE (test 1.1 mg/dL 0.7-1.3 N code = CREAT) TOTAL PROTEIN (test 6.3 g/dL 6.3-8.2 N code = PROT) " A positive bias m ay occur for patients ta janessa Eltrombopag(a b one marrow stimulan t used to treat thrombocytopeni a andaplastic anemia)." ALBUMIN (test code = 3.6 g/dL 3.5-5.0 N ALB) CALCIUM (test code = 8.6 mg/dL 8.4-10.2 N CA) BILIRUBIN TOTAL 1.0 mg/dL 0.2-1.3 N "A positive bias may (test code = BILT) occur for patients taking Eltrombo pag(a bone marrow sti mulant used to treat thrombocytopeni a andaplastic ane zhang)." BILIRUBIN CONJUGATED 0 mg/dL 0-0.3 N "A posi tive bias may (test code = BILCON) occur f or patients taking Eltrombo pag(a bone marrow sti mulant used to treat thrombocytopeni a andaplastic ane zhang)." C ONJUGATE D BILIRUBIN IS THE REPLACEMENT ASS AY FOR DIRECTBILIRUBIN . BILIRUBIN 0.8 mg/dL 0-1.1 N UNCONJUGATED (test code = BILUNC) SGOT/AST (test code 28 U/L 15-46 N = AST) SGPT/ALT (test code 19 U/L 0-34 N = ALT) ALKALINE PHOSPHATASE 54 U/L 38-126 N (test code = ALKP) Spec Comments: ADD TO BLOOD IN LAB IF POSSIBLEVITAMIN [id number] 18:19:00 Test Item Value Reference Range Interpretation Comments VITAMIN B12 (test code 331 pg/mL 239-931 N = VITB12) *A positive bias m ay occur for patie nts taking BIOTINsupplemen ts. Spec Comments: ADD TO BLOOD IN LAB IF POSSIBLEFOLIC [id number] 18:19:00 Test Item Value Reference Range Interpretation Comments FOLIC ACID (test 8.57 ng/mL REFERENCE R EDBI:2.76 - code = FOL) >20 ng/mL A positive bias m ay occur on patients rosey ing BIOTINsupplemen ts. Spec Comments: ADD TO BLOOD IN LAB IF [id number] 18:19:00 Test Item Value Reference Range Interpretation Comments FERRITIN (test code = 34.9 ng/mL 17.464 N CRISTY) A positive bias m ay occur for patie nts taking BIOTINsupplemen ts. Spec Comments: ADD TO BLOOD IN LAB IF POSSIBLECOMPREHENSIVE METABOLIC PANEL 2021-01-18 17:44:00 Test Item Value Reference Range Interpretation Comments SODIUM (test code = 137 mmol/L 137-145 N NA) POTASSIUM (test code 3.9 mmol/L 3.4-5.0 N = K) CHLORIDE (test code 106 mmol/L 98-107 N = CL) CARBON DIOXIDE (test 25 mmol/L 22-30 N code = CO2) GLUCOSE (test code = 80 mg/dL 74-106 N GLU) BLOOD UREA NITROGEN 13 mg/dL 9-20 N (test code = BUN) GLOMERULAR 93 >60 The estimated FILTRATION RATE glomerular f iltration (test code = GFR) rate is co mputed usingpatient ra ce, age (>18), sex, and serum creatinine. If anyof the needed data elements are mi ssing the Laboratory cannot compute an bobby mation of the glomerul ar filtration rate . CREATININE (test 1.1 mg/dL 0.7-1.3 N code = CREAT) TOTAL PROTEIN (test 6.3 g/dL 6.3-8.2 N code = PROT) " A positive bias m ay occur for patients ta janessa Eltrombopag(a b one marrow stimulan t used to treat thrombocytopeni a andaplastic anemia)." ALBUMIN (test code = 3.6 g/dL 3.5-5.0 N ALB) CALCIUM (test code = 8.6 mg/dL 8.4-10.2 N CA) BILIRUBIN TOTAL 1.0 mg/dL 0.2-1.3 N "A positive bias may (test code = BILT) occur for patients taking Eltrombo pag(a bone marrow sti mulant used to treat thrombocytopeni a andaplastic ane zhang)." BILIRUBIN CONJUGATED 0 mg/dL 0-0.3 N "A posi tive bias may (test code = BILCON) occur f or patients taking Eltrombo pag(a bone marrow sti mulant used to treat thrombocytopeni a andaplastic ane zhang)." C ONJUGATE D BILIRUBIN IS THE REPLACEMENT ASS AY FOR DIRECTBILIRUBIN . BILIRUBIN 0.8 mg/dL 0-1.1 N UNCONJUGATED (test code = BILUNC) SGOT/AST (test code 28 U/L 15-46 N = AST) SGPT/ALT (test code 19 U/L 0-34 N = ALT) ALKALINE PHOSPHATASE 54 U/L 38-126 N (test code = ALKP) Spec Comments: ADD TO BLOOD IN LAB IF POSSIBLEVITAMIN [id number] 17:44:00 Test Item Value Reference Range Interpretation Comments VITAMIN B12 (test code = VITB12) pg/mL 239-931 Spec Comments: ADD TO BLOOD IN LAB IF POSSIBLEFOLIC [id number] 17:44:00 Test Item Value Reference Range Interpretation Comments FOLIC ACID (test code = FOL) ng/mL Spec Comments: ADD TO BLOOD IN LAB IF [id number] 17:44:00 Test Item Value Reference Range Interpretation Comments FERRITIN (test code = 34.9 ng/mL 17.9-464 N CRISTY) A positive bias m ay occur for patie nts taking BIOTINsupplemen ts. Spec Comments: ADD TO BLOOD IN LAB IF POSSIBLETOTAL IRON BINDING CAPACITY 2021-01-18 17:38:00 Test Item Value Reference Range Interpretation Comments TOTAL IRON BINDING CAPACITY (test 351 ug/dL 261-462 N code = TIBC) Spec Comments: ADD TO BLOOD IN LAB IF POSSIBLECOMPREHENSIVE METABOLIC PANEL 2021-01-18 17:08:00 Test Item Value Reference Range Interpretation Comments SODIUM (test code = 137 mmol/L 137-145 N NA) POTASSIUM (test code 3.9 mmol/L 3.4-5.0 N = K) CHLORIDE (test code 106 mmol/L 98-107 N = CL) CARBON DIOXIDE (test 25 mmol/L 22-30 N code = CO2) GLUCOSE (test code = 80 mg/dL 74-106 N GLU) BLOOD UREA NITROGEN 13 mg/dL 9-20 N (test code = BUN) GLOMERULAR 93 >60 The estimated FILTRATION RATE glomerular f iltration (test code = GFR) rate is co mputed usingpatient ra ce, age (>18), sex, and serum creatinine. If anyof the needed data elements are mi ssing the Laboratory cannot compute an bobby mation of the glomerul ar filtration rate . CREATININE (test 1.1 mg/dL 0.7-1.3 N code = CREAT) TOTAL PROTEIN (test 6.3 g/dL 6.3-8.2 N code = PROT) " A positive bias m ay occur for patients ta janessa Eltrombopag(a b one marrow stimulan t used to treat thrombocytopeni a andaplastic anemia)." ALBUMIN (test code = 3.6 g/dL 3.5-5.0 N ALB) CALCIUM (test code = 8.6 mg/dL 8.4-10.2 N CA) BILIRUBIN TOTAL 1.0 mg/dL 0.2-1.3 N "A positive bias may (test code = BILT) occur for patients taking Eltrombo pag(a bone marrow sti mulant used to treat thrombocytopeni a andaplastic ane zhang)." BILIRUBIN CONJUGATED 0 mg/dL 0-0.3 N "A posi tive bias may (test code = BILCON) occur f or patients taking Eltrombo pag(a bone marrow sti mulant used to treat thrombocytopeni a andaplastic ane zhang)." C ONJUGATE D BILIRUBIN IS THE REPLACEMENT ASS AY FOR DIRECTBILIRUBIN . BILIRUBIN 0.8 mg/dL 0-1.1 N UNCONJUGATED (test code = BILUNC) SGOT/AST (test code 28 U/L 15-46 N = AST) SGPT/ALT (test code 19 U/L 0-34 N = ALT) ALKALINE PHOSPHATASE 54 U/L 38-126 N (test code = ALKP) Spec Comments: ADD TO BLOOD IN LAB IF POSSIBLEVITAMIN [id number] 17:08:00 Test Item Value Reference Range Interpretation Comments VITAMIN B12 (test code = VITB12) pg/mL 239-931 Spec Comments: ADD TO BLOOD IN LAB IF POSSIBLEFOLIC [id number] 17:08:00 Test Item Value Reference Range Interpretation Comments FOLIC ACID (test code = FOL) ng/mL Spec Comments: ADD TO BLOOD IN LAB IF [id number] 17:08:00 Test Item Value Reference Range Interpretation Comments FERRITIN (test code = CRISTY) ng/mL 17.9-464 Spec Comments: ADD TO BLOOD IN LAB IF [id number] 17:08:00 Test Item Value Reference Range Interpretation Comments IRON (test code = IRON) 18 ug/dL 49-181 L Spec Comments: ADD TO BLOOD IN LAB IF POSSIBLECOMPREHENSIVE METABOLIC PANEL 2021-01-18 17:05:00 Test Item Value Reference Range Interpretation Comments SODIUM (test code = 137 mmol/L 137-145 N NA) POTASSIUM (test code 3.9 mmol/L 3.4-5.0 N = K) CHLORIDE (test code 106 mmol/L 98-107 N = CL) CARBON DIOXIDE (test 25 mmol/L 22-30 N code = CO2) GLUCOSE (test code = 80 mg/dL 74-106 N GLU) BLOOD UREA NITROGEN 13 mg/dL 9-20 N (test code = BUN) GLOMERULAR 93 >60 The estimated FILTRATION RATE glomerular f iltration (test code = GFR) rate is co mputed usingpatient ra ce, age (>18), sex, and serum creatinine. If anyof the needed data elements are mi ssing the Laboratory cannot compute an bobby mation of the glomerul ar filtration rate . CREATININE (test 1.1 mg/dL 0.7-1.3 N code = CREAT) TOTAL PROTEIN (test 6.3 g/dL 6.3-8.2 N code = PROT) " A positive bias m ay occur for patients ta janessa Eltrombopag(a b one marrow stimulan t used to treat thrombocytopeni a andaplastic anemia)." ALBUMIN (test code = 3.6 g/dL 3.5-5.0 N ALB) CALCIUM (test code = 8.6 mg/dL 8.4-10.2 N CA) BILIRUBIN TOTAL 1.0 mg/dL 0.2-1.3 N "A positive bias may (test code = BILT) occur for patients taking Eltrombo pag(a bone marrow sti mulant used to treat thrombocytopeni a andaplastic ane zhang)." BILIRUBIN CONJUGATED 0 mg/dL 0-0.3 N "A posi tive bias may (test code = BILCON) occur f or patients taking Eltrombo pag(a bone marrow sti mulant used to treat thrombocytopeni a andaplastic ane zhang)." C ONJUGATE D BILIRUBIN IS THE REPLACEMENT ASS AY FOR DIRECTBILIRUBIN . BILIRUBIN 0.8 mg/dL 0-1.1 N UNCONJUGATED (test code = BILUNC) SGOT/AST (test code 28 U/L 15-46 N = AST) SGPT/ALT (test code U/L 0-34 = ALT) ALKALINE PHOSPHATASE 54 U/L 38-126 N (test code = ALKP) Spec Comments: ADD TO BLOOD IN LAB IF POSSIBLEVITAMIN [id number] 17:05:00 Test Item Value Reference Range Interpretation Comments VITAMIN B12 (test code = VITB12) pg/mL 239-931 Spec Comments: ADD TO BLOOD IN LAB IF POSSIBLEFOLIC [id number] 17:05:00 Test Item Value Reference Range Interpretation Comments FOLIC ACID (test code = FOL) ng/mL Spec Comments: ADD TO BLOOD IN LAB IF [id number] 17:05:00 Test Item Value Reference Range Interpretation Comments FERRITIN (test code = CRISTY) ng/mL 17.9-464 Spec Comments: ADD TO BLOOD IN LAB IF POSSIBLECBC W/AUTO [id number] 16:48:00 Test Item Value Reference Range Interpretation Comments WHITE BLOOD CELL (test code = 3.9 x10 3/uL 5.0-12.0 L WBC) RED BLOOD CELL (test code = 3.76 x10 6/uL 4.70-6.10 L RBC) HEMOGLOBIN (test code = HGB) 10.2 g/dL 14.0-18.0 L HEMATOCRIT (test code = HCT) 32.3 % 37.0-49.0 L MEAN CELL VOLUME (test code = 86 fL 80-94 N MCV) MEAN CELL HGB (test code = MCH) 27.1 pg 27-31 N MEAN CELL HGB CONCENTRATION 31.6 g/dL 33-37 L (test code = MCHC) RED CELL DISTRIBUTION WIDTH 13.2 % 11.5-15.5 N (test code = RDW) PLATELET COUNT (test code = 167 x10 3/uL 130-400 N PLT) MEAN PLATELET VOLUME (test code 11.2 fL 9.4-16.4 N = MPV) NEUTROPHIL % (test code = NT%) 70.4 % 43-65 H IMMATURE GRANULOCYTE % (test 0.3 % 0.0-2.0 N code = IG%) LYMPHOCYTE % (test code = LY%) 16.7 % 20.5-45.5 L MONOCYTE % (test code = MO%) 10.5 % 5.5-11.7 N EOSINOPHIL % (test code = EO%) 1.8 % 0.9-2.9 N BASOPHIL % (test code = BA%) 0.3 % 0.2-1.0 N NUCLEATED RBC % (test code = 0.0 % 0-1.0 N NRBC%) NEUTROPHIL # (test code = NT#) 2.75 x10 3/uL 2.2-4.8 N IMMATURE GRANULOCYTE # (test 0.01 x10 3/uL 0-0.03 N code = IG#) LYMPHOCYTE # (test code = LY#) 0.65 x10 3/uL 1.3-2.9 L MONOCYTE # (test code = MO#) 0.41 x10 3/uL 0.3-0.8 N EOSINOPHIL # (test code = EO#) 0.07 x10 3/uL 0.0-0.2 N BASOPHIL # (test code = BA#) 0.01 x10 3/uL 0.0-0.1 N Spec Comments: ADD TO BLOOD IN LAB IF POSSIBLERETICULOCYTE [id number] 16:48:00 Test Item Value Reference Range Interpretation Comments RETICULOCYTE COUNT (test code = RETICA) 1.6 % 0.5-1.5 H Spec Comments: ADD TO BLOOD IN LAB IF POSSIBLECOMPREHENSIVE METABOLIC PANEL 2021-01-18 04:25:00 Test Item Value Reference Range Interpretation Comments SODIUM (test code = 136 mmol/L 137-145 L NA) POTASSIUM (test code 3.9 mmol/L 3.4-5.0 N = K) CHLORIDE (test code 105 mmol/L 98-107 N = CL) CARBON DIOXIDE (test 25 mmol/L 22-30 N code = CO2) GLUCOSE (test code = 98 mg/dL 74-106 N GLU) BLOOD UREA NITROGEN 13 mg/dL 9-20 N (test code = BUN) GLOMERULAR 93 >60 The estimated FILTRATION RATE glomerular f iltration (test code = GFR) rate is co mputed usingpatient ra ce, age (>18), sex, and serum creatinine. If anyof the needed data elements are mi ssing the Laboratory cannot compute an bobby mation of the glomerul ar filtration rate . CREATININE (test 1.1 mg/dL 0.7-1.3 N code = CREAT) TOTAL PROTEIN (test 7.0 g/dL 6.3-8.2 N code = PROT) " A positive bias m ay occur for patients ta janessa Eltrombopag(a b one marrow stimulan t used to treat thrombocytopeni a andaplastic anemia)." ALBUMIN (test code = 3.9 g/dL 3.5-5.0 N ALB) CALCIUM (test code = 8.5 mg/dL 8.4-10.2 N CA) BILIRUBIN TOTAL 1.0 mg/dL 0.2-1.3 N "A positive bias may (test code = BILT) occur for patients taking Eltrombo pag(a bone marrow sti mulant used to treat thrombocytopeni a andaplastic ane zhang)." BILIRUBIN CONJUGATED 0 mg/dL 0-0.3 N "A posi tive bias may (test code = BILCON) occur f or patients taking Eltrombo pag(a bone marrow sti mulant used to treat thrombocytopeni a andaplastic ane zhang)." C ONJUGATE D BILIRUBIN IS THE REPLACEMENT ASS AY FOR DIRECTBILIRUBIN . BILIRUBIN 0.8 mg/dL 0-1.1 N UNCONJUGATED (test code = BILUNC) SGOT/AST (test code 31 U/L 15-46 N = AST) SGPT/ALT (test code 23 U/L 0-34 N = ALT) ALKALINE PHOSPHATASE 63 U/L 38-126 N (test code = ALKP) [id number] 04:25:00 Test Item Value Reference Range Interpretation Comments PHOSPHOROUS (test code = PHOS) 3.2 mg/dL 2.5-4.5 N [id number] 04:25:00 Test Item Value Reference Range Interpretation Comments MAGNESIUM (test code = MAG) 2.2 mg/dL 1.6-2.3 N COMPREHENSIVE METABOLIC [id number] 04:14:00 Test Item Value Reference Range Interpretation Comments SODIUM (test code = 136 mmol/L 137-145 L NA) POTASSIUM (test code 3.9 mmol/L 3.4-5.0 N = K) CHLORIDE (test code 105 mmol/L 98-107 N = CL) CARBON DIOXIDE (test 25 mmol/L 22-30 N code = CO2) GLUCOSE (test code = 98 mg/dL 74-106 N GLU) BLOOD UREA NITROGEN 13 mg/dL 9-20 N (test code = BUN) GLOMERULAR 93 >60 The estimated FILTRATION RATE glomerular f iltration (test code = GFR) rate is co mputed usingpatient ra ce, age (>18), sex, and serum creatinine. If anyof the needed data elements are mi ssing the Laboratory cannot compute an bobby mation of the glomerul ar filtration rate . CREATININE (test 1.1 mg/dL 0.7-1.3 N code = CREAT) TOTAL PROTEIN (test 7.0 g/dL 6.3-8.2 N code = PROT) " A positive bias m ay occur for patients ta janessa Eltrombopag(a b one marrow stimulan t used to treat thrombocytopeni a andaplastic anemia)." ALBUMIN (test code = 3.9 g/dL 3.5-5.0 N ALB) CALCIUM (test code = 8.5 mg/dL 8.4-10.2 N CA) BILIRUBIN TOTAL 1.0 mg/dL 0.2-1.3 N "A positive bias may (test code = BILT) occur for patients taking Eltrombo pag(a bone marrow sti mulant used to treat thrombocytopeni a andaplastic ane zhang)." BILIRUBIN CONJUGATED 0 mg/dL 0-0.3 N "A posi tive bias may (test code = BILCON) occur f or patients taking Eltrombo pag(a bone marrow sti mulant used to treat thrombocytopeni a andaplastic ane zhang)." C ONJUGATE D BILIRUBIN IS THE REPLACEMENT ASS AY FOR DIRECTBILIRUBIN . BILIRUBIN 0.8 mg/dL 0-1.1 N UNCONJUGATED (test code = BILUNC) SGOT/AST (test code 31 U/L 15-46 N = AST) SGPT/ALT (test code U/L 0-34 = ALT) ALKALINE PHOSPHATASE 63 U/L 38-126 N (test code = ALKP) [id number] 04:14:00 Test Item Value Reference Range Interpretation Comments PHOSPHOROUS (test code = PHOS) mg/dL 2.5-4.5 [id number] 04:14:00 Test Item Value Reference Range Interpretation Comments MAGNESIUM (test code = MAG) mg/dL 1.6-2.3 CBC W/AUTO [id number] 03:59:00 Test Item Value Reference Range Interpretation Comments WHITE BLOOD CELL (test code = 6.1 x10 3/uL 5.0-12.0 N WBC) RED BLOOD CELL (test code = 4.34 x10 6/uL 4.70-6.10 L RBC) HEMOGLOBIN (test code = HGB) 11.6 g/dL 14.0-18.0 L HEMATOCRIT (test code = HCT) 37.2 % 37.0-49.0 N MEAN CELL VOLUME (test code = 86 fL 80-94 N MCV) MEAN CELL HGB (test code = MCH) 26.7 pg 27-31 L MEAN CELL HGB CONCENTRATION 31.2 g/dL 33-37 L (test code = MCHC) RED CELL DISTRIBUTION WIDTH 13.1 % 11.5-15.5 N (test code = RDW) PLATELET COUNT (test code = 191 x10 3/uL 130-400 N PLT) MEAN PLATELET VOLUME (test code 11.4 fL 9.4-16.4 N = MPV) NEUTROPHIL % (test code = NT%) 80.3 % 43-65 H IMMATURE GRANULOCYTE % (test 0.3 % 0.0-2.0 N code = IG%) LYMPHOCYTE % (test code = LY%) 10.6 % 20.5-45.5 L MONOCYTE % (test code = MO%) 7.9 % 5.5-11.7 N EOSINOPHIL % (test code = EO%) 0.7 % 0.9-2.9 L BASOPHIL % (test code = BA%) 0.2 % 0.2-1.0 N NUCLEATED RBC % (test code = 0.0 % 0-1.0 N NRBC%) NEUTROPHIL # (test code = NT#) 4.87 x10 3/uL 2.2-4.8 H IMMATURE GRANULOCYTE # (test 0.02 x10 3/uL 0-0.03 N code = IG#) LYMPHOCYTE # (test code = LY#) 0.64 x10 3/uL 1.3-2.9 L MONOCYTE # (test code = MO#) 0.48 x10 3/uL 0.3-0.8 N EOSINOPHIL # (test code = EO#) 0.04 x10 3/uL 0.0-0.2 N BASOPHIL # (test code = BA#) 0.01 x10 3/uL 0.0-0.1 N DRUGS OF ABUSE [id number] 00:31:00 Test Item Value Reference Range Interpretation Comments UR COCAINE (test code = NEGATIVE NEGATIVE CUTO FF >/= 300 NG/ML COCAU) UR THC CANABINOIDS QL NEGATIVE NEGATIVE CUTOFF >/= 20 NG/ML SQN (test code = CANU) UR AMPHETAMINE QL SQN NEGATIVE NEGATIVE CUTOFF >/= 500 NG/ML (test code = AMPHU) UR BARBITURATE QUAL NEGATIVE NEGATIVE CUTOFF > /= 200 NG/ML (test code = BARBQLU) UR BENZODIAZEPINE (test NEGATIVE NEGATIVE CUTO FF >/= 200 NG/ML code = BENZU) UR OPIATES QUAL (test POSITIVE NEGATIVE A CUTOFF >/= 300 NG/ML code = OPIAQLU) UR PHENCYCLIDINE (PCP) NEGATIVE NEGATIVE CUTOF F >/= 25 NG/ML A (test code = PHENCU) Positiv e drug screen result provides only a "PreliminaryPos itive" test result.If a confirmation of positive result is necessary, a morespecific confirmatory te st must be ordered by the physician. Drug screens are per formed for medical (i. e. treatment)purpo ses only. Unconfirm ed screening resul ts must not beused for non-medical pur poses (e.g employment testing). URINALYSIS [id number] 21:29:00 Test Item Value Reference Range Interpretation Comments UA COLOR (test code Yellow Yellow = COLU) UA APPEARANCE (test Clear Clear code = APPU) UA GLUCOSE DIPSTICK Negative Negative (test code = DGLUU) UA BILIRUBIN Negative Negative DIPSTICK (test code = BILU) UA KETONE DIPSTICK 15 (1+) mg/dL Negative A (test code = KETU) UA SPECIFIC GRAVITY 1.027 <1.030 (test code = SGU) UA BLOOD DIPSTICK 2+ Negative A (test code = CANDY) UA PH DIPSTICK (test 5.0 5.0-8.0 code = BOUCHRA) UA PROTEIN DIPSTICK NEGATIVE mg/dL Negative (test code = PROU) UA UROBILINOGEN Negative mg/dL Negative DIPSTICK (test code = URO) UA NITRITE DIPSTICK Negative Negative (test code = TERESSA) UA LEUKOCYTE NEGATIVE Negative ESTERASE DIPSTICK (test code = LEUU) UA WBC (test code = 0-3 /HPF See_Comment [Automa madhu WBCU) message] The system which generated this result transmit madhu reference range : <4-5. The reference range was not used to interpret this result as normal/abnormal . UA RBC (test code = 0-3 /HPF See_Comment [Automa madhu RBCU) message] The system which generated this result transmit madhu reference range : <4-5. The reference range was not used to interpret this result as normal/abnormal . UA BACTERIA (test None /HPF None-Rare code = BACU) UA SQUAMOUS CELLS 0-5 (RARE) /HPF See_Comment [Autom ated (test code = SQU) message] T he system which generated this result transmit madhu reference range : 0-5 (RARE). The reference range was not used to interpret this result as normal/abnormal . [id number] 20:41:00 Test Item Value Reference Range Interpretation Comments AMMONIA (test code = AMM) < 9 umol/L 9-30 L GAMMA GLUTAMYL [id number] 20:41:00 Test Item Value Reference Range Interpretation Comments GAMMA GLUTAMYL TRANSPEPTIDASE (test 140 U/L 12-58 H code = GGT) [id number] 20:41:00 Test Item Value Reference Range Interpretation Comments ALCOHOL (test code = < 10 mg/dL <10 ~~~~~~ ~~~~~~~~~~~~~~~ ALC) ~~~~~~~~~~~~~~~ ~~~~~~~ ~~~~~~~ RESULTS ARE TO BE USED FOR MED ICAL PURPOSES ONLY.F OR LEGAL PURPOSES THE SPECIMEN MUST B E COLLECTED BY A CHAINOF CUSTODY. LEGAL TESTING IS NOT PERFORME D BY THIS FACILITY. ~~~~~~~~~~~~~~~ ~~~~~~~ ~~~~~~~~~~~~~~~ ~~~~~~~ ~~~~~~ PROTHROMBIN [id number] 20:25:00 Test Item Value Reference Range Interpretation Comments PROTHROMBIN TIME 12.0 SECONDS 9.2-12.1 N PATIENT (test code = PTP) INTERNATIONAL NORMAL 1.1 The INR is to be used RATIO (test code = only for monitoring INR) ORAL ANTICOAGULANTTH ERAPY. Indication INR Value1. Prophylaxis/julia atment of: Venous Thro mbosis, Pulmonary Embol ism 2.0 - 3.02. Prevent ion of systemic emboli sm from: Tissue he art valves 2.0 - 3. 0 Acute myocardial infa rction (to present sys temic embolism)* 2.0 - 3.0 Valvular heart disease 2.0 - 3.0 Atri al fibrillation 2. 0 - 3.03. Mechanica l prosthetic valv es (high risk) 2.5 - 3.5 * If oral anticoagulant t herapy is elected to preventrecurren t myocardial infa rction, an INR of 2.5-3 .5 isrecommended, consistent with Food and Drug Administrationr ecommen dations. THROMBOPLASTIN TIME [id number] 20:25:00 Test Item Value Reference Range Interpretation Comments THROMBOPLASTIN TIME 26.6 SECONDS 23.4-37.0 N Therape utic Range PARTIAL (test code = for Hep ehsan PTT) EFFECTIVE Heparin IU/mL a PTT Seconds0.3 64.3 0.7 88.8 - CT ABD PELVIS [id number] 12:35:00 [facility] : 1975 Sex: M FAX: Lacey Fuentes Nelsy [phone] [place]: St: REG Name: OLIVIA COOK [facility] [place] : 1975 Age/S: 45/M [address]: [id number] Loc: [place] [address] Phys: Lacey Fuentes [employer]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 No oral contrast was given Portal venous phase - abdomen and pelvis No delayed phase images were obtained. Reconstructions - coronal and sagittal planes This exam was performed according to our departmental dose-optimization program, which includes automated exposure control, adjustment of the mA and/or kV according to patient size and/or use of iterative reconstruction technique COMPARISON: None FINDINGS: Statements: None. Thoracic: Included images of the lower chest demonstrate no abnormalities. Hepatobiliary: Hepatic steatosis is present. 8.7 cm partially enhancing mass identified in the right hepatic lobe. The gallbladder is normal. No biliary dilation. Pancreas: Mild peripancreatic edema is noted. Spleen: 1 cm hypodense lesion identified within the spleen. Adrenals: Normal. Genitourinary: The kidneys are normal. No evidence of hydronephrosis. Evaluation of the bladder is limited, but no obvious bladder abnormality is present. Gastrointestinal: No bowel obstruction or perienteric inflammation. The appendix is normal. Vascular: No evidence of aneurysm or dissection. PAGE 1 Signed Report (CONTINUED) FAX: Lacey Fuentes [phone] [place]: St: REG------ Name: OLIVIA COOK [facility] : 1975 Age/S: 45/M [address] Unit: [id number] Loc: [place] [address] Phys: Lacye Fuentes NP Acct: [id number] Dis Date: Status: REG ER PHONE #: [phone] Exam Date:01/17/2021 1219 FAX #: [phone] Reason: epigastric, upper abd pain EXAMS: CPT CODE: [id number] CTABD PELVIS W/CONT 46143 (Continued) Lymphatics: No enlarged lymph nodes by CT size criteria. Bones/Soft Tissues: No acute osseous findings. No ventral hernias. Peritoneum/Other: No extraluminal air. No extraluminal fluid. IMPRESSION: Mild pancreatitis. No peripancreatic fluid collections. Normal enhan cement of the pancreatic parenchyma. Hepatic steatosis. 8.7 cm right hepatic lobe mass incompletely characterized on this examination. Recommend triple phase MRI for further evaluation of the hepatic mass. 1 cm hypodense round splenic lesion likely a cyst. at 1235 Reported and signed by: Joel Garcia MD CC: Lacey Fuentes NP Technologist: JASS AGUILAR Trnscrd Dt/Tm: 01/17/2021 (3895) [id number] Orig Print D/T: S: 01/17/2021 (0828 PAGE 2 Signed ReportBEDSIDE [id number] 12:18:00 Test Item Value Reference Range Interpretation Comments BEDSIDE CREATININE (test code = 1.30 mg/dL 0.51-1.19 H CREATBED) TROPONIN I [id number] 11:56:00 Test Item Value Reference Range Interpretation Comments TROPONIN I RAPID 0.01 ng/mL 0.00-0.079 N ISTAT TROP ONIN I (test code = CRITERIA0.00-0. 08 ng/mL - TROPIRAP) Negative>0.08 n g/mL - Positive The us e of serial sampling and te sting protocol is are commended practice.An kamila vated troponin level alone is often not suffi cient fordiagnosis of myocardial infarction. Tro ponin results obtaine d by different assay s may vary.Evaluation of the extent of myoca rdial damage based on increase of troponin would be valid only if similar methodology is used. BASIC METABOLIC [id number] 11:45:00 Test Item Value Reference Range Interpretation Comments SODIUM (test code = 137 mmol/L 137-145 N NA) POTASSIUM (test code 3.9 mmol/L 3.4-5.0 N = K) CHLORIDE (test code = 102 mmol/L 98-107 N CL) CARBON DIOXIDE (test 29 mmol/L 22-30 N code = CO2) GLUCOSE (test code = 129 mg/dL 74-106 H GLU) BLOOD UREA NITROGEN 17 mg/dL 9-20 N (test code = BUN) GLOMERULAR FILTRATION 84 >60 The es timated RATE (test code = glomerular filtration GFR) rate is compute d usingpatient ra ce, age (>18), sex, and serum creatinine. If anyof the needed data elements are mi ssing the Laboratory cannot compute an bobby mation of the glomerul ar filtration rate . CREATININE (test code 1.2 mg/dL 0.7-1.3 N = CREAT) CALCIUM (test code = 9.5 mg/dL 8.4-10.2 N CA) LIVER FUNCTION [id number] 11:45:00 Test Item Value Reference Range Interpretation Comments TOTAL PROTEIN (test 7.6 g/dL 6.3-8.2 N code = PROT) "A positive bias may occur for patients taking Eltrombopag(a b one marrow stimulan t used to treat thrombocy topenia andaplastic anemia)." ALBUMIN (test code = 4.5 g/dL 3.5-5.0 N ALB) BILIRUBIN TOTAL 1.2 mg/dL 0.2-1.3 N "A positive bias may (test code = BILT) occur for patients taking Eltrombo pag(a bone marrow sti mulant used to treat thrombocytopeni a andaplastic ane zhang)." BILIRUBIN CONJUGATED 0 mg/dL 0-0.3 N "A posi tive bias may (test code = BILCON) occur f or patients taking Eltrombo pag(a bone marrow sti mulant used to treat thrombocytopeni a andaplastic ane zhang)." CON JUGATED BILIRUBIN IS TH E REPLACEMENT ASS AY FOR DIRECTBILIRUBIN . BILIRUBIN 1.2 mg/dL 0-1.1 H UNCONJUGATED (test code = BILUNC) SGOT/AST (test code 36 U/L 15-46 N = AST) SGPT/ALT (test code 31 U/L 0-34 N = ALT) ALKALINE PHOSPHATASE 80 U/L 38-126 N (test code = ALKP) [id number] 11:45:00 Test Item Value Reference Range Interpretation Comments LIPASE (test code = > 4000 U/L 23-300 H ~~~~~~~~ ~~~~~~~~~~~~~~ LIP) ~~~~~~~~~~~~~~~ ~~~~~~~ ~~~~~~~~~~~~~Re ported result verified with auto diltuion procedure.~~~~~ ~~~~~~~ ~~~~~~~~~~~~~~~ ~~~~~~~ ~~~~~~~~~~~~~~~ ~~~~~~~ ~ BASIC METABOLIC [id number] 11:20:00 Test Item Value Reference Range Interpretation Comments SODIUM (test code = 137 mmol/L 137-145 N NA) POTASSIUM (test code 3.9 mmol/L 3.4-5.0 N = K) CHLORIDE (test code = 102 mmol/L 98-107 N CL) CARBON DIOXIDE (test 29 mmol/L 22-30 N code = CO2) GLUCOSE (test code = 129 mg/dL 74-106 H GLU) BLOOD UREA NITROGEN 17 mg/dL 9-20 N (test code = BUN) GLOMERULAR FILTRATION 84 >60 The es timated RATE (test code = glomerular filtration GFR) rate is compute d usingpatient ra ce, age (>18), sex, and serum creatinine. If anyof the needed data elements are mi ssing the Laboratory cannot compute an bobby mation of the glomerul ar filtration rate . CREATININE (test code 1.2 mg/dL 0.7-1.3 N = CREAT) CALCIUM (test code = 9.5 mg/dL 8.4-10.2 N CA) LIVER FUNCTION [id number] 11:20:00 Test Item Value Reference Range Interpretation Comments TOTAL PROTEIN (test 7.6 g/dL 6.3-8.2 N code = PROT) "A positive bias may occur for patients taking Eltrombopag(a b one marrow stimulan t used to treat thrombocy topenia andaplastic anemia)." ALBUMIN (test code = 4.5 g/dL 3.5-5.0 N ALB) BILIRUBIN TOTAL 1.2 mg/dL 0.2-1.3 N "A positive bias may (test code = BILT) occur for patients taking Eltrombo pag(a bone marrow sti mulant used to treat thrombocytopeni a andaplastic ane zhang)." BILIRUBIN CONJUGATED 0 mg/dL 0-0.3 N "A posi tive bias may (test code = BILCON) occur f or patients taking Eltrombo pag(a bone marrow sti mulant used to treat thrombocytopeni a andaplastic ane zhang)." CON JUGATED BILIRUBIN IS TH E REPLACEMENT ASS AY FOR DIRECTBILIRUBIN . BILIRUBIN 1.2 mg/dL 0-1.1 H UNCONJUGATED (test code = BILUNC) SGOT/AST (test code 36 U/L 15-46 N = AST) SGPT/ALT (test code 31 U/L 0-34 N = ALT) ALKALINE PHOSPHATASE 80 U/L 38-126 N (test code = ALKP) [id number] 11:20:00 Test Item Value Reference Range Interpretation Comments LIPASE (test code = LIP) U/L 23-300 CBC W/AUTO [id number] 10:52:00 Test Item Value Reference Range Interpretation Comments WHITE BLOOD CELL (test code = 5.7 x10 3/uL 5.0-12.0 N WBC) RED BLOOD CELL (test code = 4.70 x10 6/uL 4.70-6.10 N RBC) HEMOGLOBIN (test code = HGB) 12.6 g/dL 14.0-18.0 L HEMATOCRIT (test code = HCT) 39.2 % 37.0-49.0 N MEAN CELL VOLUME (test code = 83 fL 80-94 N MCV) MEAN CELL HGB (test code = MCH) 26.8 pg 27-31 L MEAN CELL HGB CONCENTRATION 32.1 g/dL 33-37 L (test code = MCHC) RED CELL DISTRIBUTION WIDTH 13.1 % 11.5-15.5 N (test code = RDW) PLATELET COUNT (test code = 220 x10 3/uL 130-400 N PLT) MEAN PLATELET VOLUME (test code 10.8 fL 9.4-16.4 N = MPV) NEUTROPHIL % (test code = NT%) 71.6 % 43-65 H IMMATURE GRANULOCYTE % (test 0.2 % 0.0-2.0 N code = IG%) LYMPHOCYTE % (test code = LY%) 16.8 % 20.5-45.5 L MONOCYTE % (test code = MO%) 9.5 % 5.5-11.7 N EOSINOPHIL % (test code = EO%) 1.4 % 0.9-2.9 N BASOPHIL % (test code = BA%) 0.5 % 0.2-1.0 N NUCLEATED RBC % (test code = 0.0 % 0-1.0 N NRBC%) NEUTROPHIL # (test code = NT#) 4.08 x10 3/uL 2.2-4.8 N IMMATURE GRANULOCYTE # (test 0.01 x10 3/uL 0-0.03 N code = IG#) LYMPHOCYTE # (test code = LY#) 0.96 x10 3/uL 1.3-2.9 L MONOCYTE # (test code = MO#) 0.54 x10 3/uL 0.3-0.8 N EOSINOPHIL # (test code = EO#) 0.08 x10 3/uL 0.0-0.2 N BASOPHIL # (test code = BA#) 0.03 x10 3/uL 0.0-0.1 N
[2023-08-15 11:57] LABS: Hematocrit 30.5 % (39.6-49.0); Lymphocytes % 21.9 % (15.3-44.8); MCV 73.5 fL (80-100); MPV 8.4 fL (7.6-11.3); Platelets 223 thou/uL (152-406); RBC Red Blood Cell Count 4.14 M/uL (4.33-5.43)
[2023-08-15 12:17] LABS: Albumin 3.2 g/dL (3.4-5.0); Bilirubin Total 0.4 mg/dL (0.2-1.0); Potassium 4.1 mEq/L (3.5-5.1); Protein, Total 7.1 g/dL (6.4-8.2)
--- NOTE | 2023-08-15 12:53 | EDPHYS ---
Physician Documentation [facility] Name: Joey Biswas Age: 48 yrs Sex: Male : 1975 Arrival Date: 08/15/2023 Time: 11:15 Bed 12 Private MD: ED Physician Joey Donovan HPI: 08/15 11:37 This 48 yrs old Black Male presents to ER via Ambulatory with complaints of Leg rt Swelling, Feet Swelling. 11:37 Patient presents to the ED with bilateral lower extremity edema that has been rt intermittent for the past week. It occurs when he has been on his feet for long periods of time at work, does seem to go down when he props his feet up. Denies shortness of breath, that he complaints. Symptoms are mild severity, no other aggravating elevating factors.. Historical: - Allergies: :24 No Known Allergies; iw - Home Meds: 11:24 carvedilol 12.5 mg oral tablet 2 times per day [Active]; amlodipine 10 mg tablet daily iw [Active]; losartan 100 mg oral tablet daily [Active]; - PMHx: 11:24 Hypertensive disorder; iw ROS: 11:37 Constitutional: Negative for fever, chills, and weight loss, Respiratory: Negative for rt shortness of breath, cough, wheezing, and pleuritic chest pain, Abdomen/GI: Negative for abdominal pain, nausea, vomiting, diarrhea, and constipation, Skin: Negative for injury, rash, and discoloration, Neuro: Negative for headache, weakness, numbness, tingling, and seizure, Psych: Negative for depression, anxiety, suicide ideation, homicidal ideation, and hallucinations, 11:37 Cardiovascular: Positive for edema, Negative for chest pain, 11:37 MS/extremity: Positive for swelling, tenderness, Exam: 11:37 Constitutional: This is a well developed, well nourished patient who is awake, alert, rt and in no acute distress. Head/Face: Normocephalic, atraumatic. Chest/axilla: Normal chest wall appearance and motion. Nontender with no deformity. No lesions are appreciated. Cardiovascular: Regular rate and rhythm with a normal S1 and S2. No gallops, murmurs, or rubs. Normal PMI, no JVD. No pulse deficits. Respiratory: Lungs have equal breath sounds bilaterally, clear to auscultation and percussion. No rales, rhonchi or wheezes noted. No increased work of breathing, no retractions or nasal flaring. Abdomen/GI: Soft, non-tender, with normal bowel sounds. No distension or tympany. No guarding or rebound. No evidence of tenderness throughout. Neuro: Awake and alert, GCS 15, oriented to person, place, time, and situation. Cranial nerves II-XII grossly intact. Motor strength 5/5 in all extremities. Sensory grossly intact. Cerebellar exam normal. Normal gait. Psych: Awake, alert, with orientation to person, place and time. Behavior, mood, and affect are within normal limits. 11:37 Musculoskeletal/extremity: 1+ lower extremity edema, skin is normal, no focal tenderness. 11:50 ECG was reviewed by the Attending Physician. rt Vital Signs: 11: BP 154 / 93; Pulse 95; Resp 18; Pulse Ox 98% on R/A; Weight 123.83 kg; Height 6 ft. 2 iw in. ; 11: Body Mass Index 35.05 (123.83 kg, 187.96 cm) iw MDM: 11:30 Patient medically screened. rt 15:49 Differential Diagnosis Peripheral edema, CHF, CKD. Data reviewed: vital signs, nurses rt notes, lab test result(s), EKG. Test considered but Not performed: X-ray: Shortness of breath, normal BNP, chest x-ray not indicated. Counseling: I had a detailed discussion with the patient and/or guardian regarding the historical points, exam findings, and any diagnostic results supporting the discharge/admit diagnosis, lab results, the need for outpatient follow up, to return to the emergency department if symptoms worsen or persist or if there are any questions or concerns that arise at home. 08/15 11:30 Order name: CBC with Diff; Complete Time: 12:25 rt 08/15 11:30 Order name: CMP; Complete Time: 12:25 rt 08/15 11:30 Order name: BNP; Complete Time: 12:25 rt 08/15 11:30 Order name: EKG; Complete Time: 11:31 rt 08/15 11:30 Order name: EKG - Nurse/Tech; Complete Time: 11:50 rt EC: Rate is 89 beats/min. Rhythm is regular, Normal Sinus Rhythm with No ectopy. QRS [place] rt is Normal. [place] interval is normal. QRS interval is normal. QT interval is normal. No Q waves. T waves are Inverted in leads III, aVF. No ST changes noted. Interpreted by me. Administered Medications: No medications were administered Disposition Summary: 08/15/23 12:52 Discharge Ordered Notes: Location: Home rt Problem: new rt Symptoms: have improved rt Condition: Stable rt Diagnosis - Peripheral edema rt - Essential (primary) hypertension rt Followup: rt - With: Private Physician - When: 5 - 6 days - Reason: Discharge Instructions: - Discharge Summary Sheet rt - Hypertension, Adult rt - Peripheral Edema rt Forms: - Work release form iw - Medication Reconciliation Form rt - Thank You Letter rt - Antibiotic Education rt - Prescription Opioid Use rt - Patient Portal Instructions rt - Leadership Thank You Letter rt Prescriptions: - amlodipine 10 mg Oral tablet - take 1 tablet ORAL route daily; 30 tablet; Refills: 0, Product Selection rt Permitted Signatures: Dispatcher [employer] Tatum Bustillos RN RN iw Joey Donovan MD MD rt
--- NOTE | 2023-08-15 12:53 | ER ---
Nurse's Notes [facility] Name: Joey Biswas Age: 48 yrs Sex: Male : 1975 Arrival Date: 08/15/2023 Time: 11:15 Bed 12 Private MD: Diagnosis: Peripheral edema;Essential (primary) hypertension Presentation: 08/15 11:22 Chief complaint: Patient states: i work long hours, standing and walking, and my legs iw and feet swell, and it hurts to the touch , the swelling goes down over night but then it flares up again when I go back to work. Coronavirus screen: At this time, the client does not indicate any symptoms associated with coronavirus-19. Ebola Screen: Patient negative for fever greater than or equal to 101.5 degrees Fahrenheit, and additional compatible Ebola Virus Disease symptoms Patient denies exposure to infectious person. Patient denies travel to an Ebola-affected area in the 21 days before illness onset. No symptoms or risks identified at this time. Initial Sepsis Screen: Does the patient meet any 2 criteria? No. Patient's initial sepsis screen is negative. Does the patient have a suspected source of infection? No. Patient's initial sepsis screen is negative. Risk Assessment: Do you want to hurt yourself or someone else? Patient reports no desire to harm self or others. Onset of symptoms was August 11, 2023. 11:22 Method Of Arrival: Ambulatory iw 11:22 Acuity: TATIANA 3 iw Historical: - Allergies: 11:24 No Known Allergies; iw - Home Meds: 11:24 carvedilol 12.5 mg oral tablet 2 times per day [Active]; amlodipine 10 mg tablet daily iw [Active]; losartan 100 mg oral tablet daily [Active]; - PMHx: 11:24 Hypertensive disorder; iw Vital Signs: 11:22 BP 154 / 93; Pulse 95; Resp 18; Pulse Ox 98% on R/A; Weight 123.83 kg; Height 6 ft. 2 iw in. ; 11:22 Body Mass Index 35.05 (123.83 kg, 187.96 cm) iw ED Course: 11:17 Patient arrived in ED. rg4 11:24 Triage completed. iw 11:24 Joey Donovan MD is Attending Physician. rt 11:25 Arm band placed on. iw 11:50 BNP Sent. bc6 11:50 CMP Sent. bc6 11:50 CBC with Diff Sent. bc6 11:50 Inserted saline lock: 20 gauge in left antecubital area, using aseptic technique. Blood bc6 collected. 13:16 Tatum Bonds, RN is Primary Nurse. iw Administered Medications: No medications were administered Outcome: 12:52 Discharge ordered by . rt 13:24 Patient left the ED. iw Signatures: Tatum Bonds RN RN iw Garcia, Rubi rg4 Joey Donovan MD MD rt Kirstie Black bc6 Corrections: (The following items were deleted from the chart) 11:30 11:22 BP 154 / 93; Pulse 95bpm; Resp 18bpm; Pulse Ox 98% RA; iw iw
[2023-08-15 13:32] VITALS: BP 154/93; O2SAT 98
--- NOTE | 2023-08-18 14:21 | EKG ---
Test Date: 2023-08-15 Test Time: 11:46:44 Membership Solicitor: PATINECE MEASUREMENT RESULTS: Intervals: Rate: 89 ID: [id number] QRSD: 82 QT: 348 QTc: 423 [place]: P: 81 ID: [id number] QRS: 59 T: 1 INTERPRETIVE STATEMENTS: Normal sinus rhythm T wave abnormality, consider inferior ischemia Abnormal ECG No previous ECG available for comparison Electronically Signed On 08-18-23 14:11:41 TEACHER OF THE EMOTIONALLY DISTURBED by Uriel Quezada
== END 2023-08-15 13:24 | disposition home or self-care (01) ==
LOC: ER 11:15
DX: R60.9 Edema, unspecified (principal); I10 Essential (primary) hypertension
CPT/HCPCS: 36415; 80053; 83880; 85025; 93005; 99283